=== PATIENT | male | born 1970 | race Caucasian/White ===

== ENCOUNTER 2022-09-27 15:30 | Inpatient (IN) | payer OTHER ==
[~2022-09-27] VITALS: Ht 160 cm; Wt 53.1 kg
--- NOTE | 2022-09-27 15:59 | NUR ---
PT REFUSED EKG
--- NOTE | 2022-09-27 16:10 | NUR ---
YADIRA KANG38 [facility] "Weak/SOB- missed dialysis twice". PLACED ON BED, AAOX4, BREATHING EVEN AND UNLABORED SATURATING 94% WITH 4LIT O2 VIA NC.
--- NOTE | 2022-09-27 16:11 | NUR ---
MOVE SHEET SUBMITTED.
[2022-09-27] MEDS ORDERED: SODI10PO PO (16:17)
[2022-09-27] MEDS ORDERED: LABE100T5 PO (16:17)
[2022-09-27] MEDS ORDERED: BRIM5DRO11 RIGHTEYE (16:17)
[2022-09-27] MEDS ORDERED: AMLO10TA4 PO (16:17)
[2022-09-27] MEDS ORDERED: INSU100V39 SQ (16:17)
[2022-09-27] MEDS ORDERED: ALBU1.257 IH (16:17)
[2022-09-27] MEDS ORDERED: LATA2.5D15 RIGHTEYE (16:17)
[2022-09-27] MEDS ORDERED: ESCI10TA PO (16:17)
[2022-09-27] MEDS ORDERED: ATOR40TA PO (16:17)
--- NOTE | 2022-09-27 16:39 | NUR ---
FOR FURTHER QUESTIONS: CALL [place] [facility]: [phone]
--- NOTE | 2022-09-27 16:40 | NUR ---
SALINE LOCK ESTABLISHED, BLOOD DRAWN AND SENT TO LAB
--- NOTE | 2022-09-27 16:41 | NUR ---
SWAB FOR COVID19 SENT TO LAB
[2022-09-27 16:59] LABS: BASOPHILS # (AUTO) 0.1 K/uL (0.0-0.2); BASOPHILS % (AUTO) 1.1 % (0.0-2.0); EOSINOPHILS % (AUTO) 1.7 % (0.0-6.0); HEMATOCRIT 22 % (39-51); HEMOGLOBIN 7.1 g/dL (13.5-17.5); LYMPHOCYTES # (AUTO) 0.6 K/uL (0.8-4.8); LYMPHOCYTES % (AUTO) 6.6 % (20.0-44.0); MEAN CORPUSCULAR HGB CONC 32 g/dl (31.0-36.0); MEAN CORPUSCULAR VOLUME 83 fL (80-96); MONOCYTES # (AUTO) 0.4 K/uL (0.1-1.30); MONOCYTES % (AUTO) 4.5 % (2.0-12.0); NEUTROPHILS # (AUTO) 7.3 K/uL (1.8-8.9); NEUTROPHILS % (AUTO) 86.1 % (43.0-81.0); PLATELET COUNT (AUTO) 256 K/uL (150-450); RED BLOOD CELL COUNT(AUTO) 2.65 MIL/uL (4.5-6.0); WHITE BLOOD COUNT (AUTO) 8.5 K/uL (4.3-11.0)
[2022-09-27 17:46] LABS: CALCIUM, SERUM 8.8 mg/dL (8.5-10.1); CREATININE 6.9 mg/dL (0.6-1.3)
[2022-09-27 18:07] LABS: POTASSIUM 7.3 mmol/L (3.5-5.1)
--- NOTE | 2022-09-27 18:30 | NUR ---
PT REFUSED EKG
--- NOTE | 2022-09-27 18:42 | NUR ---
Isabelle dumont in [facility] - 09/27/22 at 1856 by HASMUKH PATIENT REFUSED TAKING VITAL SIGNS.
--- NOTE | 2022-09-27 18:56 | NUR ---
PATIENT REFUSED VITAL SIGNS.
[2022-09-27] MEDS ORDERED: DEXTROSE 50%-WATER 50 ML DISP.SYRIN IV ONE (19:00)
[2022-09-27] MEDS ORDERED: INSULIN REGULAR, HUMAN 100 UNIT/ML 10 ML VIAL IV ONE (19:00)
[2022-09-27] MEDS ORDERED: SODIUM BICARBONATE SYR 50 MEQ/50 ML DISP.SYRIN IV ONE (19:00)
[2022-09-27] MEDS ORDERED: CALCIUM CHLORIDE 1,000 MG/10 ML DISP.SYRIN IV ONE (19:00)
[2022-09-27] MEDS ORDERED: ALBUTEROL FS 2.5 MG/3 ML VIAL.NEB NEB ONE (19:00)
--- NOTE | 2022-09-27 19:20 | NUR ---
PATIENT REFUSED MEDICINES FOR HYPERKALEMIA HOSPITALIST AWARE.
[2022-09-27] MEDS ORDERED: Z GUARD REMEDY 4 OZ OINT TP PRN (19:30)
[2022-09-27] MEDS ORDERED: DEXTROSE 50%-WATER 50 ML DISP.SYRIN IV PRN (19:30)
[2022-09-27] MEDS ORDERED: MAG HYDROX/AL HYDROX/SIMETH 30 ML UDC PO PRN (19:30)
[2022-09-27] MEDS ORDERED: MAGNESIUM HYDROXIDE 30 ML UDC PO PRN (19:30)
[2022-09-27] MEDS ORDERED: ONDANSETRON HCL/PF 4 MG/2 ML VIAL IVP PRN (19:30)
[2022-09-27] MEDS: HEPARIN SODIUM, PORCINE 5000 UNITS/1 ML VIAL SQ SCH (21:00)
[2022-09-27] MEDS: ATORVASTATIN 40 MG TABLET PO SCH (22:00)
[2022-09-27] MEDS ORDERED: LATANOPROST EYE DROP 0.005% 2.5 ML BOTTLE RIGHTEYE SCH (22:00)
[2022-09-27] MEDS: BLOOD SUGAR DIAGNOSTIC 1 EACH STRIP IN SCH (22:00)
--- NOTE | 2022-09-27 22:01 | NUR ---
REPORT GIVEN TO NAHID RN ROOM 315 FOR JORGE
--- NOTE | 2022-09-27 22:35 | NUR ---
RN NOTES - PATIENT ON HEMODIALYSIS WITH HD RN AT BEDSIDE.
--- NOTE | 2022-09-27 22:59 | NUR ---
RECEIVER/LABORER NOTES RECEIVED PATIENT FROM ER VIA [place] ACCOMPANIED BY RN AND COOLER OPERATOR. ON O2 2LPM VIA NASAL CANNULA, TOLERATING WELL. SATURATION: 95%. IV ACCESS AT R HAND #22, PATENT AND FLUSHING WELL. HD ACCESS AT R CHEST WALL, PERMACATH. WITH RIGHT SIDED WEAKNESS. REFUSED TO BE TOUCHED AT THIS TIME. PATIENT REFUSED TO BE ON EXTERNAL RESIDENTIAL REAL ESTATE APPRAISER. CHARGE NURSE MADE AWARE. SUPERVISOR PARTIAL DENTURE DEPARTMENT ON STANDBY. HE REFUSED TO TAKE ANY FORM OF MEDICATIONS AT THIS TIME. HE WANTS TO RETURN BACK TO THE FACILITY WHERE HE WAS LIVING AFTER THE DIALYSIS VERBALIZED. EXPLAINED THE NEED TO MONITOR HIS CONDITION X3. STILL REFUSED. CHARGE NURSE MADE AWARE. WILL CONTINUE TO MONITOR. Addendum: 09/27/22 at 2339 by NAHID CRUMP RN PATIENT REFUSED SKIN ASSESSMENT AT THIS TIME. EXPLAINED THE NEED FOR ASSESSMENT ON ADMISSION. REFUSED.
--- NOTE | 2022-09-27 23:56 | NUR ---
PATIENT BEEN SHOWING AGGRESSIVE BEHAVIOR TOWARDS HD NURSE AND WANTED TO TERMINATE HD SESSION NOW. CORE DIPPER DOCTOR MADE AWARE. WILL CONTINUE TO MONITOR.
[2022-09-28] VITALS (7 sets, daily range): BP systolic 156–191; BP diastolic 70–99
[2022-09-28] MEDS: ZOLPIDEM TARTRATE 5 MG TABLET PO PRN (02:58)
--- NOTE | 2022-09-28 02:58 | NUR ---
RN NOTES - PATIENT REQUESTED FOR A SLEEPING PILL. GIVEN AMBIEN 5MG TAB PRN, ORDERED. KEPT COMFORTABLE.
--- NOTE | 2022-09-28 03:15 | NUR ---
JEFE NOTES - PATIENT BEEN HAVING A LOOSE BOWEL MOVEMENT (DIARRHEA), WATERY BROWN STOOL X5 DIAPER CHANGE SINCE ADMISSION. Addendum: 09/28/22 at 0454 by NAHID CRUMP RN WILL COLLECT STOOL SPECIMEN ONCE ABLE. PATIENT INSTRUCTED.
[2022-09-28] MEDS: ACETAMINOPHEN 325 MG TABLET PO PRN (03:50)
--- NOTE | 2022-09-28 03:58 | NUR ---
RN NOTES - PATIENT WAS NOT ABLE TO SLEEP AFTER GIVING AMBIEN. OFFERED WARM BLANKET, DIMMED ROOM. WILL CONTINUE TO MONITOR
--- NOTE | 2022-09-28 06:57 | NUR ---
HRBP CLOSING NOTES PATIENT IS SITTING IN BED WATCHING TV, CALM. A/O X4. ON O2 2LPM VIA NASAL CANNULA, TOLERATING WELL. SATURATION: 95%. IV ACCESS AT R HAND #22, PATENT AND FLUSHING WELL. HD ACCESS AT R CHEST WALL, PERMACATH. WITH RIGHT SIDED WEAKNESS. REFUSED BLOOD SUGAR MONITORING. EXPLAINED BENEFIT X3. STILL REFUSED. SAFETY MEASURES MAINTAINED. WILL ENDORSE TO NEXT SHIFT RN FOR JORGE.
[2022-09-28 07:24] LABS: BASOPHILS % (AUTO) 0.7 % (0.0-2.0); EOSINOPHILS % (AUTO) 2.5 % (0.0-6.0); HEMATOCRIT 21 % (39-51); LYMPHOCYTES # (AUTO) 0.5 K/uL (0.8-4.8); LYMPHOCYTES % (AUTO) 7.3 % (20.0-44.0); MEAN CORPUSCULAR HGB CONC 33 g/dl (31.0-36.0); MEAN CORPUSCULAR VOLUME 83 fL (80-96); MONOCYTES # (AUTO) 0.4 K/uL (0.1-1.30); MONOCYTES % (AUTO) 5.4 % (2.0-12.0); NEUTROPHILS % (AUTO) 84.1 % (43.0-81.0); PLATELET COUNT (AUTO) 253 K/uL (150-450); RED BLOOD CELL COUNT(AUTO) 2.54 MIL/uL (4.5-6.0); WHITE BLOOD COUNT (AUTO) 7.1 K/uL (4.3-11.0)
[2022-09-28] MEDS: BLOOD SUGAR DIAGNOSTIC 1 EACH STRIP IN SCH ×4 (07:30→21:13)
--- NOTE | 2022-09-28 07:50 | NUR ---
RN OPENING NOTE PATIENT AWAKE IN BED RESTING A/O X 4. NO S/S OF PAIN NOTED AT THIS TIME. ON 2L OXYGEN VIA NC, NO DISTRESS OR SHORTNESS OF BREATH NOTED. IV ACCESS R HAND #22G, INTACT, PATENT AND FLUSHING WELL. PATIENT HAVE A EXTERNAL SCUBA DIVE TRAINING INSTRUCTOR WITH CURRENT READING OF SR AND HR OF 92. FALL AND SAFETY MEASURES IN PLACE, BED ALARM ON, BED IN LOW AND LOCK POSITION, CALL LIGHT AND TABLE WITHIN EASY REACH, SIDE RAILS X2. WILL CONTINUE TO MONITOR.
[2022-09-28 07:55] LABS: CALCIUM, SERUM 8.7 mg/dL (8.5-10.1); CREATININE 4.8 mg/dL (0.6-1.3); MAGNESIUM 2.6 mg/dL (1.8-2.4); PHOSPHORUS 7.1 mg/dL (2.5-4.9); POTASSIUM 5.9 mmol/L (3.5-5.1)
[2022-09-28] MEDS: LABETALOL HCL (100MG) 100 MG TABLET PO SCH ×2 (09:00→17:00)
[2022-09-28] MEDS: ESCITALOPRAM OXALATE (10 MG) 10 MG TABLET PO SCH ×2 (09:00→09:29)
[2022-09-28] MEDS: PANTOPRAZOLE 40 MG VIAL IV SCH ×2 (09:00→09:29)
[2022-09-28] MEDS: HEPARIN SODIUM, PORCINE 5000 UNITS/1 ML VIAL SQ SCH ×2 (09:00→20:32)
[2022-09-28] MEDS: AMLODIPINE BESYLATE 10 MG TABLET PO SCH (09:00)
[2022-09-28] MEDS: BRIMONIDINE TARTRATE OPHT SOLN 5 ML BOTTLE EACHEYE SCH ×3 (09:29→17:00)
--- NOTE | 2022-09-28 11:27 | NUR ---
RN NOTE PATIENT REFUSED TO TAKE HIS MORNING MEDICATIONS. PATIENT PULL OUT IV AND DO NOT WANT A NEW ONE. TRIED SEVERAL TIMES BUT PATIENT REFUSED EVERY TIME. PATIENT DOES NOT HAVE IV ACCESS AT THE MOMENT. WILL TRY AGAIN. WILL CONTINUE TO MONITOR.
--- NOTE | 2022-09-28 13:01 | NUR ---
RN NOTE PATIENT 1200 ACCU-CHECK WAS DONE, GLUCOSE 142, PATIENT REFUSED INSULIN COVERAGE. WILL CONTINUE TO MONITOR.
--- NOTE | 2022-09-28 17:41 | NUR ---
RN NOTE PATIENT IS RECEIVING HEMODIALYSIS AT MOMENT AND ONE UNIT OF PRBC WITH HEMODIALYSIS. PATIENT ALLOWED TO HAVE TEMPERATURE TAKEN AT THE BEGINNING OF TRANSFUSION BUT KEPT REFUSING AFTER THAT TO GET HIS TEMPERATURE TAKEN. PATIENT TOLERATING HEMODIALYSIS AND BLOOD TRANSFUSION WELL. WILL CONTINUE TO MONITOR.
--- NOTE | 2022-09-28 17:55 | NUR ---
RN NOTE PATIENT REFUSED ALL HIS 1700 MEDICATIONS AND ACCU-CHECK. MULTIPLE ATTEMPTS WERE MADE BUT PATIENT REFUSED EVERY TIME. CHARGE NURSE AWARE, WILL CONTINUE TO MONITOR.
--- NOTE | 2022-09-28 18:28 | NUR ---
RN NOTE PATIENT HAD HEMODIALYSIS, OUTPUT WAS 2L. ONE UNIT OF BLOOD WAS GIVEN WITH HEMODIALYSIS TOLERATED PROCEDURE WELL, NO REACTION. PATIENT IS IN ROOM RESTING COMFORTABLY, WILL CONTINUE TO MONITOR.
--- NOTE | 2022-09-28 18:52 | NUR ---
RN CLOSING NOTE PATIENT AWAKE IN BED RESTING A/O X 4. NO S/S OF PAIN NOTED AT THIS TIME. ON 2L OXYGEN VIA NC, NO DISTRESS OR SHORTNESS OF BREATH NOTED. NO IV ACCESS PATIENT PULL OUT IV AND DO NOT WANT A NEW ONE, MULTIPLE ATTEMPTS WERE MADE BUT PATIENT REFUSED EVERY TIME. PATIENT IS TELE BUT REFUSED EXTERNAL SILVICULTURE FORESTER, EXTERNAL SILVICULTURE FORESTER WAS RETURNED TO TELE DESK. PATIENT REFUSED MEDICATIONS AND ACCU-CHECKS DURING SHIFT. FALL AND SAFETY MEASURES IN PLACE, BED ALARM ON, BED IN LOW AND LOCK POSITION, CALL LIGHT AND TABLE WITHIN EASY REACH, SIDE RAILS X2. WILL ENDORSE TO BURNER HAND.
[2022-09-28] MEDS: ATORVASTATIN 40 MG TABLET PO SCH (21:13)
[2022-09-28] MEDS: LATANOPROST EYE DROP 0.005% 2.5 ML BOTTLE RIGHTEYE SCH (21:13)
--- NOTE | 2022-09-28 21:14 | NUR ---
LIPITOR, ACCUCHECK AND XALATAN REFUSED BY PATIENT, OFFERED X3, EXPLAINED TO PT RISKS AND BENEFITS
--- NOTE | 2022-09-28 21:34 | NUR ---
BP 191/99, REFUSED ANOTHER SET OF VITALS, REFUSED NORVASC AND LABETALOL DURING AM SHIFT. NOTIFIED RODRI REN.
[2022-09-29] MEDS: BLOOD SUGAR DIAGNOSTIC 1 EACH STRIP IN SCH ×4 (06:33→21:38)
[2022-09-29] MEDS: INSULIN REGULAR, HUMAN 100 UNIT/ML 3 ML VIAL SQ PRN ×2 (06:34→21:40)
--- NOTE | 2022-09-29 06:39 | NUR ---
ALERT/ORIENTED X3, NO COMPLAIN OF PAIN, GENERALIZED WEAKNESS, ESRD ON HD MWF, RIGHT IJ HD CATH, NEEDY, NOT COMPLIANT WITH TREATMENT AND MEDICATION, REFUSED ACCUCHECK AT 0630.
--- NOTE | 2022-09-29 07:47 | NUR ---
RN OPENING NOTE PATIENT AWAKE IN BED RESTING A/O X 4. NO S/S OF PAIN NOTED AT THIS TIME. ON 2L OXYGEN VIA NC, NO DISTRESS OR SHORTNESS OF BREATH NOTED. IV ACCESS R HAND #22G, INTACT, NOTED INTACT. FALL AND SAFETY MEASURES IN PLACE, BED ALARM ON, BED IN LOW AND LOCK POSITION, CALL LIGHT AND TABLE WITHIN EASY REACH, SIDE RAILS X2. WILL CONTINUE PLAN OF CARE. Addendum: 09/29/22 at 0938 by TABITHA HAN RN PATIENT REFUSED TELE MONITOR TO BE PLACED.
[2022-09-29 08:35] VITALS: BP 178/87
[2022-09-29 08:49] LABS: CALCIUM, SERUM 8.8 mg/dL (8.5-10.1); CREATININE 4.2 mg/dL (0.6-1.3); MAGNESIUM 2.5 mg/dL (1.8-2.4); PHOSPHORUS 6.9 mg/dL (2.5-4.9); POTASSIUM 5.9 mmol/L (3.5-5.1)
[2022-09-29] MEDS: BRIMONIDINE TARTRATE OPHT SOLN 5 ML BOTTLE EACHEYE SCH ×3 (08:53→16:22)
[2022-09-29] MEDS: ESCITALOPRAM OXALATE (10 MG) 10 MG TABLET PO SCH (08:53)
[2022-09-29] MEDS: PANTOPRAZOLE 40 MG VIAL IV SCH (08:53)
[2022-09-29] MEDS: HEPARIN SODIUM, PORCINE 5000 UNITS/1 ML VIAL SQ SCH ×2 (08:54→21:38)
[2022-09-29] MEDS: LOSARTAN POTASSIUM 50 MG TABLET PO SCH (09:20)
[2022-09-29] MEDS: AMLODIPINE BESYLATE 10 MG TABLET PO SCH (09:21)
[2022-09-29] MEDS: LABETALOL HCL (100MG) 100 MG TABLET PO SCH ×2 (09:21→16:46)
[2022-09-29 10:01] LABS: BASOPHILS # (AUTO) 0.1 K/uL (0.0-0.2); BASOPHILS % (AUTO) 0.9 % (0.0-2.0); EOSINOPHILS % (AUTO) 2.4 % (0.0-6.0); HEMATOCRIT 26 % (39-51); HEMOGLOBIN 8.6 g/dL (13.5-17.5); LYMPHOCYTES # (AUTO) 0.6 K/uL (0.8-4.8); LYMPHOCYTES % (AUTO) 10.7 % (20.0-44.0); MEAN CORPUSCULAR HGB CONC 33 g/dl (31.0-36.0); MEAN CORPUSCULAR VOLUME 83 fL (80-96); MONOCYTES # (AUTO) 0.5 K/uL (0.1-1.30); MONOCYTES % (AUTO) 8.2 % (2.0-12.0); NEUTROPHILS # (AUTO) 4.7 K/uL (1.8-8.9); NEUTROPHILS % (AUTO) 77.8 % (43.0-81.0); PLATELET COUNT (AUTO) 227 K/uL (150-450); RED BLOOD CELL COUNT(AUTO) 3.14 MIL/uL (4.5-6.0)
--- NOTE | 2022-09-29 10:13 | NUR ---
RN NOTES PATIENT REFUSED MEDICATIONS, PATIENT STATED HE WILL ONLY TAKE BLOOD PRESSURE MEDICATION, MD MADE AWARE WHEN ON THE BEDSIDE, HEMODIALYSIS IS ON GOING AT THIS MOMENT. WILL CONTINUE PLAN OF CARE.
--- NOTE | 2022-09-29 12:12 | NUR ---
RN NOTES PATIENT REFUSED INSULIN COVERAGE, PATIENT EATING LUNCH AT THIS MOMENT, ON DIALYSIS, WILL CONTINUE PLAN OF CARE.
[2022-09-29 16:12] VITALS: BP 174/75
--- NOTE | 2022-09-29 16:52 | NUR ---
RN NOTES PATIENT REFUSED INSULIN COVERAGE FOR BLOOD SUGAR 201MG/DL, WILL CONTINUE PLAN OF CARE.
--- NOTE | 2022-09-29 18:22 | NUR ---
TECHNICAL TRAINING SPECIALIST CLOSING NOTE PATIENT AWAKE IN BED RESTING A/O X 4. NO S/S OF PAIN NOTED AT THIS TIME. ON 2L OXYGEN VIA NC, NO DISTRESS OR SHORTNESS OF BREATH NOTED. RIGHT UPPER CHEST PERMACATH NOTED INTACT. FALL AND SAFETY MEASURES IN PLACE, BED ALARM ON, BED IN LOW AND LOCK POSITION, CALL LIGHT AND TABLE WITHIN EASY REACH, SIDE RAILS X2. WILL ENDORSE TO HOSPITALITY DIRECTOR NURSE FOR JORGE.
--- NOTE | 2022-09-29 18:42 | NUR ---
DATA WAREHOUSE DEVELOPER NOTES PATIENT REFUSED TELE MONITOR TO BE PLACED, BLOOD PRESSURE MEDICATION GIVEN, RECHECKED BP 155/79, WILL ENDORSE TO NIGHT NURSE FOR JORGE.
--- NOTE | 2022-09-29 19:30 | NUR ---
HOME MANAGEMENT SUPERVISOR OPENING NOTE RECEIVED PATIENT SITTING IN BED, ALERT AND ORIENTED X4. ABLE TO COMMUNICATE NEEDS WITH THE STAFFS. AFEBRILE AND NOT IN ANY FORM OF ACUTE DISTRESS. ON O2 INHALATION VIA NASAL CANNULA AT 2LPM BUT PATIENT TRIES TO TAKE IT OFF DURING INITIAL ROUNDS. PER REPORT FROM 1ST SHIFT, PATIENT REFUSED CARDIAC MONITORING, MD AWARE. HEMODIALYSIS DONE THIS MORNING WITH 2LITER OUTPUT. SAFETY MEASURES IN PLACE. KEPT BED IN LOCKED AND IN LOW POSITION. SIDE RAILS UP X2. ADVISED TO USE THE CALL LIGHT WHEN IN NEED OF ASSISTANCE.
[2022-09-29] MEDS: ATORVASTATIN 40 MG TABLET PO SCH (21:38)
[2022-09-29] MEDS: ZOLPIDEM TARTRATE 5 MG TABLET PO PRN (21:52)
[2022-09-29] MEDS: LATANOPROST EYE DROP 0.005% 2.5 ML BOTTLE RIGHTEYE SCH (21:54)
[2022-09-29 23:46] VITALS: BP 124/61
[2022-09-30] VITALS: BP 144/71
[2022-09-30] MEDS: ACETAMINOPHEN 325 MG TABLET PO PRN (00:26)
[2022-09-30] MEDS: BLOOD SUGAR DIAGNOSTIC 1 EACH STRIP IN SCH ×4 (06:32→21:26)
--- NOTE | 2022-09-30 06:39 | NUR ---
PATIENT FINANCIAL REPRESENTATIVE CLOSING NOTE PATIENT IN BED, ASLEEP BUT EASY TO AROUSE AND RESPONSIVE. ABLE TO COMMUNICATE NEEDS WITH THE STAFFS. AFEBRILE AND NOT IN ANY FORM OF ACUTE DISTRESS. ON O2 INHALATION VIA NASAL CANNULA AT 2LPM. PER REPORT FROM 1ST SHIFT, PATIENT REFUSED CARDIAC MONITORING, MD AWARE. HEMODIALYSIS DONE THIS MORNING WITH 2LITER OUTPUT. MONITORED FOR ANY S/SX. OF HYPO/HYPERGLYCEMIA. MEDICATED ORDERED. SAFETY MEASURES IN PLACE. KEPT BED IN LOCKED AND IN LOW POSITION. SIDE RAILS UP X2. ADVISED TO USE THE CALL LIGHT WHEN IN NEED OF ASSISTANCE. ALL NURSING NEEDS ATTENDED. ENDORSED TO INCOMING NURSE FOR CONTINUITY OF CARE.
--- NOTE | 2022-09-30 07:05 | NUR ---
PRODUCT DEVELOPMENT COORDINATOR OPENING NOTES: RECEIVED PT SITTING AT THE EDGE OF THE BED, AWAKE, ALERT AND ORIENTED X 4, RESPIRATION IS EVEN AND UNLABORED.ON ROOM AIR, NO SOB NOTED.DENIED PAIN OR DISCOMFORT.NOTED WITH RIGHT UPPER CHEST DIALYSIS CATHETER,NO S/S OF BLEEDING, MADE AWARE THAT HE WILL RECEIVE DIALYSIS CONTINUE TO REFUSE SAYING HE WANTS BREAK TODAY. WILL MONITOR
[2022-09-30 08:00] VITALS: BP 128/71
[2022-09-30] MEDS: PANTOPRAZOLE 40 MG TABLET.DR PO SCH ×2 (08:31→09:00)
[2022-09-30] MEDS: ESCITALOPRAM OXALATE (10 MG) 10 MG TABLET PO SCH ×2 (08:31→09:00)
[2022-09-30 08:43] LABS: BASOPHILS % (AUTO) 0.9 % (0.0-2.0); EOSINOPHILS % (AUTO) 3.7 % (0.0-6.0); HEMATOCRIT 24 % (39-51); HEMOGLOBIN 7.8 g/dL (13.5-17.5); LYMPHOCYTES # (AUTO) 0.8 K/uL (0.8-4.8); LYMPHOCYTES % (AUTO) 13.9 % (20.0-44.0); MEAN CORPUSCULAR HGB CONC 32 g/dl (31.0-36.0); MEAN CORPUSCULAR VOLUME 83 fL (80-96); MONOCYTES # (AUTO) 0.6 K/uL (0.1-1.30); MONOCYTES % (AUTO) 10.4 % (2.0-12.0); NEUTROPHILS % (AUTO) 71.1 % (43.0-81.0); PLATELET COUNT (AUTO) 216 K/uL (150-450); RED BLOOD CELL COUNT(AUTO) 2.89 MIL/uL (4.5-6.0); WHITE BLOOD COUNT (AUTO) 5.6 K/uL (4.3-11.0)
[2022-09-30 08:58] LABS: ALBUMIN 2.9 g/dL (3.4-5.0); BILIRUBIN,TOTAL 0.9 mg/dL (0.2-1.0); CALCIUM, SERUM 8.4 mg/dL (8.5-10.1); CREATININE 3.4 mg/dL (0.6-1.3); MAGNESIUM 2.1 mg/dL (1.8-2.4); PHOSPHORUS 5.8 mg/dL (2.5-4.9); POTASSIUM 4.4 mmol/L (3.5-5.1); TOTAL PROTEIN, SERUM 6.5 g/dL (6.4-8.2)
[2022-09-30] MEDS: HEPARIN SODIUM, PORCINE 5000 UNITS/1 ML VIAL SQ SCH ×2 (09:00→21:29)
[2022-09-30] MEDS: LABETALOL HCL (100MG) 100 MG TABLET PO SCH ×2 (09:00→17:00)
[2022-09-30] MEDS: AMLODIPINE BESYLATE 10 MG TABLET PO SCH (09:00)
[2022-09-30] MEDS: LOSARTAN POTASSIUM 50 MG TABLET PO SCH (09:00)
[2022-09-30] MEDS: BRIMONIDINE TARTRATE OPHT SOLN 5 ML BOTTLE EACHEYE SCH ×3 (09:00→17:00)
--- NOTE | 2022-09-30 10:22 | NUR ---
RN notes: spoke to DR Avery pt refuses medication and did not complete dialysis md said we cannot force him he has the right to refuse with order of psych eval
--- NOTE | 2022-09-30 12:01 | NUR ---
RN NOTES: ASKED PT TO CHECK BLOOD SUGAR HE REFUSED, EXPLAINED RISK AND BENEFITS STILL REFUSES
--- NOTE | 2022-09-30 15:53 | NUR ---
RN notes: noted pt with 10 times watery bowel movement, also asking for medicine for itchiness spoke to dr Avery with order to collect stool for c-diff and adan anne, order noted and carried out
[2022-09-30 16:00] VITALS: BP 163/86
[2022-09-30] MEDS ORDERED: diphenhydrAMINE HCL 50 MG/ML VIAL IV PRN (16:00)
--- NOTE | 2022-09-30 17:24 | NUR ---
RN NOTES: PT CONTINUE TO REFUSE MEDICINE AND BLOOD SUGAR CHECK EXPLAINED RISK AND BENEFITS HE SAID I HAVE THE RIGHT TO REFUSE , AWAITING FOR PSYCH CONSULT
--- NOTE | 2022-09-30 19:00 | NUR ---
RN notes: pt refused blood draw notified him blood draw will help hospice case manager to discharge you he agree, blood drawn, charge nurse Elidia aware.unable to obtain stool sample due to watery stool he can not tell when he is going to have bowel movement
--- NOTE | 2022-09-30 19:30 | NUR ---
RN CLOSING NOTES: PT IN BED AWAKE, A/O 3X. ON 2 LITER OXYGEN VIA NASAL CANULA NO S/S OF ACUTE DISTRESS, VITALS WNL. TUBE FEEDING . BED IN LOWEST POSITION BED IN LOW AND LOCKED POSITION, CALL LIGHT WITHIN REACH. ENDORSED FOR FOAM RUBBER MOLDER RN FOR JORGE
--- NOTE | 2022-09-30 19:36 | NUR ---
RN OPENING NOTE PATIENT AWAKE IN BED. A/OX4. NO S/S OF DISTRESS, BREATHING WITHOUT DIFFICULTY ON ROOM AIR. DAY NURSE REPORTED PATIENT HAS PULLED OUT IV ACCESS PREVIOUSLY AND HAS REFUSED REINSERTION EVER SINCE; WILL ENCOURAGE PATIENT TO HAVE REINSERTION. SAFETY MEASURES IN PLACE: BED LOCKED AND AT LOWEST POSITION, RAILS UP X2, CALL CASTELLANOS WITHIN REACH. WILL CONTINUE TO MONITOR PATIENT. Addendum: 09/30/22 at 1940 by MARIANA BHATIA RN TELE READS SR 75
[2022-09-30 20:00] VITALS: BP 162/86
[2022-09-30] MEDS: LATANOPROST EYE DROP 0.005% 2.5 ML BOTTLE RIGHTEYE SCH (21:26)
[2022-09-30] MEDS: INSULIN REGULAR, HUMAN 100 UNIT/ML 3 ML VIAL SQ PRN (21:31)
[2022-09-30] MEDS: ATORVASTATIN 40 MG TABLET PO SCH (21:35)
--- NOTE | 2022-10-01 00:45 | NUR ---
RN NOTE PATIENT HAS A CURRENT BP 172/68. PATIENT REFUSED SCHEDULED BP MEDS FOR THE DAY. BP RE-CHECKED AND REMAINS THE SAME. ON-CALL MIKAL DUNN, NOTIFIED. NO NEW ORDERS FOR NOW. PATIENT O/W STABLE; WILL CONTINUE TO MONITOR PATIENT.
--- NOTE | 2022-10-01 02:49 | NUR ---
RN NOTE PATIENT COMPLAINS OF A HEADACHE. PATIENT DENIES DIZZINESS. CURRENT BP 182/80. ON-CALL MIKAL DUNN, NOTIFIED. NO NEW ORDERS, STATED TYLENOL FOR HEADACHE. PATIENT O/W STABLE; WILL CONTINUE TO MONITOR.
[2022-10-01] MEDS: ACETAMINOPHEN 325 MG TABLET PO PRN (02:55)
[2022-10-01 04:00] VITALS: BP 175/70
[2022-10-01] MEDS: BLOOD SUGAR DIAGNOSTIC 1 EACH STRIP IN SCH ×4 (06:44→22:30)
[2022-10-01] MEDS: INSULIN REGULAR, HUMAN 100 UNIT/ML 3 ML VIAL SQ PRN ×2 (06:45→12:28)
--- NOTE | 2022-10-01 06:48 | NUR ---
RN CLOSING NOTE PATIENT AWAKE IN BED. A/OX4. NO S/S OF DISTRESS, BREATHING WITHOUT DIFFICULTY ON ROOM AIR. PATIENT CONTINUES TO REFUSE IV ACCESS INSERTION, TELE MONITOR, AND SOME OF HIS MEDICATIONS. SAFETY MEASURES IN PLACE: BED LOCKED AND AT LOWEST POSITION, RAILS UP X2, CALL CASTELLANOS WITHIN REACH. WILL ENDORSE TO NEXT SHIFT FOR OJRGE.
--- NOTE | 2022-10-01 07:43 | NUR ---
DETENTION DEPUTY NOTES PT IN BED, AWAKE, ALERT, NO COMPLAINT AT THIS TIME, NOT IN DISTRESS, CALL LIGHT WITHIN REACH.
[2022-10-01 08:00] VITALS: BP 167/87
[2022-10-01] MEDS: BRIMONIDINE TARTRATE OPHT SOLN 5 ML BOTTLE EACHEYE SCH ×5 (09:00→17:00)
[2022-10-01] MEDS: HEPARIN SODIUM, PORCINE 5000 UNITS/1 ML VIAL SQ SCH ×2 (09:00→21:00)
[2022-10-01] MEDS: PANTOPRAZOLE 40 MG TABLET.DR PO SCH (09:59)
[2022-10-01] MEDS: LOSARTAN POTASSIUM 50 MG TABLET PO SCH (09:59)
[2022-10-01] MEDS: LABETALOL HCL (100MG) 100 MG TABLET PO SCH ×3 (09:59→17:00)
[2022-10-01] MEDS: ESCITALOPRAM OXALATE (10 MG) 10 MG TABLET PO SCH (10:00)
[2022-10-01] MEDS: AMLODIPINE BESYLATE 10 MG TABLET PO SCH (10:00)
[2022-10-01 12:00] VITALS: BP 161/69
--- NOTE | 2022-10-01 13:03 | NUR ---
CHILDCARE DIRECTOR NOTES PT IN BED, AWAKE, ALERT AND ORIENTED, NEEDS ATTENDED, STILL REFUSING IV INSERTION, REFUSED AM LABS, REFUSED INSULIN, DR. ABEL INFORMED.
[2022-10-01 16:00] VITALS: BP 154/71
--- NOTE | 2022-10-01 18:46 | NUR ---
REAL ESTATE PHOTOGRAPHER NOTES PT IN BED, SLEEPS INTERMITTENTLY, NEEDY BUT REFUSED PM MEDS, MD AWARE, KEPT WARM AND COMFORTABLE IN BED, ENCOURAGED INCREASED ORAL INTAKE, PERINEAL CARE PROVIDED NEEDED.
--- NOTE | 2022-10-01 19:00 | NUR ---
FOREIGN STUDENT ADVISER OPENING NOTE PATIENT IS AWAKE, SITTING IN BED. A/O X 4. HE IS ON 2 LPM OXYGEN VIA NC, BREATHING EVENLY AND UNLABORED,NO S/S OF SOB OR DISTRESS. ACCORDING TO THE CHANGE SHIFT REPORT BY DAY SHIFT NURSE, PATIENT REFUSED HAVING IV ACCESS AND TAKING MEDICATIONS; PATIENT ALSO REFUSED HAVING EXTERNAL HEART MONITOR; DOCTOR AWARE.TALKED WITH THE PATIENT, AND EDUCATED THE PATIENT TO HAVE THE EXTERNAL HEART MONITOR ON; PATIENT REFUSED. PATIENT ALSO REFUSED HAVING IV ACCESS. PATIENT IS ABLE TO VERBALIZE HIS NEEDS.SAFETY MEASURES IN PLACE: BED LOCKED AND AT LOWEST POSITION, RAILS UP X2, CALL CASTELLANOS WITHIN REACH. WILL CONTINUE MONITORING THIS PATIENT AND PROVIDE THE NEEDS HE NEEDS.
--- NOTE | 2022-10-01 20:10 | NUR ---
DUPLEX TRIMMER NOTE PATIENT IS NAUSEA AND VOMITING OUT ABOUT 30 ML OF GREENISH YELLOWISH COLOR LIQUID. ASSESSED THE PATIENT AND ASKED THE PATIENT WHETHER HE WANTED TO HAVE MEDICATION FOR N/V, PATIENT REFUSED. CHARGE NURSE, MARCELO, NOTIFIED.
[2022-10-01] MEDS: ATORVASTATIN 40 MG TABLET PO SCH (22:00)
[2022-10-01] MEDS: LATANOPROST EYE DROP 0.005% 2.5 ML BOTTLE RIGHTEYE SCH (22:00)
--- NOTE | 2022-10-01 22:00 | NUR ---
TROMPER NOTE PATIENT REFUSED MEDICATIONS DUE AT 2100 AND 2200 TODAY. CHARGE NURSE, MARCELO, NOTIFIED.
--- NOTE | 2022-10-01 22:20 | NUR ---
CHEESE GRADER NOTE PATIENT STATED HE FELT NAUSEA. ASSESSED THE PATIENT AND ASKED PATIENT'S PERMISSION FOR TAKING HIS VITAL SIGNS, PATIENT REFUSED. EXPLAINED TO THE PATIENT THAT WE NEEDED TO FIND OUT WHAT MAKES HIM N/V, PATIENT STATED THAT HIS N/V IS BECAUSE "I DID NOT FINISH MY DIALYSIS YESTERDAY". CHECKED THE PATIENT'S BLOOD SUGAR, IT IS 130. ASKED THE PATIENT TO INSERT AN IV ACCESS FOR HIM SO HE IS ABLE TO HAVE IV MEDICATIONS FOR N/V, PATIENT REFUSED. CHARGE NURSE, TEMITOPE ROBERTSON.
--- NOTE | 2022-10-01 22:50 | NUR ---
MANUFACTURING ASSEMBLER NOTE PATIENT IS ASKING FOR MILK AND PEANUT BUTTER. PROVIDED PATIENT ONE CARTON OF MILK, AND 4 SMALL CONTAINERS OF PEANUT BUTTER. OPENED ALL THEM UP, AND PATIENT SAID IT WAS FINE AND HE WAS GOING TO EAT THE PEANUT BUTTER AND DRINK THE MILK. OFFERED HIM THE SANDWICH, HE REFUSED.
[2022-10-02] MEDS: BLOOD SUGAR DIAGNOSTIC 1 EACH STRIP IN SCH ×4 (07:30→21:39)
--- NOTE | 2022-10-02 07:30 | NUR ---
TWISTER FRAME TENDER CLOSING NOTE PATIENT IS SLEEPING IN BED. HE IS ON 2 LPM OXYGEN VIA NC, BREATHING EVENLY AND UNLABORED,NO S/S OF SOB OR DISTRESS. DURING THE SHIFT, PATIENT HAS REFUSED MEDICATIONS DUE AND AM LAB DRAW. TALKED WITH THE PATIENT, AND EDUCATED THE PATIENT TO HAVE THE EXTERNAL HEART MONITOR ON; PATIENT REFUSED WELL. PATIENT ALSO REFUSED HAVING IV ACCESS. PATIENT IS ABLE TO VERBALIZE HIS NEEDS. HOWEVER, HE IS NOT COMPLIANT WITH THE TREATMENT AND CARE. CHARGE NURSE, MARCELO, NOTIFIED. SAFETY MEASURES IN PLACE: BED LOCKED AND AT LOWEST POSITION, RAILS UP X2, CALL CASTELLANOS WITHIN REACH. WILL ENDORSE NEXT SHIFT NURSE FOR CONTINUE PATIENT CARE.
--- NOTE | 2022-10-02 07:30 | NUR ---
ACCESS RN NOTES PT IN BED, ASLEEP, EASY TO AROUSE, ALERT AND ORIENTED, REFUSED VITAL SIGNS, PT STRONGLY REFUSES HEMODIALYSIS TODAY, EXPLAINED RISKS OF MISSING IT AND BENEFITS OF CONTINUED TREATMENT, STILL REFUSES, SAYS HE DOES NOT WANT IT, DIALYSIS NURSE BETTINA SPOKE WITH PT WELL AND IS REFUSING DIALYSIS TREATMENT, PT ALSO REFUSED ALL MORNING MEDICATIONS.
[2022-10-02] MEDS: LOSARTAN POTASSIUM 50 MG TABLET PO SCH (09:00)
[2022-10-02] MEDS: BRIMONIDINE TARTRATE OPHT SOLN 5 ML BOTTLE EACHEYE SCH ×3 (09:00→17:00)
[2022-10-02] MEDS: LABETALOL HCL (100MG) 100 MG TABLET PO SCH ×2 (09:00→17:00)
[2022-10-02] MEDS: AMLODIPINE BESYLATE 10 MG TABLET PO SCH (09:00)
[2022-10-02] MEDS: PANTOPRAZOLE 40 MG TABLET.DR PO SCH (09:00)
[2022-10-02] MEDS: ESCITALOPRAM OXALATE (10 MG) 10 MG TABLET PO SCH (09:00)
[2022-10-02] MEDS: HEPARIN SODIUM, PORCINE 5000 UNITS/1 ML VIAL SQ SCH ×3 (09:00→21:38)
--- NOTE | 2022-10-02 13:40 | NUR ---
SS Consult: SS Consult requested per pt.s request. The pt. is a 51-year-old male pt. admitted for weakness and missed HD per EMR. Upon SS consult, the pt. is Alert & Oriented x 4 and makes avoidant eye contact. The pt. appears unkempt with irritable mood & depressed affect. Pt.s speech is clear and thought process is WNL. Pt. remained, calm & cooperative throughout interview. Pt. denies SI/HI and denies hallucinations. Pt. became offended when SW asked about his mental health history. Pt. refused to answer. However, per EMR, pt. is on antidepressants. SW explored pt.s living situation. Patient states was last residing at [facility] [phone] . However, per CM, facility is not accepting pt. back and will assist with alternate placement. SW discussed alternate discharge options including B&C. Pt. stated he does not have any income. SW explored pt.s drug & ETOH use. Pt. denies any alcohol & drug use. Pt. stated he is independent with some ADLs and needs assistance with others. TATUM explored pt.s support system. Pt. stated his mother, is his mother is his support system. Pt. wanted to speak to to assist with obtaining his mothers contact information from [facility] [phone]. TATUM provided pt. with his mother, Arthur [phone]. Plan: Case management will assist with finding alternate placement. Pt. is aware and agreeable.
--- NOTE | 2022-10-02 19:04 | NUR ---
RN CLOSING NOTE PATIENT AWAKE IN BED. A/OX4. NO S/S OF DISTRESS, BREATHING WITHOUT DIFFICULTY ON ROOM AIR. PATIENT CONTINUES TO REFUSE IV ACCESS INSERTION, TELE MONITOR, AND SOME OF HIS MEDICATIONS HOWEVER, AGREED FOR A DIALYSIS PROCEDURE, DOCTOR PAGE AWARE. SAFETY MEASURES IN PLACE: BED LOCKED AND AT LOWEST POSITION, RAILS UP X2, CALL CASTELLANOS WITHIN REACH. WILL ENDORSE TO NEXT SHIFT FOR JORGE.
--- NOTE | 2022-10-02 19:10 | NUR ---
ATHLETIC SCOUT OPENING NOTE PATIENT IS AWAKE, SITTING IN BED. A/O X 4. HE IS ON 2 LPM OXYGEN VIA NC, BREATHING EVENLY AND UNLABORED,NO S/S OF SOB OR DISTRESS. ACCORDING TO THE CHANGE SHIFT REPORT BY DAY SHIFT NURSE, PATIENT REFUSED HAVING IV ACCESS AND TAKING MEDICATIONS; PATIENT ALSO REFUSED HAVING EXTERNAL HEART MONITOR; DOCTOR AWARE.TALKED WITH THE PATIENT, AND EDUCATED THE PATIENT TO HAVE THE EXTERNAL HEART MONITOR ON; PATIENT REFUSED. PATIENT ALSO REFUSED HAVING IV ACCESS. PATIENT IS ABLE TO VERBALIZE HIS NEEDS. SAFETY MEASURES IN PLACE: BED LOCKED AND AT LOWEST POSITION, RAILS UP X2, CALL CASTELLANOS WITHIN REACH. WILL CONTINUE MONITORING THIS PATIENT AND PROVIDE THE NEEDS HE NEEDS.
[2022-10-02] MEDS: LATANOPROST EYE DROP 0.005% 2.5 ML BOTTLE RIGHTEYE SCH (21:37)
[2022-10-02] MEDS: ATORVASTATIN 40 MG TABLET PO SCH (21:37)
--- NOTE | 2022-10-02 22:15 | NUR ---
POINTER HELPER NOTE PATIENT REFUSED MEDICATIONS DUE AT 2100 AND 2200 TONIGHT. EDUCATED THE PATIENT THE IMPORTANCE OF HAVING THE MEDICATIONS ON SCHEDULE, PATIENT VERBALIZED THAT "I CAN TAKE THE MEDICATIONS I WANT" ,"GET OUT OF MY ROOM".
--- NOTE | 2022-10-03 07:00 | NUR ---
INFORMATION SYSTEMS AUDIT MANAGER CLOSING NOTE PATIENT IS SLEEPING IN BED. HE IS ON 2 LPM OXYGEN VIA NC, BREATHING EVENLY AND UNLABORED,NO S/S OF SOB OR DISTRESS. THROUGH THE SHIFT, PATIENT REFUSED HAVING IV ACCES, BLOOD SUGAR CHECK, AND TAKING MEDICATIONS. PATIENT ALSO REFUSED HAVING EXTERNAL HEART MONITOR. DOCTOR AWARE.TALKED WITH THE PATIENT, AND EDUCATED THE PATIENT TO HAVE THE EXTERNAL HEART MONITOR ON; PATIENT REFUSED. PATIENT IS ABLE TO VERBALIZE HIS NEEDS THROUGH THE SHIFT. SAFETY MEASURES IN PLACE: BED LOCKED AND AT LOWEST POSITION, RAILS UP X2, CALL CASTELLANOS WITHIN REACH. WILL ENDORSE THE NEXT SHIFT NURSE FOR CONTINUE CARE OF THIS PATIENT.
[2022-10-03] MEDS: BLOOD SUGAR DIAGNOSTIC 1 EACH STRIP IN SCH ×4 (07:30→22:00)
--- NOTE | 2022-10-03 07:38 | NUR ---
ELECTRIC MILKERS INSTALLER OPENING NOTE RECEIVED PATIENT AWAKE, LYING IN BED, A/O X 4, ON 2 LPM OXYGEN VIA NC, BREATHING EVENLY AND UNLABORED,WITHOUT ANY S/S OF RESPIRATORY OR ANY APPARENT DISTRESS. PATIENT HAS NO IV ACCESS, EDUCATED AND ENCOURAGED BUT STILL REFUSED. SUPPOSED TO BE ON TELEMONITORING BUT HE REFUSED WELL. MD AND CHARGE NURSE ARE AWARE OF PATIENT'S NON-COMPLIANCE. PATIENT IS ABLE TO VERBALIZE HIS NEEDS. SAFETY MEASURES IN PLACE: BED LOCKED AND AT LOWEST POSITION, RAILS UP X2, CALL LIGHT WITHIN REACH. WILL CONTINUE MONITORING THIS PATIENT.
--- NOTE | 2022-10-03 08:30 | NUR ---
RN NOTES - HD DONE HD NURSE BETTINA REPORTS OUTPUT OF 1.5 L OF FLUIDS. PATIENT REMAINS STABLE. Addendum: 10/03/22 at 1213 by KELLY CADE RN DISREGARD, WRONG PATIENT
[2022-10-03] MEDS: AMLODIPINE BESYLATE 10 MG TABLET PO SCH (09:00)
[2022-10-03] MEDS: PANTOPRAZOLE 40 MG TABLET.DR PO SCH (09:00)
[2022-10-03] MEDS: BRIMONIDINE TARTRATE OPHT SOLN 5 ML BOTTLE EACHEYE SCH ×3 (09:00→17:00)
[2022-10-03] MEDS: ESCITALOPRAM OXALATE (10 MG) 10 MG TABLET PO SCH (09:00)
[2022-10-03] MEDS: LOSARTAN POTASSIUM 50 MG TABLET PO SCH (09:00)
[2022-10-03] MEDS: LABETALOL HCL (100MG) 100 MG TABLET PO SCH ×2 (09:00→17:00)
--- NOTE | 2022-10-03 09:15 | NUR ---
RN NOTES - NON COMPLIANCE PATIENT REFUSED ROUTINE VS, ACCU CHECK, BLOOD DRAW, TELEMETRY BOX, AND MEDICATION DUE AT 0900 DESPITE ENCOURAGEMENT AND EDUCATION.
--- NOTE | 2022-10-03 11:13 | NUR ---
RN NOTES - BLOOD GLUCOSE CHECK REFUSED, ENCOURAGEMENT AND EDUCATION TO NO AVAIL.
[2022-10-03] MEDS: INSULIN REGULAR, HUMAN 100 UNIT/ML 3 ML VIAL SQ PRN ×2 (11:36→18:57)
--- NOTE | 2022-10-03 17:00 | NUR ---
RN NOTES - PATIENT AGREED TO CHECK BLOOD GLUCOSE BUT REFUSED INSULIN
--- NOTE | 2022-10-03 19:35 | NUR ---
ENVIRONMENTAL SERVICES DIRECTOR OPENING NOTE PATIENT AWAKE, SITTING IN BED, A/O X 4, ON 2 LPM OXYGEN VIA NC, BREATHING EVENLY AND UNLABORED,WITHOUT ANY S/S OF RESPIRATORY OR ANY APPARENT DISTRESS. STILL HAS NO IV ACCESS, EDUCATED AND ENCOURAGED BUT STILL REFUSED. STILL REFUSED TELEMONITORING. MD AND CHARGE NURSE ARE AWARE OF PATIENT'S NON-COMPLIANCE. PATIENT IS ABLE TO VERBALIZE HIS NEEDS. ALL NEEDS MET, ALL DUE MEDS OFFERED. SAFETY MEASURES IN PLACE: BED LOCKED AND AT LOWEST POSITION, RAILS UP X2, CALL LIGHT WITHIN REACH. ENDORSED TO THE BAKERY DECORATOR NURSE.
[2022-10-03 20:00] VITALS: BP 189/90
[2022-10-03] MEDS: LATANOPROST EYE DROP 0.005% 2.5 ML BOTTLE RIGHTEYE SCH (22:00)
--- NOTE | 2022-10-03 22:00 | NUR ---
RN NOTES: MEDICATION FOR RIGHT EYS LATANOPROT NOT GIVEN PATIENT REFUSED.
[2022-10-03] MEDS: HEPARIN SODIUM, PORCINE 5000 UNITS/1 ML VIAL SQ SCH (22:17)
[2022-10-03] MEDS: ATORVASTATIN 40 MG TABLET PO SCH (22:17)
[2022-10-03] MEDS: CLONIDINE HCL 0.1 MG TABLET PO PRN (23:02)
--- NOTE | 2022-10-03 23:07 | NUR ---
RN NOTES: 10PM BLOOD SUGAR CHECK NOT TAKE PATIENT REFUSED.
--- NOTE | 2022-10-03 23:36 | NUR ---
MACHINE RIGGER OPENING NOTES: RECEIVED PATIENT AWAKE IN BED, BED IN LOW POSITION, CALL LIGHTS WITHIN REACH, NO COMPLAIN OF PAIN AND DISCOMFORT AT THIS TIME, ON O2 INHALATION AT 2LPM SATURATING WELL, PATIENT IA A/OX3 WITH RLE WEAKNESS, NEEDS ASSISTANCE, NO IV LINE AND TELEMONITOR- PATIENT REFUSED, PATIENT KEPT CLEAN AND DRY ALL NEEDS MET WILL CONTINUE TO MONITOR.
--- NOTE | 2022-10-04 06:45 | NUR ---
E COMMERCE ANALYST CLOSING NOTES; PATIENT SLEEP IN BED COMFORTABLY, BED IN LOW POSITION, CALL LIGHTS WITHIN REACH, NOC OMPLAIN OF PAIN AND DISCOMFORT AT THIS TIME, ON O2 INAHALTION AT 2LPM SATURATING WELL, PATIENT IS NONE COMPLAINT, RREFUSED MEDICATION, BLOOD SUGAR CHECK, NO IV INSERTION NO TELE MONITOR, REMAINS STQABLE KEPT CLEAN AND DRY ALL NEEDS MET ENDORSE TO INCOMING SHIFT.
[2022-10-04 07:00] VITALS: BP 179/86
--- NOTE | 2022-10-04 07:00 | NUR ---
ACETYLENE GAS COMPRESSOR OPENING NOTES PATIENT LAYING IN BED, A/O X 3, ABLE TO MAKE NEEDS KNOWN. TOLERATING WELL ON ROOM AIR WITH NO S/S RESPIRATORY DISTRESS. NO COMPLAINTS OF PAIN OR DISCOMFORT AT THIS TIME. TOLERATING WELL ON 2 LPM O2 VIA NASAL CANNULA. PATIENT REFUSING MORNING MEDICATIONS AND VITAL SIGNS. NO TELE MONITOR OR IV ACCESS DUE TO PATIENT REFUSAL. SAFETY MEASURES IN PLACE: BED IN LOWEST LOCKED POSITION, SIDE RAILS UP X 2, CALL LIGHT WITHIN REACH. WILL CONTINUE TO MONITOR.
[2022-10-04] MEDS: BLOOD SUGAR DIAGNOSTIC 1 EACH STRIP IN SCH ×4 (07:41→22:21)
[2022-10-04] MEDS: HEPARIN SODIUM, PORCINE 5000 UNITS/1 ML VIAL SQ SCH (08:51)
[2022-10-04] MEDS: LOSARTAN POTASSIUM 50 MG TABLET PO SCH (08:51)
[2022-10-04] MEDS: LABETALOL HCL (100MG) 100 MG TABLET PO SCH ×2 (08:51→17:00)
[2022-10-04] MEDS: PANTOPRAZOLE 40 MG TABLET.DR PO SCH (08:51)
[2022-10-04] MEDS: ESCITALOPRAM OXALATE (10 MG) 10 MG TABLET PO SCH (08:51)
[2022-10-04] MEDS: BRIMONIDINE TARTRATE OPHT SOLN 5 ML BOTTLE EACHEYE SCH ×3 (08:51→17:00)
[2022-10-04] MEDS: AMLODIPINE BESYLATE 10 MG TABLET PO SCH (08:51)
--- NOTE | 2022-10-04 18:22 | NUR ---
FIELD HOCKEY COACH NOTES PATIENT REFUSING EVENING ACCUCHECK, VITAL SIGNS, AND MEDICATIONS. PATIENT ALSO REFUSED ALL OTHER MEDICATIONS DURING SHIFT.
--- NOTE | 2022-10-04 18:46 | NUR ---
[employer] ARTISTIC DIRECTOR CLOSING NOTES PATIENT LAYING IN BED, A/O X 3, ABLE TO MAKE NEEDS KNOWN. TOLERATING WELL ON ROOM AIR WITH NO S/S RESPIRATORY DISTRESS. NO COMPLAINTS OF PAIN OR DISCOMFORT AT THIS TIME. TOLERATING WELL ON 5 LPM O2 VIA NASAL CANNULA, FLOW RATE INCREASED TO 5 LPM FOR PATIENT COMFORT. PATIENT CURRENTLY UNDERGOING HEMODIALYSIS VIA ABRAN PERMACATH. PATIENT REFUSED MEDICATIONS AND VITAL SIGNS MONITORING. NO TELE MONITOR OR IV ACCESS DUE TO PATIENT REFUSAL. SAFETY MEASURES IN PLACE: BED IN LOWEST LOCKED POSITION, SIDE RAILS UP X 2, CALL LIGHT WITHIN REACH. ALL NEEDS MET. WILL ENDORSE TO STAFFING OPERATIONS MANAGER FOR JORGE.
[2022-10-04 20:00] VITALS: BP 160/77
--- NOTE | 2022-10-04 20:12 | NUR ---
received sitting on the edge of the bed alert and orientated x4 HD on going at this time
[2022-10-04] MEDS: ATORVASTATIN 40 MG TABLET PO SCH (21:44)
[2022-10-04] MEDS: LATANOPROST EYE DROP 0.005% 2.5 ML BOTTLE RIGHTEYE SCH (21:45)
[2022-10-04] MEDS: INSULIN REGULAR, HUMAN 100 UNIT/ML 3 ML VIAL SQ PRN (22:27)
[2022-10-05] VITALS: BP 164/84
--- NOTE | 2022-10-05 04:08 | NUR ---
Closing Notes:\\alert and oriented X4 HD was done and 2 liters removed he is snacking thru the night he is an attention seeker frequently asking for blankets 02 n/c (which he takes off withen minutes after being given and applied) will ask to be covered with his covers I can't do it I had a stroke" when the gentleman in the bed next to him is getting attention he YELL OUT " nurse" help me, explained to him his neighbor was as important and needed care as much as him and we don't allow YELLING. He continued toseek attetion but the next 11 hours did not YELL OUT "NURSE HELP ME!" I did commend him that was great behavior on his part and not to argue with the nurses,we are all trying our bestand to be cooperative and part of the team. slept off and on Refused is 2200 lipitor no reason given
[2022-10-05] MEDS: BLOOD SUGAR DIAGNOSTIC 1 EACH STRIP IN SCH ×5 (06:11→21:24)
[2022-10-05] MEDS: INSULIN REGULAR, HUMAN 100 UNIT/ML 3 ML VIAL SQ PRN ×4 (06:15→21:24)
[2022-10-05 07:17] LABS: BASOPHILS # (AUTO) 0.1 K/uL (0.0-0.2); BASOPHILS % (AUTO) 0.9 % (0.0-2.0); HEMATOCRIT 24 % (39-51); LYMPHOCYTES # (AUTO) 0.7 K/uL (0.8-4.8); LYMPHOCYTES % (AUTO) 11.8 % (20.0-44.0); MEAN CORPUSCULAR HGB CONC 33 g/dl (31.0-36.0); MEAN CORPUSCULAR VOLUME 84 fL (80-96); MONOCYTES # (AUTO) 0.4 K/uL (0.1-1.30); MONOCYTES % (AUTO) 6.7 % (2.0-12.0); NEUTROPHILS # (AUTO) 4.8 K/uL (1.8-8.9); NEUTROPHILS % (AUTO) 76.6 % (43.0-81.0); PLATELET COUNT (AUTO) 211 K/uL (150-450); RED BLOOD CELL COUNT(AUTO) 2.92 MIL/uL (4.5-6.0); WHITE BLOOD COUNT (AUTO) 6.3 K/uL (4.3-11.0)
[2022-10-05 07:58] LABS: CALCIUM, SERUM 8.6 mg/dL (8.5-10.1); CREATININE 3.6 mg/dL (0.6-1.3); POTASSIUM 5.8 mmol/L (3.5-5.1)
[2022-10-05 08:00] VITALS: BP 171/103
[2022-10-05 08:03] LABS: ALBUMIN 3.2 g/dL (3.4-5.0); BILIRUBIN,TOTAL 1.1 mg/dL (0.2-1.0); TOTAL PROTEIN, SERUM 7.5 g/dL (6.4-8.2)
[2022-10-05] MEDS: PANTOPRAZOLE 40 MG TABLET.DR PO SCH (08:29)
[2022-10-05] MEDS: ESCITALOPRAM OXALATE (10 MG) 10 MG TABLET PO SCH (08:30)
[2022-10-05] MEDS: LOSARTAN POTASSIUM 50 MG TABLET PO SCH (08:30)
[2022-10-05] MEDS: LABETALOL HCL (100MG) 100 MG TABLET PO SCH ×2 (08:31→18:09)
[2022-10-05] MEDS: AMLODIPINE BESYLATE 10 MG TABLET PO SCH (08:31)
[2022-10-05] MEDS: BRIMONIDINE TARTRATE OPHT SOLN 5 ML BOTTLE EACHEYE SCH ×3 (08:32→17:39)
[2022-10-05 16:00] VITALS: BP 132/80
--- NOTE | 2022-10-05 19:00 | NUR ---
RN CLOSING NOTES PATIENT IN BED, A/O X 3-4, ABLE TO MAKE NEEDS KNOWN. TOLERATING WELL ON ROOM AIR WITH NO S/S RESPIRATORY DISTRESS. NO COMPLAINTS OF PAIN OR DISCOMFORT AT THIS TIME. NO TELE MONITOR OR IV ACCESS DUE TO PATIENT REFUSAL. SAFETY MEASURES IN PLACE: BED IN LOWEST LOCKED POSITION, SIDE RAILS UP X 2, CALL LIGHT WITHIN REACH. ALL NEEDS MET. WILL ENDORSE TO FINAL INSPECTOR PAPER FOR JORGE.
--- NOTE | 2022-10-05 19:20 | NUR ---
RN opening notes Received Pt from morning nurse. Pt is sleeping in bed comfortably. Pt is alert and orientedX4. On 3 L NC. No SOB. No S/s of distress of noted. No IV sites. Safety precautions is maintained. Bed at low position, brakes locked, side rails upX2, hob elevated and call light is within reach. Will continue to monitor.
[2022-10-05 20:00] VITALS: BP 140/75
[2022-10-05] MEDS: ATORVASTATIN 40 MG TABLET PO SCH (21:24)
--- NOTE | 2022-10-05 21:24 | NUR ---
RN notes Pt refuses pm meds and insulin coverage. BS is 135. Explained risks and benefits. Pt keep refusing. Will continue to monitor.
[2022-10-05] MEDS: ACETAMINOPHEN 325 MG TABLET PO PRN (21:26)
[2022-10-05] MEDS: LATANOPROST EYE DROP 0.005% 2.5 ML BOTTLE RIGHTEYE SCH (22:00)
--- NOTE | 2022-10-06 06:30 | NUR ---
RN notes Pt refuses blood sugar check. Explained risks and benefits. Pt keep refusing.
[2022-10-06] MEDS: BLOOD SUGAR DIAGNOSTIC 1 EACH STRIP IN SCH ×4 (06:32→22:00)
[2022-10-06 08:00] VITALS: BP 178/89
[2022-10-06 09:00] VITALS: BP 178/89
[2022-10-06] MEDS: PANTOPRAZOLE 40 MG TABLET.DR PO SCH (09:00)
[2022-10-06] MEDS: ESCITALOPRAM OXALATE (10 MG) 10 MG TABLET PO SCH (09:00)
[2022-10-06] MEDS: BRIMONIDINE TARTRATE OPHT SOLN 5 ML BOTTLE EACHEYE SCH ×3 (09:00→17:00)
[2022-10-06] MEDS: LOSARTAN POTASSIUM 50 MG TABLET PO SCH (09:23)
[2022-10-06] MEDS: AMLODIPINE BESYLATE 10 MG TABLET PO SCH (09:23)
[2022-10-06] MEDS: LABETALOL HCL (100MG) 100 MG TABLET PO SCH ×2 (09:23→17:00)
--- NOTE | 2022-10-06 11:41 | NUR ---
RN NOTE PT REFUSED ACCU CHECK. PT EDUCATED. PT UNCOOPERATIVE
--- NOTE | 2022-10-06 11:49 | NUR ---
RN closing notes Pt is sleeping in bed comfortably. Pt is alert and orientedX4. On 3 L NC. No SOB. No S/s of distress of noted. No IV sites. Kept Pt clean, dry and comfortable. Safety precautions is maintained. Bed at low position, brakes locked, side rails upX2, hob elevated and call light is within reach. Will endorse to am nurse for JORGE.
[2022-10-06 16:00] VITALS: BP 139/74
--- NOTE | 2022-10-06 17:02 | NUR ---
RN NOTE PT REFUSING VITAL SIGNS. PT EDUCATED ON THE IMPORTANCE OF MONITORING HIS BLOOD PRESSURE HE HAS HYPERTENSION. PT NON-COOPERATIVE, REFUSING VITAL SIGNS AND MEDICATIONS.
--- NOTE | 2022-10-06 18:55 | NUR ---
RN CLOSING NOTE PATIENT IS SLEEPING IN BED. PT IS A/OX4. NO S/S OF PAIN. ON RA, BREATHING EVEN AND NON LABORED. PATIENT IS UNCOOPERATIVE. NO IV ACCESS. SAFETY MEASURES IMPLEMENTED. ALL NEEDS MET AND ATTENDED. ALL ORDERS CARRIED OUT. WILL ENDORSED TO LOAN FUNDER NURSE FOR JORGE.
--- NOTE | 2022-10-06 19:56 | NUR ---
RN OPENING NOTE PATIENT ASLEEP IN BED. A/OX4. NO S/S OF DISTRESS, BREATHING WITHOUT DIFFICULTY ON ROOM AIR. PATIENT REFUSES IV ACCESS AT THIS TIME; DAY NURSE NOTED CONTINUAL NON-COMPLIANCE W/ TREATMENT PLAN. SAFETY MEASURES IN PLACE: BED LOCKED AND AT LOWEST POSITION, RAILS UP X2, CALL CASTELLANOS WITHIN REACH. WILL CONTINUE TO MONITOR PATIENT.
[2022-10-06 20:00] VITALS: BP 145/70
[2022-10-06] MEDS: ATORVASTATIN 40 MG TABLET PO SCH (22:00)
[2022-10-06] MEDS: LATANOPROST EYE DROP 0.005% 2.5 ML BOTTLE RIGHTEYE SCH (22:00)
--- NOTE | 2022-10-07 06:49 | NUR ---
RN OPENING NOTE PATIENT ASLEEP IN BED. A/OX4. NO S/S OF DISTRESS, BREATHING WITHOUT DIFFICULTY ON ROOM AIR. PATIENT CONTINUES TO REFUSE IV ACCESS/INSERTION; PATIENT HAS ALSO REFUSED ACCU CHECKS AND MEDICATIONS. SAFETY MEASURES IN PLACE: BED LOCKED AND AT LOWEST POSITION, RAILS UP X2, CALL CASTELLANOS WITHIN REACH. WILL CONTINUE TO MONITOR PATIENT. Addendum: 10/07/22 at 0655 by MARIANA BHATIA RN CORRECTION: CLOSING NOTE [...] WILL ENDORSE TO NEXT SHIFT FOR JORGE.
--- NOTE | 2022-10-07 07:00 | NUR ---
MS RN OPENING NOTES: RECEIVED PATIENT IN BED AWAKE, ALERT AND ORIENTED X 4 . NO SOB OR CARDIAC DISTRESS NOTED, DENIES PAIN AT THIS TIME. NO IV ACCESS AND MD IS AWARE, PERMA CATH ON RIGHT CHEST WALL PATENT AND DRESSING INTACT. SAFETY MEASURES MAINTAINED: BED LOCKED AND IN LOWEST POSITION, SIDE RAILS UP X 2, CALL LIGHT AND BED SIDE TABLE IN EASY REACH AND WILL MONITOR PT ACCORDINGLY.
[2022-10-07] MEDS: BLOOD SUGAR DIAGNOSTIC 1 EACH STRIP IN SCH ×4 (07:01→21:33)
[2022-10-07] MEDS: INSULIN REGULAR, HUMAN 100 UNIT/ML 3 ML VIAL SQ PRN (07:01)
[2022-10-07] MEDS: BRIMONIDINE TARTRATE OPHT SOLN 5 ML BOTTLE EACHEYE SCH ×3 (09:00→17:00)
[2022-10-07] MEDS: ESCITALOPRAM OXALATE (10 MG) 10 MG TABLET PO SCH (09:00)
[2022-10-07] MEDS: LABETALOL HCL (100MG) 100 MG TABLET PO SCH ×2 (09:00→17:00)
[2022-10-07] MEDS: PANTOPRAZOLE 40 MG TABLET.DR PO SCH (09:00)
[2022-10-07] MEDS: LOSARTAN POTASSIUM 50 MG TABLET PO SCH (09:00)
[2022-10-07] MEDS: AMLODIPINE BESYLATE 10 MG TABLET PO SCH (09:00)
--- NOTE | 2022-10-07 09:00 | NUR ---
RN NOTES: PATIENT REFUSED VITAL SIGN X2 AND OFFERED MORNING MEDS AND PATIENT REFUSED.
[2022-10-07 16:00] VITALS: BP 164/85
--- NOTE | 2022-10-07 17:52 | NUR ---
RN NOTES: PATIENT STARTED HD, PT HAS NO SOB OR CARDIAC DISTRESS. VS WNL.
--- NOTE | 2022-10-07 19:10 | NUR ---
MS RN CLOSING NOTES: PATIENT IN BED WAKE, ONGOING HD. PT COMFORTABLE. NO SOB OR CARDIAC DISTRESS NOTED, DENIES ANY PAIN AT THIS TIME. PATIENT APPEARED WEAK AND PALE. PATIENT REFUSED MEDS,VS AND BS CHECK MD IS AWARE. NO IV ACCESS. PT HAS RCW PERMA CATH PATENT AND WITH DRY DRESSING INTACT. SAFETY MEASURES MAINTAINED:BED LOCKED AND IN LOWEST POSITION, SIDE RAILS UP X 2. CALL LIGHT IN EASY REACH AND WILL ENDORSE TO REPULPING SUPERVISOR RN FOR CONTINUITY OF CARE.
--- NOTE | 2022-10-07 19:30 | NUR ---
RN OPENING NOTE PATIENT AWAKE IN BED. A/OX4. NO S/S OF DISTRESS, BREATHING WITHOUT DIFFICULTY ON ROOM AIR. NO IV ACCESS STILL PATIENT, EVEN WITH CONSISTENT ENCOURAGEMENT, HAS REFUSED IV REINSERTION. SAFETY MEASURES IN PLACE: BED LOCKED AND AT LOWEST POSITION, RAILS UP X2, CALL CASTELLANOS WITHIN REACH. WILL CONTINUE TO MONITOR PATIENT.
[2022-10-07 20:00] VITALS: BP 166/79
[2022-10-07] MEDS: ATORVASTATIN 40 MG TABLET PO SCH (21:33)
[2022-10-07] MEDS: LATANOPROST EYE DROP 0.005% 2.5 ML BOTTLE RIGHTEYE SCH (21:33)
[2022-10-08] VITALS: BP 160/77
[2022-10-08] MEDS: BLOOD SUGAR DIAGNOSTIC 1 EACH STRIP IN SCH ×4 (06:34→21:42)
[2022-10-08] MEDS: INSULIN REGULAR, HUMAN 100 UNIT/ML 3 ML VIAL SQ PRN ×3 (06:35→21:56)
--- NOTE | 2022-10-08 07:01 | NUR ---
RN CLOSING NOTE PATIENT AWAKE IN BED. A/OX4. NO S/S OF DISTRESS, BREATHING WITHOUT DIFFICULTY ON ROOM AIR. RCW PERMACATH INTACT, NO DISLODGEMENT OR BLEEDING PRESENT; PATIENT STILL REFUSES IV ACCESS INSERTION. SAFETY MEASURES IN PLACE: BED LOCKED AND AT LOWEST POSITION, RAILS UP X2, CALL CASTELLANOS WITHIN REACH. WILL ENDORSE TO NEXT SHIFT FOR JORGE.
--- NOTE | 2022-10-08 07:07 | NUR ---
MS RN OPENING NOTES RECEIVED PATIENT AWAKE IN BED, A/Ox4, ABLE TO VERBALIZE NEEDS. ON ROOM AIR, NO S/S OF RESPIRATORY DISTRESS. NO IV ACCESS, PATIENT REFUSING. PATIENT RCW HE PERMACATH. SKIN INTACT. SAFETY MEASURES IN PLACE: BED LOCKED AND IN LOWEST POSITION, SIDE RAILS UPx3, HOB ELEVATED, CALL LIGHT WITHIN REACH. WILL CONTINUE TO MONITOR.
[2022-10-08 08:00] VITALS: BP 167/112
[2022-10-08] MEDS: PANTOPRAZOLE 40 MG TABLET.DR PO SCH (09:00)
[2022-10-08] MEDS: ESCITALOPRAM OXALATE (10 MG) 10 MG TABLET PO SCH (09:00)
[2022-10-08] MEDS: LABETALOL HCL (100MG) 100 MG TABLET PO SCH ×2 (09:49→17:46)
[2022-10-08] MEDS: AMLODIPINE BESYLATE 10 MG TABLET PO SCH (09:49)
[2022-10-08] MEDS: BRIMONIDINE TARTRATE OPHT SOLN 5 ML BOTTLE EACHEYE SCH ×3 (09:50→16:55)
[2022-10-08] MEDS: LOSARTAN POTASSIUM 50 MG TABLET PO SCH (09:50)
--- NOTE | 2022-10-08 10:00 | NUR ---
RN NOTES PATIENT REFUSED NON BLOOD PRESSURE MEDICATION. WILL CONTINUE TO MONITOR. PATIENT ALSO REFUSED LABS TO BE DRAWN. MD AWARE OF BEHAVIOR.
[2022-10-08 16:00] VITALS: BP 180/126
[2022-10-08] MEDS: CLONIDINE HCL 0.1 MG TABLET PO PRN (17:46)
--- NOTE | 2022-10-08 18:57 | NUR ---
MS RN CLOSING NOTES PATIENT AWAKE IN BED, A/Ox4, ABLE TO VERBALIZE NEEDS. ON ROOM AIR, NO S/S OF RESPIRATORY DISTRESS. NO IV ACCESS, PATIENT REFUSING. PATIENT RCW HE PERMACATH. SKIN INTACT. GIVEN CLONIDINE PRN, DUE TO PATIENT BP BEING GREATER THAN 160 SBP. SAFETY MEASURES MAINTAINED: BED LOCKED AND IN LOWEST POSITION, SIDE RAILS UPx3, HOB ELEVATED, CALL LIGHT WITHIN REACH. WILL ENDORSE TO NEXT SHIFT ANY JORGE.
--- NOTE | 2022-10-08 19:30 | NUR ---
RN OPENING NOTE PATIENT IN BED, AWAKE. PATIENT IS ABLE TO MAKE NEEDS KNOWN. A/O X 4. PATIENT IS ON RA, TOLERATING WELL. PATIENT DOES NOT REPORT ANY PAIN OR DISCOMFORT AT THIS TIME. NOTED TO HAVE NO IV ACCESS, WITH RCW PERMACATH FOR DIALYSIS. PT NOT IN ANY APPARENT DISRESS. SAFETY MEASURES IN PLACE: BED LOCKED AND IN LOWEST POSITION, CALL LIGHT WITHIN REACH, SIDE RAILS UP. WILL MONITOR PATIENT CLOSELY.
[2022-10-08] MEDS: ATORVASTATIN 40 MG TABLET PO SCH (21:41)
[2022-10-08] MEDS: LATANOPROST EYE DROP 0.005% 2.5 ML BOTTLE RIGHTEYE SCH (21:50)
--- NOTE | 2022-10-08 22:00 | NUR ---
RN NOTE PATIENT'S BLOOD SUGAR REPEATED X 3. FIRST WAS 529 MG/DL, PER PATIENT WAS NOT CORRECT AND HE WOULD HAVE FELT IT IF IT WAS EXTREMELY HIGH, REPEATED BLOOD GLUCOSE CHECK AND CAME UP TO BE 255 MG/DL, AND LAST REPEAT WAS 271 MG/DL. CHARGE NURSE AWARE. PATIENT GIVEN 6 UNITS OF REGULAR INSULIN FOR COVERAGE.
[2022-10-09 00:46] VITALS: BP 113/82
[2022-10-09] MEDS: INSULIN REGULAR, HUMAN 100 UNIT/ML 3 ML VIAL SQ PRN (06:35)
[2022-10-09] MEDS: BLOOD SUGAR DIAGNOSTIC 1 EACH STRIP IN SCH ×4 (06:36→22:18)
--- NOTE | 2022-10-09 07:07 | NUR ---
MS RN OPENING NOTES RECEIVED PATIENT SLEEPING IN BED, A/Ox4, ABLE TO VERBALIZE NEEDS. ON ROOM AIR, NO S/S OF RESPIRATORY DISTRESS. NO IV ACCESS, PATIENT REFUSING. PATIENT RCW HE PERMACATH. SKIN INTACT. SAFETY MEASURES IN PLACE: BED LOCKED AND IN LOWEST POSITION, SIDE RAILS UPx3, HOB ELEVATED, CALL LIGHT WITHIN REACH. WILL CONTINUE TO MONITOR.
--- NOTE | 2022-10-09 07:25 | NUR ---
RN CLOSING NOTE PATIENT SITTING AT THE EDGE OF THE BED, PATIENT IS ABLE TO MAKE NEEDS KNOWN. A/O X 4. PATIENT IS ON RA, TOLERATING WELL. PATIENT DOES NOT REPORT ANY PAIN OR DISCOMFORT AT THIS TIME. NOTED TO HAVE NO IV ACCESS, WITH RCW PERMACATH FOR DIALYSIS. PT NOT IN ANY APPARENT DISTRESS. REFUSED 3 UNITS OF INSULIN COVERAGE FOR BS 157 MG/DL, STATES THAT HE "DOESN'T NEED IT". SAFETY MEASURES IN PLACE: BED LOCKED AND IN LOWEST POSITION, CALL LIGHT WITHIN REACH, SIDE RAILS UP. ALL NEEDS MET AND ATTENDED. ALL ORDERS CARRIED OUT. ENDORSED TO DAY SHIFT NURSE FOR JORGE.
[2022-10-09 08:00] VITALS: BP 156/79
[2022-10-09] MEDS: ESCITALOPRAM OXALATE (10 MG) 10 MG TABLET PO SCH (09:00)
[2022-10-09] MEDS: AMLODIPINE BESYLATE 10 MG TABLET PO SCH (09:00)
[2022-10-09] MEDS: PANTOPRAZOLE 40 MG TABLET.DR PO SCH (09:00)
[2022-10-09] MEDS: BRIMONIDINE TARTRATE OPHT SOLN 5 ML BOTTLE EACHEYE SCH ×3 (09:00→17:00)
[2022-10-09] MEDS: LABETALOL HCL (100MG) 100 MG TABLET PO SCH ×2 (09:00→17:00)
[2022-10-09] MEDS: LOSARTAN POTASSIUM 50 MG TABLET PO SCH (09:00)
--- NOTE | 2022-10-09 09:30 | NUR ---
RN NOTES PATIENT REFUSED ALL MORNING MEDICATION, STATED THAT HE JUST WANTS TO SLEEP. ATTEMPTED x3. WILL CONTINUE TO MONITOR.
--- NOTE | 2022-10-09 18:47 | NUR ---
MS RN CLOSING NOTES RECEIVED PATIENT AWAKE IN BED, A/Ox4, ABLE TO VERBALIZE NEEDS. STABLE ON ROOM AIR, NO S/S OF RESPIRATORY DISTRESS. NO IV ACCESS, PATIENT REFUSING. PATIENT RCW HE PERMACATH. SKIN INTACT. SAFETY MEASURES MAINTAINED: BED LOCKED AND IN LOWEST POSITION, SIDE RAILS UPx3, HOB ELEVATED, CALL LIGHT WITHIN REACH. WILL ENDORSE TO NEXT SHIFT ANY JORGE.
--- NOTE | 2022-10-09 19:30 | NUR ---
RN OPENING NOTE PATIENT IN BED, AWAKE. PATIENT IS ABLE TO MAKE NEEDS KNOWN. A/O X 4. PATIENT IS ON RA, TOLERATING WELL. PATIENT DOES NOT REPORT ANY PAIN OR DISCOMFORT AT THIS TIME. NOTED TO HAVE NO IV ACCESS, WITH RCW PERMACATH FOR DIALYSIS. MART JAVA PROJECT MANAGER ABOUT TO START DIALYSIS, REQUESTED NEW LABS FOR PATIENT. PT NOT IN ANY APPARENT DISRESS. SAFETY MEASURES IN PLACE: BED LOCKED AND IN LOWEST POSITION, CALL LIGHT WITHIN REACH, SIDE RAILS UP. WILL MONITOR PATIENT CLOSELY.
--- NOTE | 2022-10-09 20:00 | NUR ---
PATIENT REFUSED TO HAVE HIS VITAL SIGNS TAKEN. EDUCATION RE: IMPORTANCE OF TAKING HIS VITAL SIGNS. STILL REFUSES.
[2022-10-09 20:56] LABS: CALCIUM, SERUM 8.2 mg/dL (8.5-10.1); CREATININE 4.8 mg/dL (0.6-1.3)
[2022-10-09 21:01] LABS: BILIRUBIN,TOTAL 0.6 mg/dL (0.2-1.0); TOTAL PROTEIN, SERUM 6.9 g/dL (6.4-8.2)
[2022-10-09 21:02] LABS: POTASSIUM 6.4 mmol/L (3.5-5.1)
[2022-10-09] MEDS: LATANOPROST EYE DROP 0.005% 2.5 ML BOTTLE RIGHTEYE SCH (22:00)
[2022-10-09] MEDS: ATORVASTATIN 40 MG TABLET PO SCH (22:00)
--- NOTE | 2022-10-09 22:10 | NUR ---
MART MAYBERRY FINISHED PATIENT'S DIALYSIS. 2 L OUTPUT. PATIENT STABLE.
--- NOTE | 2022-10-09 22:30 | NUR ---
PATIENT REFUSED ATORVASTATIN AND HIS LATANOPROST STATES THAT HE DOES NOT NEED THOSE MEDICATIONS.
--- NOTE | 2022-10-10 07:01 | NUR ---
RN CLOSING NOTE PATIENT LAYING ON THE BED. PATIENT IS ABLE TO MAKE NEEDS KNOWN. A/O X 4. PATIENT IS ON RA, TOLERATING WELL. PATIENT DOES NOT REPORT ANY PAIN OR DISCOMFORT AT THIS TIME. STILL REFUSES IV ACCESS, WITH RCW PERMACATH FOR DIALYSIS. PT NOT IN ANY APPARENT DISTRESS. BS 110 MG/DL, SNACKS PROVIDED. SAFETY MEASURES IN PLACE: BED LOCKED AND IN LOWEST POSITION, CALL LIGHT WITHIN REACH, SIDE RAILS UP. ALL NEEDS MET AND ATTENDED. ALL ORDERS CARRIED OUT. ENDORSED TO DAY SHIFT NURSE FOR JORGE.
[2022-10-10] MEDS: BLOOD SUGAR DIAGNOSTIC 1 EACH STRIP IN SCH ×4 (07:32→21:37)
--- NOTE | 2022-10-10 07:39 | NUR ---
MS RN OPENING NOTES RECEIVED PATIENT SLEEPING IN BED,EASILY AROUSABLE. A/Ox4, ABLE TO VERBALIZE NEEDS. ON ROOM AIR, NO S/S OF RESPIRATORY DISTRESS. NO IV ACCESS, PATIENT REFUSING. PATIENT RCW HD PERMACATH. SKIN INTACT. SAFETY MEASURES IN PLACE: BED LOCKED AND IN LOWEST POSITION, SIDE RAILS UPx3, HOB ELEVATED, CALL LIGHT WITHIN REACH. WILL CONTINUE TO MONITOR.
[2022-10-10] MEDS: LOSARTAN POTASSIUM 50 MG TABLET PO SCH (08:24)
[2022-10-10] MEDS: BRIMONIDINE TARTRATE OPHT SOLN 5 ML BOTTLE EACHEYE SCH ×3 (08:24→16:41)
[2022-10-10] MEDS: ESCITALOPRAM OXALATE (10 MG) 10 MG TABLET PO SCH (08:26)
[2022-10-10] MEDS: LABETALOL HCL (100MG) 100 MG TABLET PO SCH ×2 (08:26→16:42)
[2022-10-10] MEDS: PANTOPRAZOLE 40 MG TABLET.DR PO SCH (08:27)
[2022-10-10] MEDS: AMLODIPINE BESYLATE 10 MG TABLET PO SCH (08:27)
[2022-10-10] MEDS ORDERED: SODIUM POLYSTYRENE SULFONATE 15 G/60 ML BOTTLE PO ONE (09:00)
[2022-10-10] MEDS ORDERED: INSULIN REGULAR, HUMAN 100 UNIT/ML 3 ML VIAL SQ ONE (09:00)
[2022-10-10] MEDS ORDERED: DEXTROSE 50%-WATER 50 ML DISP.SYRIN IVP ONE (09:00)
--- NOTE | 2022-10-10 09:20 | NUR ---
RN NOTE- K WAS 6.[address] PATEL ORDERED RX FOR K. , NOTIFIED HIM OF YESTERDAYS LAB RESULTS. ORDERED STAT CHEM PANEL. WILL ADVISE OF RESULTS AND TX ACCORDINGLY
[2022-10-10] MEDS ORDERED: CALCIUM GLUCONATE IV ONE (10:00)
[2022-10-10] MEDS ORDERED: NS 0.9% IV ONE (10:00)
--- NOTE | 2022-10-10 10:30 | NUR ---
RN NOTE- PT REFUSING IV INSERTION. CANNOT GIVE CA. NOTIFIED
[2022-10-10 11:19] LABS: CALCIUM, SERUM 8.1 mg/dL (8.5-10.1); CREATININE 3.4 mg/dL (0.6-1.3); POTASSIUM 5.1 mmol/L (3.5-5.1)
[2022-10-10 11:25] LABS: BILIRUBIN,TOTAL 0.6 mg/dL (0.2-1.0); TOTAL PROTEIN, SERUM 7.1 g/dL (6.4-8.2)
--- NOTE | 2022-10-10 11:36 | NUR ---
RN NOTE- K 5.1, DR BARRY CANCELLED KAYEXELATE, INSULIN, D50 ORDERS. BMP IN AM
[2022-10-10 12:00] VITALS: BP 101/56
[2022-10-10] MEDS: INSULIN REGULAR, HUMAN 100 UNIT/ML 3 ML VIAL SQ PRN ×2 (12:16→16:46)
[2022-10-10] MEDS: ACETAMINOPHEN 325 MG TABLET PO PRN (12:16)
[2022-10-10] MEDS: HYDROCODONE/APAP 5/325MG TABLET PO PRN (14:26)
[2022-10-10 16:00] VITALS: BP 101/56
--- NOTE | 2022-10-10 18:55 | NUR ---
RN CLOSING NOTES PT IN BED A/Ox4, NO REAL CHANGES THIS SHIFT, FOR HD TOMORROW MORNING AT 0800. ABLE TO VERBALIZE NEEDS. ON ROOM AIR, NO S/S OF RESPIRATORY DISTRESS. NO IV ACCESS, PATIENT REFUSING. PATIENT RCW HD PERMACATH. SKIN INTACT. SAFETY MEASURES IN PLACE: BED LOCKED AND IN LOWEST POSITION, SIDE RAILS UPx3, HOB ELEVATED, CALL LIGHT WITHIN REACH. WILL CONTINUE TO MONITOR.
--- NOTE | 2022-10-10 19:31 | NUR ---
MS RN OPENING NOTES RECEIVED PATIENT SLEEPING IN BED,EASILY AROUSED,A/Ox4, ABLE TO VERBALIZE NEEDS. ON ROOM AIR, NO SIGN SOB/DISTRESS NOTED,NO IV ACCESS, PATIENT REFUSING. PATIENT RCW HD PERMACATH. INTACT AND PATENT,SAFETY MEASURES IN PLACE: BED LOCKED AND IN LOWEST POSITION, SIDE RAILS UPx3, HOB ELEVATED, CALL LIGHT WITHIN REACH. WILL CONTINUE TO MONITOR.
[2022-10-10 20:00] VITALS: BP 115/63
[2022-10-10] MEDS: ATORVASTATIN 40 MG TABLET PO SCH (21:26)
[2022-10-10] MEDS: LATANOPROST EYE DROP 0.005% 2.5 ML BOTTLE RIGHTEYE SCH (21:37)
--- NOTE | 2022-10-10 21:39 | NUR ---
RN NOTES; PATIENT REFUSED BS CHECK AND XALATAN EYE DROPS,EXPLAINED BENEFITS 3X STILL REFUSED.
--- NOTE | 2022-10-11 06:17 | NUR ---
MS RN CLOSING NOTES; PATIENT SLEEPING IN BED,EASILY TO AROUSED,A/Ox4, ABLE TO VERBALIZE NEEDS. ON ROOM AIR, NO SIGN SOB/DISTRESS NOTED,NO COMPLAIN OF PAIN/DISCOMFORT DURING SHIFT,DUE MEDS GIVEN ORDER,ALL NEEDS ATTENDED,NO IV ACCESS, PATIENT REFUSING. PATIENT RCW HD PERMACATH. INTACT AND PATENT,SAFETY MEASURES IN PLACE: BED LOCKED AND IN LOWEST POSITION, SIDE RAILS UPx3, HOB ELEVATED, CALL LIGHT WITHIN REACH. WILL ENDORSED TO NEXT SHIFT.
--- NOTE | 2022-10-11 06:58 | NUR ---
rn notes; patient refused BS check.
[2022-10-11 07:00] VITALS: BP 153/66
[2022-10-11] MEDS: BLOOD SUGAR DIAGNOSTIC 1 EACH STRIP IN SCH ×4 (07:30→21:51)
--- NOTE | 2022-10-11 08:11 | NUR ---
RN OPENING NOTE- PT IN BED A/Ox4, FOR HD TODAY IN AFTERNOON PER HD RN, ABLE TO VERBALIZE NEEDS. ON ROOM AIR, NO S/S OF RESPIRATORY DISTRESS. NO IV ACCESS, PATIENT REFUSING. PATIENT RCW HD PERMACATH. SKIN INTACT. SAFETY MEASURES IN PLACE: BED LOCKED AND IN LOWEST POSITION, SIDE RAILS UPx3, HOB ELEVATED, CALL LIGHT WITHIN REACH. WILL CONTINUE TO MONITOR / ASSIST
[2022-10-11] MEDS: AMLODIPINE BESYLATE 10 MG TABLET PO SCH ×2 (09:00→09:08)
[2022-10-11] MEDS: PANTOPRAZOLE 40 MG TABLET.DR PO SCH ×2 (09:00→09:06)
[2022-10-11] MEDS: ESCITALOPRAM OXALATE (10 MG) 10 MG TABLET PO SCH ×2 (09:00→09:08)
[2022-10-11] MEDS: LABETALOL HCL (100MG) 100 MG TABLET PO SCH ×3 (09:00→16:33)
[2022-10-11] MEDS: LOSARTAN POTASSIUM 50 MG TABLET PO SCH ×2 (09:00→09:07)
[2022-10-11] MEDS: BRIMONIDINE TARTRATE OPHT SOLN 5 ML BOTTLE EACHEYE SCH ×4 (09:00→16:33)
[2022-10-11] MEDS: INSULIN REGULAR, HUMAN 100 UNIT/ML 3 ML VIAL SQ PRN (12:35)
[2022-10-11] MEDS ORDERED: LORAZEPAM 1 MG TABLET PO PRN ×2 (15:30→18:00)
--- NOTE | 2022-10-11 15:39 | NUR ---
RN NOTE- ANXIOUS, YELLING. DR BARRY ORDERED ATIVAN1 MG PO [id number]. ADMINISTERED
--- NOTE | 2022-10-11 18:33 | NUR ---
RN CLOSING NOTE- PT IN BED A/Ox4, OPPOSING CARE AND MEDS ALL DAY, STATING 'i'M BLIND" EVALUATED. PT VISION SEEMS WNL TO THIS RN. TRACKING VISION WNL. FOR HD THIS EVENING. LABS TO BE COMPLETED BY HD RN. PT HAD REFUSED. ABLE TO VERBALIZE NEEDS. ON ROOM AIR, NO S/S OF RESPIRATORY DISTRESS. NO IV ACCESS, PATIENT REFUSING. PATIENT RCW HD PERMACATH. SKIN INTACT. SAFETY MEASURES IN PLACE: BED LOCKED AND IN LOWEST POSITION, SIDE RAILS UPx3, HOB ELEVATED, CALL LIGHT WITHIN REACH. WILL CONTINUE TO MONITOR / ASSIST
[2022-10-11] MEDS: HYDROCODONE/APAP 5/325MG TABLET PO PRN (18:41)
--- NOTE | 2022-10-11 19:30 | NUR ---
MS RN OPENING NOTE RECEIVED PATIENT IN BED ASLEEP BUT EASY TO AROUSE AND RESPONSIVE. AFEBRILE AND NOT IN ANY FORM OF ACUTE DISTRESS. BREATHING EVEN AND NON LABORED. NO C/O PAIN OR DISCOMFORT. WITH PERMA CATH ON R SIDE FOR HD. SAFETY MEASURES IN PLACE. KEPT BED IN LOCKED AND IN LOW POSITION. SIDE RAILS UP X2. ADVISED TO USE THE CALL LIGHT WHEN IN NEED OF ASSISTANCE.
[2022-10-11] MEDS: LATANOPROST EYE DROP 0.005% 2.5 ML BOTTLE RIGHTEYE SCH (21:08)
[2022-10-11] MEDS: ATORVASTATIN 40 MG TABLET PO SCH (21:51)
--- NOTE | 2022-10-11 21:52 | NUR ---
MS RN NOTE PATIENT AGREED TO BE CHECKED FOR BLOOD GLUCOSE 133 BUT REFUSED INSULIN COVERAGE.CURRENTLY ON HEMODIALYSIS.
[2022-10-11 21:53] LABS: BILIRUBIN,TOTAL 0.6 mg/dL (0.2-1.0)
[2022-10-11 21:54] LABS: ALBUMIN 2.9 g/dL (3.4-5.0); CALCIUM, SERUM 8.1 mg/dL (8.5-10.1); CREATININE 4.2 mg/dL (0.6-1.3); POTASSIUM 4.8 mmol/L (3.5-5.1); TOTAL PROTEIN, SERUM 6.8 g/dL (6.4-8.2)
--- NOTE | 2022-10-11 23:00 | NUR ---
MS RN NOTE PATIENT COMPLETED DIALYSIS AND PER DIALYSIS NURSE, 2L WAS REMOVED. PATIENT TOLERATED THE PROCEDURE WELL. VITALS WNL.
--- NOTE | 2022-10-12 06:30 | NUR ---
MS RN CLOSING NOTE PATIENT IN BED ASLEEP BUT EASY TO AROUSE AND RESPONSIVE. AFEBRILE AND NOT IN ANY FORM OF ACUTE DISTRESS. BREATHING EVEN AND NON LABORED. NO C/O PAIN OR DISCOMFORT THROUGHOUT THE SHIFT. WITH PERMA CATH ON R SIDE FOR HD. MONITORED FOR ANY S/SX. OF HYPO/HYPERGLYCEMIA. MEDICATED ORDERED. REFUSED BLOOD SUGAR CHECK THIS MORNING DESPITE EXPLAINING RISK AND CONSEQUENCES. SAFETY MEASURES IN PLACE. KEPT BED IN LOCKED AND IN LOW POSITION. SIDE RAILS UP X2. ADVISED TO USE THE CALL LIGHT WHEN IN NEED OF ASSISTANCE. ALL NURSING NEEDS ATTENDED. ENDORSED TO INCOMING SHIFT FOR CONTINUITY OF CARE.
[2022-10-12] MEDS: BLOOD SUGAR DIAGNOSTIC 1 EACH STRIP IN SCH ×4 (06:55→21:08)
--- NOTE | 2022-10-12 07:00 | NUR ---
MS RN OPENING NOTE PATIENT LAYING IN BED, A/O X 3, ABLE TO MAKE NEEDS KNOWN, TOLERATING WELL ON ROOM AIR WITH NO S/S RESPIRATORY DISTRESS. NO COMPLAINTS OF PAIN OR DISCOMFORT AT THIS TIME. NO IV ACCESS AT THIS TIME, MD AWARE. REFUSED ACCUCHECK THIS MORNING. SAFETY MEASURES IN PLACE: BED IN LOWEST LOCKED POSITION, SIDE RAILS UP X 2, CALL LIGHT WITHIN REACH. WILL CONTINUE TO MONITOR.
[2022-10-12] MEDS: BRIMONIDINE TARTRATE OPHT SOLN 5 ML BOTTLE EACHEYE SCH ×3 (08:14→17:00)
[2022-10-12] MEDS: LOSARTAN POTASSIUM 50 MG TABLET PO SCH (08:18)
[2022-10-12] MEDS: ESCITALOPRAM OXALATE (10 MG) 10 MG TABLET PO SCH (08:18)
[2022-10-12] MEDS: AMLODIPINE BESYLATE 10 MG TABLET PO SCH (08:19)
[2022-10-12] MEDS: LABETALOL HCL (100MG) 100 MG TABLET PO SCH ×2 (08:19→17:00)
[2022-10-12] MEDS: PANTOPRAZOLE 40 MG TABLET.DR PO SCH (08:19)
[2022-10-12 16:00] VITALS: BP 139/72
--- NOTE | 2022-10-12 18:59 | NUR ---
MS RN CLOSING NOTE PATIENT LAYING IN BED, A/O X 3, ABLE TO MAKE NEEDS KNOWN, TOLERATING WELL ON 2 LPM O2 VIA CANNULA FOR COMFORT. NO COMPLAINTS OF PAIN OR DISCOMFORT AT THIS TIME. NO IV ACCESS AT THIS TIME, MD AWARE. REFUSED ALL ACCUCHECKS, VITAL SIGNS MONITORING, LAB DRAWS, AND MOST MEDICATIONS DURING SHIFT. PATIENT WAS INFORMED OF RISKS OF REFUSAL AND BENEFITS OF ALLOWING THESE PROCEDURES BUT REFUSED X 3. MD AWARE. SAFETY MEASURES IN PLACE: BED IN LOWEST LOCKED POSITION, SIDE RAILS UP X 2, CALL LIGHT WITHIN REACH. ALL NEEDS MET. WILL ENDORSE TO IRRIGATION SPECIALIST FOR JORGE.
--- NOTE | 2022-10-12 19:50 | NUR ---
MS RN OPENING NOTE RECEIVED PATIENT IN BED AWAKE. PT A/O X4, ABLE TO MAKE NEEDS KNOWN. AFEBRILE AND NOT IN ANY FORM OF ACUTE DISTRESS. BREATHING EVEN AND NON LABORED. NO C/O PAIN OR DISCOMFORT AT THIS TIME. PERMA CATH TO RIGHT SIDE FOR HEMODIALYSIS. SAFETY MEASURES IN PLACE. BED LOCKED, IN LOW POSITION. SIDE RAILS UP X2, CALL LIGHT WITHIN REACH. WILL CONTINUE TO MONITOR PT.
[2022-10-12] MEDS: ATORVASTATIN 40 MG TABLET PO SCH (21:07)
[2022-10-12] MEDS: HYDROCODONE/APAP 5/325MG TABLET PO PRN (21:08)
[2022-10-12] MEDS: LATANOPROST EYE DROP 0.005% 2.5 ML BOTTLE RIGHTEYE SCH (22:00)
[2022-10-12] MEDS: INSULIN REGULAR, HUMAN 100 UNIT/ML 3 ML VIAL SQ PRN (22:13)
--- NOTE | 2022-10-13 07:00 | NUR ---
MS RN CLOSING NOTE PATIENT LAYING IN BED, SLEEPING. A/O X 3, ABLE TO MAKE NEEDS KNOWN, TOLERATING WELL ON 2 LPM O2 VIA CANNULA. NO COMPLAINT OF PAIN OR DISCOMFORT AT THIS TIME. NO IV ACCESS AT THIS TIME, MD AWARE. REFUSED ALL ACCUCHECK THIS AM. PATIENT WAS INFORMED OF RISKS OF REFUSAL OF BS CHECK. AWARE. SAFETY MEASURES IN PLACE: BED IN LOWEST LOCKED POSITION, SIDE RAILS UP X 2, CALL LIGHT WITHIN REACH. WILL ENDORSE TO AM SHIFT FOR JORGE.
--- NOTE | 2022-10-13 07:21 | NUR ---
MS RN OPENING NOTE PATIENT LAYING IN BED, A/O X 3, ABLE TO MAKE NEEDS KNOWN, TOLERATING WELL ON ROOM AIR WITH NO S/S RESPIRATORY DISTRESS. NO COMPLAINTS OF PAIN OR DISCOMFORT AT THIS TIME. RCW PERMACATH CLEAN AND INTACT. SAFETY MEASURES IN PLACE: BED IN LOWEST LOCKED POSITION, SIDE RAILS UP X 2, CALL LIGHT WITHIN REACH. WILL CONTINUE TO MONITOR.
[2022-10-13] MEDS: BLOOD SUGAR DIAGNOSTIC 1 EACH STRIP IN SCH ×4 (07:30→22:48)
[2022-10-13] MEDS: ESCITALOPRAM OXALATE (10 MG) 10 MG TABLET PO SCH (08:18)
[2022-10-13] MEDS: BRIMONIDINE TARTRATE OPHT SOLN 5 ML BOTTLE EACHEYE SCH ×3 (08:18→16:09)
[2022-10-13] MEDS: LOSARTAN POTASSIUM 50 MG TABLET PO SCH (08:18)
[2022-10-13] MEDS: PANTOPRAZOLE 40 MG TABLET.DR PO SCH (08:19)
[2022-10-13] MEDS: AMLODIPINE BESYLATE 10 MG TABLET PO SCH (08:19)
[2022-10-13] MEDS: LABETALOL HCL (100MG) 100 MG TABLET PO SCH ×2 (08:19→16:09)
--- NOTE | 2022-10-13 19:00 | NUR ---
MS RN CLOSING NOTE PATIENT LAYING IN BED, A/O X 3, ABLE TO MAKE NEEDS KNOWN, TOLERATING WELL ON 2 LPM O2 VIA CANNULA FOR COMFORT. NO COMPLAINTS OF PAIN OR DISCOMFORT AT THIS TIME. NO IV ACCESS AT THIS TIME, MD AWARE. REFUSED ALL ACCUCHECKS, VITAL SIGNS MONITORING, LAB DRAWS, AND MEDICATIONS DURING SHIFT. PATIENT WAS INFORMED OF RISKS OF REFUSAL AND BENEFITS OF ALLOWING THESE PROCEDURES BUT REFUSED X 3. MD AWARE. SAFETY MEASURES IN PLACE: BED IN LOWEST LOCKED POSITION, SIDE RAILS UP X 2, CALL LIGHT WITHIN REACH. ALL NEEDS MET. WILL ENDORSE TO POLICE OFFICER FOR JORGE.
--- NOTE | 2022-10-13 19:00 | NUR ---
noc rn opening received patient sitting in bed with feet dangling on bed. a/ox3. no s/s of apparent distress on 2lpm of o2 via nc. no c/o pain at this time but c/o itchiness. No IV access as endorsed. call light within reach. safety in place. will continue with patient's plan of care.
[2022-10-13 20:39] VITALS: BP 175/98
[2022-10-13] MEDS: ATORVASTATIN 40 MG TABLET PO SCH ×2 (22:00→22:31)
[2022-10-13] MEDS: LATANOPROST EYE DROP 0.005% 2.5 ML BOTTLE RIGHTEYE SCH (22:00)
--- NOTE | 2022-10-13 22:44 | NUR ---
noc rn note- Omnicell discrepancy patient was complaining of itchiness hence pulled benadryl out the omnicell and was already drawn out of the vial, patient doesn't have IV access and refused for me to stick him. Benadryl wasted on proper disposal bin with another RN to witness waste. Patient also refused the opened lipitor tab that he first agreed to take. Both meds wasted on proper waste bin.
[2022-10-13] MEDS: INSULIN REGULAR, HUMAN 100 UNIT/ML 3 ML VIAL SQ PRN (22:53)
--- NOTE | 2022-10-14 04:36 | NUR ---
noc rn note adamantly refused pictures of scab and buttock. per patient and to quote "I've had those for ages. I'm diabetic I don't know why you want to take pictures".
[2022-10-14 07:04] LABS: CALCIUM, SERUM 8.1 mg/dL (8.5-10.1); CREATININE 4.3 mg/dL (0.6-1.3); POTASSIUM 4.7 mmol/L (3.5-5.1)
[2022-10-14 07:10] LABS: ALBUMIN 3.1 g/dL (3.4-5.0); BILIRUBIN,TOTAL 0.8 mg/dL (0.2-1.0); TOTAL PROTEIN, SERUM 6.6 g/dL (6.4-8.2)
[2022-10-14] MEDS: BLOOD SUGAR DIAGNOSTIC 1 EACH STRIP IN SCH ×2 (07:30→12:09)
[2022-10-14 08:37] VITALS: BP 158/73
[2022-10-14] MEDS: PANTOPRAZOLE 40 MG TABLET.DR PO SCH ×2 (09:00→09:18)
[2022-10-14] MEDS: AMLODIPINE BESYLATE 10 MG TABLET PO SCH ×2 (09:00→09:18)
[2022-10-14] MEDS: BRIMONIDINE TARTRATE OPHT SOLN 5 ML BOTTLE EACHEYE SCH ×2 (09:00→13:00)
[2022-10-14] MEDS: ESCITALOPRAM OXALATE (10 MG) 10 MG TABLET PO SCH ×2 (09:00→09:17)
[2022-10-14] MEDS: LOSARTAN POTASSIUM 50 MG TABLET PO SCH ×2 (09:00→09:19)
[2022-10-14 09:18] VITALS: BP 158/73
[2022-10-14] MEDS: LABETALOL HCL (100MG) 100 MG TABLET PO SCH (09:18)
[2022-10-14] MEDS: INSULIN REGULAR, HUMAN 100 UNIT/ML 3 ML VIAL SQ PRN (12:14)
--- NOTE | 2022-10-14 15:29 | NUR ---
Patient discharged. Report given to JEFE Saldana at receiving facility. Patient refused pictures of scabs on lower extremities. Patient departed via ambulance stretcher.
--- NOTE | 2022-10-14 16:23 | NUR ---
Patient stated that he cannot sign discharge documents due to vision problems
== END 2022-10-14 15:30 | DRG 194 ==
LOC: ER 15:35 → TELE 22:06 → MED 10-05 10:21
PROVIDERS: ADMIT Internal Medicine; ATTEND Internal Medicine
PROC: 5A1D70Z Performance of Urinary Filtration, Intermittent, Less than 6 Hours Per Day (ICD-10-PCS; principal; 2022-09-27)
PROC: 30233N1 Transfusion of Nonautologous Red Blood Cells into Peripheral Vein, Percutaneous Approach (ICD-10-PCS; 2022-09-28)
DX: I13.2 Hypertensive heart and chronic kidney disease with heart failure and with stage 5 chronic kidney disease, or end stage renal disease (principal); N18.6 End stage renal disease; J81.1 Chronic pulmonary edema; D63.8 Anemia in other chronic diseases classified elsewhere; E11.22 Type 2 diabetes mellitus with diabetic chronic kidney disease; E87.5 Hyperkalemia; Z99.2 Dependence on renal dialysis; I50.9 Heart failure, unspecified; Z20.822 Contact with and (suspected) exposure to COVID-19; Z86.73 Personal history of transient ischemic attack (TIA), and cerebral infarction without residual deficits; E78.5 Hyperlipidemia, unspecified; Z79.4 Long term (current) use of insulin; Z79.51 Long term (current) use of inhaled steroids; Z79.899 Other long term (current) drug therapy; Z91.15 Patient's noncompliance with renal dialysis; Z91.199 Patient's noncompliance with other medical treatment and regimen due to unspecified reason; F32.A Depression, unspecified; M89.8X9 Other specified disorders of bone, unspecified site
CPT/HCPCS: 36415; 71045-TC; 80048-TC; 80053-TC; 80061-TC; 82962-TC; 83735-TC; 84100-TC; 85025-TC; 86704; 86705; 86706; 86803; 86850-TC; 87081-TC; 87340; 90935-TC; 94799-TC; 97110-TC; 97530-TC; C9113; C9803; G0378; J0610; J1200; J1644; J1815; J7030; P9016

== ENCOUNTER 2022-11-14 20:03 | Inpatient (IN) | payer OTHER ==
[~2022-11-14] VITALS: Ht 162.6 cm; Wt 54.0 kg
[~2022-11-14 20:03] MED LIST: ALBU1.257 IH; AMLO10TA4 PO; ATOR40TA PO; BRIM5DRO11 RIGHTEYE; ESCI10TA PO; INSU100V39 SQ; LABE100T5 PO; LATA2.5D15 RIGHTEYE; LEVO750T46 PO; SODI10PO PO
--- NOTE | 2022-11-14 20:35 | NUR ---
PATIENT BIBPA FROM SNF C/O ABNORMAL LABS. PATIENT IS A/O X4, RR EVEN AND UNLABORED NO SOB NOTED. VSS. PATIENT TAKEN TO ER BED 12. PATIENT CONNECTED TO CARDAIC AND POX MONITOR.
--- NOTE | 2022-11-14 20:39 | NUR ---
COVID SWAB COLLECTED
--- NOTE | 2022-11-14 20:39 | NUR ---
BLOOD WORK COLLECTED
[2022-11-14 21:01] LABS: BASOPHILS % (AUTO) 0.8 % (0.0-2.0); EOSINOPHILS % (AUTO) 3.9 % (0.0-6.0); LYMPHOCYTES # (AUTO) 0.5 K/uL (0.8-4.8); MEAN CORPUSCULAR HGB CONC 33 g/dl (31.0-36.0); MEAN CORPUSCULAR VOLUME 84 fL (80-96); MONOCYTES # (AUTO) 0.4 K/uL (0.1-1.30); MONOCYTES % (AUTO) 8.9 % (2.0-12.0); NEUTROPHILS % (AUTO) 73.4 % (43.0-81.0); PLATELET COUNT (AUTO) 151 K/uL (150-450); RED BLOOD CELL COUNT(AUTO) 2.21 MIL/uL (4.5-6.0); WHITE BLOOD COUNT (AUTO) 4.1 K/uL (4.3-11.0)
[2022-11-14 21:37] LABS: CALCIUM, SERUM 8.4 mg/dL (8.5-10.1); CREATININE 4.1 mg/dL (0.6-1.3); POTASSIUM 4.8 mmol/L (3.5-5.1)
[2022-11-14 21:43] LABS: ALBUMIN 3.1 g/dL (3.4-5.0); BILIRUBIN,DIRECT 0.2 mg/dL (0.0-0.2); BILIRUBIN,TOTAL 0.9 mg/dL (0.2-1.0); TOTAL PROTEIN, SERUM 6.7 g/dL (6.4-8.2)
[2022-11-14 22:06] LABS: HEMATOCRIT 19 % (39-51); HEMOGLOBIN 6.1 g/dL (13.5-17.5)
--- NOTE | 2022-11-14 22:11 | NUR ---
[facility] PAGED
[2022-11-14 22:17] LABS: BAND % (MANUAL) 1 % (0.0-5.0); EOSINOPHILS % (MANUAL) 3 % (0-4); LYMPHOCYTES % (MANUAL) 10 % (16-48); MONOCYTES % (MANUAL) 8 % (0-11.0); NEUTROPHILS % (MANUAL) 78 (42-76)
[2022-11-14] MEDS ORDERED: ACETAMINOPHEN 325 MG TABLET PO PRN (23:00)
[2022-11-14] MEDS ORDERED: ONDANSETRON HCL/PF 4 MG/2 ML VIAL IVP PRN (23:00)
[2022-11-14] MEDS ORDERED: MORPHINE SULFATE INJ 2 MG/ML DISP.SYRIN IV PRN (23:00)
--- NOTE | 2022-11-15 00:01 | NUR ---
REPORT GIVEN TO JEFE RIOS
--- NOTE | 2022-11-15 00:02 | NUR ---
PATIENT BEING TRANSFERRED TO [facility] VIA ACLS
--- NOTE | 2022-11-15 01:30 | NUR ---
SALES REPRESENTATIVE JEWELRYFEED INSPECTION SUPERVISOR NOTE RECEIVED REPORT FROM JEFE SOLOMON AND PATIENT WAS BROUGHT TO THE UNIT AT AROUND 0020 VIA STRETCHER, ACCOMPANIED BY ER STAFF. PATIENT WAS ADMITTED D/T LOW HGB LEVEL. PATIENT IS ALERT AND ORIENTED X3. ABLE TO MAKE NEEDS KNOWN. ON O2 INHALATION VIA NASAL CANNULA AT 4LPM. DIRECTED TO ROOM 304-2 AND EXPLAINED ADMISSION PROCESS INCLUDING SKIN ASSESSMENT. PATIENT PARTIALLY AGREED TO DO SKIN CHECK BUT REFUSED TO LET THIS ELECTRICAL TEST ENGINEER TAKE A LOOK ON HIS BACK AND HEELS. PATIENT ALSO KEEPS ON REFUSING VITALS SUCH TEMPERATURE AND BP CHECK DESPITE EXPLAINING RISK AND CONSEQUENCES OF NOT DOING SO. PATIENT IS REFUSING CARE OF THIS MOMENT. WITH ORDER TO TRANSFUSE 1 PACKED OF RBC, AWAITING FOR LAB RESULTS AND CLEARANCE. PATIENT INFORMED ABOUT THE PLAN AND CONSENT WAS SIGNED AND SECURED IN THE ER. PLACED IN A COMFORTABLE POSITION. ALL BELONGINGS CHECKED AND DOCUMENTED BY ASSIGNED STAFF. SAFETY MEASURES IN PLACE. KEPT BED IN LOCKED AND IN LOW POSITION. SIDE RAILS UP X2. ADVISED TO USE THE CALL LIGHT WHEN IN NEED OF ASSISTANCE.
--- NOTE | 2022-11-15 01:32 | NUR ---
REIMBURSEMENT SPECIALIST NOTE PATIENT REFUSED APPLICATION OF TELE BOX DESPITE EXPLAINING THE IMPORTANCE OF HAVING ONE. MD NOTIFIED.
[2022-11-15 01:34] VITALS: BP 146/77
--- NOTE | 2022-11-15 03:25 | NUR ---
GRADUATE TEACHING ASSOCIATE NOTE PATIENT C/O LEG PAIN 01/03 AND SAID THAT HE HAD IT PRIOR TO ADMISSION. MEDICATED WITH TYLENOL.
--- NOTE | 2022-11-15 06:06 | NUR ---
THREAD DRAWER NOTE PATIENT REFUSED BLOOD DRAW DESPITE EXPLAINING RISK AND CONSEQUENCES. PATIENT HAS HISTORY OF REFUSING CARE AND TREATMENT.
--- NOTE | 2022-11-15 06:18 | NUR ---
DONKEY ENGINE FIRER/FIREMAN CLOSING NOTE PATIENT IN BED, ASLEEP BUT EASY TO AROUSE AND RESPONSIVE. ALERT AND ORIENTED X3. ABLE TO MAKE NEEDS KNOWN. ON O2 INHALATION VIA NASAL CANNULA AT 4LPM. WITH IV ACCESS ON L WRIST 18G-SL AND L FA 20G- SL. WITH ORDER TO TRANSFUSE 1 PACKED OF RBC, AWAITING FOR LAB BANK AND CLEARANCE. CONSENT FOR BLOOD TRANSFUSION SIGNED AND SECURED. REFUSED COAT OPERATOR INSULATOR DESPITE EXPLAINING IMPORTANCE OF HAVING ONE. PLACED IN A COMFORTABLE POSITION. SAFETY MEASURES IN PLACE. KEPT BED IN LOCKED AND IN LOW POSITION. SIDE RAILS UP X2. ADVISED TO USE THE CALL LIGHT WHEN IN NEED OF ASSISTANCE. ALL NURSING NEEDS ATTENDED. ENDORSED TO INCOMING SHIFT FOR CONTINUITY OF CARE.
--- NOTE | 2022-11-15 06:42 | NUR ---
LOSS PREVENTION ANALYST NOTE CALLED LAB TO F/U ON STATUS OF BLOOD FOR TRANSFUSION AND SAID THAT THEY WILL CALL US BACK ONCE ITS READY/AVAILABLE. ENDORSED TO INCOMING SHIFT FOR CONTINUITY OF CARE.
[2022-11-15 07:45] VITALS: BP 152/85
[2022-11-15 08:15] VITALS: BP 172/86
--- NOTE | 2022-11-15 08:15 | NUR ---
PRIMER WATERPROOFING MACHINE ADJUSTER OPENING NOTE Patient received awake in bed, alert and oriented x 4 and very irritable and uncooperative. Patient refused to have his temperature taken. Pt.'s Hgb = 6.1, blood transfusion of 1 unit PRBCs begun at 8:00 AM. No adverse nor allergic reaction noted so far, continuing to monitor patient's status during transfusion.
[2022-11-15 08:30] VITALS: BP 146/74
[2022-11-15] MEDS: ESCITALOPRAM OXALATE (10 MG) 10 MG TABLET PO SCH (09:07)
[2022-11-15] MEDS: AMLODIPINE BESYLATE 10 MG TABLET PO SCH (09:07)
[2022-11-15] MEDS: LABETALOL HCL (100MG) 100 MG TABLET PO SCH ×2 (09:08→18:06)
--- NOTE | 2022-11-15 10:30 | NUR ---
HYPERTENSION (MEDICATION NON-COMPLIANCE) CLAUDIA REFUSED REPEATEDLY TO TAKE HIS ANTI-HYPERTENSIVE MEDICATION DESPITE HAVING HIGH BP. PATIENT EDUCATED ABOUT THE POSSIBLE OUTCOMES OF UNTREATED HYPERTENSION AND STILL REFUSED. PATIENT DENIED SUICIDALITY AND STATED HE UNDERSTOOD THE RISKS.
[2022-11-15 13:32] LABS: BASOPHILS % (AUTO) 0.5 % (0.0-2.0); EOSINOPHILS % (AUTO) 3.4 % (0.0-6.0); HEMATOCRIT 22 % (39-51); HEMOGLOBIN 7.1 g/dL (13.5-17.5); LYMPHOCYTES # (AUTO) 0.4 K/uL (0.8-4.8); LYMPHOCYTES % (AUTO) 7.2 % (20.0-44.0); MEAN CORPUSCULAR HGB CONC 33 g/dl (31.0-36.0); MEAN CORPUSCULAR VOLUME 83 fL (80-96); MONOCYTES # (AUTO) 0.4 K/uL (0.1-1.30); MONOCYTES % (AUTO) 8.4 % (2.0-12.0); NEUTROPHILS # (AUTO) 3.9 K/uL (1.8-8.9); NEUTROPHILS % (AUTO) 80.5 % (43.0-81.0); PLATELET COUNT (AUTO) 149 K/uL (150-450); RED BLOOD CELL COUNT(AUTO) 2.63 MIL/uL (4.5-6.0); WHITE BLOOD COUNT (AUTO) 4.9 K/uL (4.3-11.0)
[2022-11-15 13:55] LABS: BILIRUBIN,TOTAL 1.7 mg/dL (0.2-1.0); CALCIUM, SERUM 8.3 mg/dL (8.5-10.1); CREATININE 4.6 mg/dL (0.6-1.3); MAGNESIUM 2.2 mg/dL (1.8-2.4); PHOSPHORUS 5.7 mg/dL (2.5-4.9); POTASSIUM 4.9 mmol/L (3.5-5.1); TOTAL PROTEIN, SERUM 6.3 g/dL (6.4-8.2)
[2022-11-15] MEDS: BRIMONIDINE TARTRATE OPHT SOLN 5 ML BOTTLE RIGHTEYE SCH ×2 (14:38→21:02)
--- NOTE | 2022-11-15 18:50 | NUR ---
SKI MAKER WOOD CLOSING NOTE Patient was frequently irritable and non-compliant with treatment. Patient sometimes refused vital sign checks and never allowed temperature check. Patient refused to wear the frame table operator ordered by the hospitalist care provider. Patient did comply with his blood transfusion of 1 unit PRBCs without any complications nor adverse reactions and his Hgb improved from 6.1 to 7.1 by this afternoon. Patient verbally consented to hemodialysis treatment and 2.5 Liters fluid was removed from patient. Will endorse patent's status to night RN for JORGE.
--- NOTE | 2022-11-15 19:30 | NUR ---
FICTION AND NONFICTION WRITER PROSE OPENING NOTE RECEIVED PATIENT SLEEPING IN BED. PT A/O X 3-4, ABLE TO VERBALIZE NEEDS. PT ON O2 4 LPM VIA N/C. NO S/S OF RESPIRATORY DISTRESS NOTED. NO C/O PAIN AT THIS TIME. IV ACCESS TO LEFT FA 20G SL. SAFETY MEASURES IN PLACE: BED LOCKED IN LOW POSITION, SR UP X2, LIGHT CALL WITHIN REACH. WILL CONTINUE TO MONITOR PT THROUGHOUT SHIFT.
--- NOTE | 2022-11-15 21:15 | NUR ---
STITCH WHEELER NOTE PT REPORTS INSOMNIA. MD DAVE CALLED, AND MADE AWARE. ORDERS TRAZODONE 150 MG QHS FOR INSOMNIA. ORDER IMPLEMENTED, AND CARRIED OUT. TRAZODONE ADMINISTERED TO PT.
[2022-11-15 21:55] LABS: LYMPHOCYTES % (MANUAL) 9 % (16-48); MONOCYTES % (MANUAL) 4 % (0-11.0); NEUTROPHILS % (MANUAL) 87 (42-76)
[2022-11-15] MEDS ORDERED: LATANOPROST EYE DROP 0.005% 2.5 ML BOTTLE RIGHTEYE SCH (22:00)
[2022-11-15] MEDS ORDERED: ATORVASTATIN 40 MG TABLET PO SCH (22:00)
[2022-11-15] MEDS ORDERED: TRAZODONE 50 MG TABLET PO SCH (22:06)
[2022-11-16 04:00] VITALS: BP 155/78
[2022-11-16] MEDS: BRIMONIDINE TARTRATE OPHT SOLN 5 ML BOTTLE RIGHTEYE SCH ×2 (05:03→13:00)
--- NOTE | 2022-11-16 06:50 | NUR ---
FELT STRIP FINISHER CLOSING NOTE LEFT PATIENT SLEEPING IN BED. PT A/O X 3-4, ABLE TO VERBALIZE NEEDS. PT ON O2 4 LPM VIA N/C. NO S/S OF RESPIRATORY DISTRESS NOTED. NO C/O PAIN AT THIS TIME. IV ACCESS TO LEFT FA 20G SL. SAFETY MEASURES IN PLACE: BED LOCKED IN LOW POSITION, SR UP X2, LIGHT CALL WITHIN REACH. WILL ENDORSE PT TO AM SHIFT NURSE FOR JORGE.
--- NOTE | 2022-11-16 07:13 | NUR ---
ms rn received on bed, sleeping,not in any form of distress, respirations even and unlabored,no sob noted,lungs are diminish, abdomen soft,positive bowel sounds,denies pain at this time,all needs attended..
[2022-11-16 08:00] VITALS: BP 162/79
--- NOTE | 2022-11-16 09:00 | NUR ---
ms membreno breakfast served,due meds given, tolerated well.
[2022-11-16] MEDS: ESCITALOPRAM OXALATE (10 MG) 10 MG TABLET PO SCH (09:17)
[2022-11-16 09:18] VITALS: BP 162/79
[2022-11-16] MEDS: LABETALOL HCL (100MG) 100 MG TABLET PO SCH (09:18)
[2022-11-16] MEDS: AMLODIPINE BESYLATE 10 MG TABLET PO SCH (09:18)
--- NOTE | 2022-11-16 14:00 | NUR ---
ms rn patient is very noncompliant, no distress noted.
--- NOTE | 2022-11-16 15:00 | NUR ---
ms rn ready for transfer, patient refused to take pic to bilateral foot w/ scab, no s/s of infection, open to air.
--- NOTE | 2022-11-16 15:20 | NUR ---
ms rn get order to be discharge, report given to temi Vazquez motor vehicles supervisor of [facility], patient transferred via ambulance,all needs attended.
== END 2022-11-16 15:45 | DRG 194 ==
LOC: ER 20:08 → TELE 23:55
PROVIDERS: ADMIT Nurse Practitioner Acute Care; ATTEND Nurse Practitioner Acute Care
PROC: 30233N1 Transfusion of Nonautologous Red Blood Cells into Peripheral Vein, Percutaneous Approach (ICD-10-PCS; 2022-11-14)
PROC: 5A1D70Z Performance of Urinary Filtration, Intermittent, Less than 6 Hours Per Day (ICD-10-PCS; principal; 2022-11-15)
DX: I13.2 Hypertensive heart and chronic kidney disease with heart failure and with stage 5 chronic kidney disease, or end stage renal disease (principal); N18.6 End stage renal disease; D69.6 Thrombocytopenia, unspecified; E44.0 Moderate protein-calorie malnutrition; D63.8 Anemia in other chronic diseases classified elsewhere; E11.22 Type 2 diabetes mellitus with diabetic chronic kidney disease; Z99.2 Dependence on renal dialysis; I50.9 Heart failure, unspecified; Z20.822 Contact with and (suspected) exposure to COVID-19; H54.7 Unspecified visual loss; Z86.73 Personal history of transient ischemic attack (TIA), and cerebral infarction without residual deficits; Z79.4 Long term (current) use of insulin; Z79.51 Long term (current) use of inhaled steroids; Z79.899 Other long term (current) drug therapy; M89.8X9 Other specified disorders of bone, unspecified site; Z89.422 Acquired absence of other left toe(s); E80.6 Other disorders of bilirubin metabolism; E78.5 Hyperlipidemia, unspecified; F32.A Depression, unspecified; Z74.09 Other reduced mobility
CPT/HCPCS: 36415; 80048-TC; 80053-TC; 80076-TC; 83735-TC; 84100-TC; 85025-TC; 85730-TC; 86850-TC; 87081-TC; 90935-TC; C9803; G0378; J7030; P9016

== ENCOUNTER 2023-01-18 09:13 | Inpatient (IN) | payer OTHER ==
[~2023-01-18] VITALS: Ht 162.6 cm; Wt 48.5 kg
--- NOTE | 2023-01-18 09:43 | NUR ---
REAL MISSED DIALYSIS FOR 2 DAYS FRIDAY AND FRIDAY , PATIENT APPEARED TO HAVE SHORTNESS OF BREATH , O2SAT AT 98 AT 4 L/MIN VIA N/C.
--- NOTE | 2023-01-18 09:49 | NUR ---
ATTEMPTED TO START AN IV LINE BUT PATIENT STATED THAT I QUOTE: " GET THE FUCK OUT AT HERE , I DONT NEED YOUR HELP AND DONT FUCKING TOUCH ME " I EXPLAINED THE IMPORTANCE OF BLOOD TESTS FOR CONTINUITY OF CARE. PATIENT STATED AGAIN I QUOTE: " I DONT GIVE A FUCK YOU FUCKERS " WILL TRY TO CONVINCE AGAIN. PLAN OF CARE CONTINUES.
--- NOTE | 2023-01-18 09:52 | NUR ---
A/O X 3, REFUSING TO CHANGE INTO A GOWN,EKG AND LAB DRAW, CUSSING ALL STAFF, DR CANALES INFORMED
[2023-01-18 10:22] LABS: BASOPHILS # (AUTO) 0.1 K/uL (0.0-0.2); BASOPHILS % (AUTO) 0.8 % (0.0-2.0); EOSINOPHILS % (AUTO) 2.2 % (0.0-6.0); HEMATOCRIT 29 % (39-51); HEMOGLOBIN 9.1 g/dL (13.5-17.5); LYMPHOCYTES # (AUTO) 0.7 K/uL (0.8-4.8); LYMPHOCYTES % (AUTO) 7.1 % (20.0-44.0); MEAN CORPUSCULAR HGB CONC 32 g/dl (31.0-36.0); MEAN CORPUSCULAR VOLUME 85 fL (80-96); MONOCYTES # (AUTO) 0.5 K/uL (0.1-1.30); MONOCYTES % (AUTO) 5.4 % (2.0-12.0); NEUTROPHILS # (AUTO) 7.7 K/uL (1.8-8.9); NEUTROPHILS % (AUTO) 84.5 % (43.0-81.0); PLATELET COUNT (AUTO) 269 K/uL (150-450); RED BLOOD CELL COUNT(AUTO) 3.41 MIL/uL (4.5-6.0); WHITE BLOOD COUNT (AUTO) 9.2 K/uL (4.3-11.0)
[2023-01-18 10:36] LABS: ALBUMIN 3.1 g/dL (3.4-5.0); BILIRUBIN,DIRECT 0.2 mg/dL (0.0-0.2); BILIRUBIN,TOTAL 0.5 mg/dL (0.2-1.0); CALCIUM, SERUM 9.1 mg/dL (8.5-10.1); POTASSIUM 5.4 mmol/L (3.5-5.1); TOTAL PROTEIN, SERUM 7.3 g/dL (6.4-8.2)
[2023-01-18 10:39] LABS: CREATININE 8.2 mg/dL (0.6-1.3)
[2023-01-18 10:43] LABS: MAGNESIUM 2.5 mg/dL (1.8-2.4)
[2023-01-18 10:45] LABS: PHOSPHORUS 9.4 mg/dL (2.5-4.9)
--- NOTE | 2023-01-18 11:42 | NUR ---
LFA 20G PATENT BLOOD DRAWS, SMOOTH SALINE FLUSH.
[2023-01-18] MEDS ORDERED: SEVE800T7 PO (11:52)
[2023-01-18] MEDS ORDERED: SULF1TAB48 PO (11:52)
[2023-01-18] MEDS ORDERED: DIPH25CA51 PO (11:52)
[2023-01-18] MEDS ORDERED: INSU100V7 SQ (11:52)
[2023-01-18] MEDS ORDERED: PANT40TA2 PO (11:52)
[2023-01-18] MEDS ORDERED: CHOL100043 PO (11:52)
--- NOTE | 2023-01-18 12:20 | NUR ---
DR VALERIO NEPHBRANDON SPEAKING WITH DR RUTH
[2023-01-18] MEDS ORDERED: ZOLPIDEM TARTRATE 5 MG TABLET PO PRN (13:00)
[2023-01-18] MEDS ORDERED: ACETAMINOPHEN 325 MG TABLET PO PRN (13:00)
[2023-01-18] MEDS ORDERED: MAG HYDROX/AL HYDROX/SIMETH 30 ML UDC PO PRN (13:00)
[2023-01-18] MEDS ORDERED: Z GUARD REMEDY 4 OZ OINT TP PRN (13:00)
[2023-01-18] MEDS ORDERED: ONDANSETRON HCL/PF 4 MG/2 ML VIAL IVP PRN (13:00)
[2023-01-18] MEDS ORDERED: MAGNESIUM HYDROXIDE 30 ML UDC PO PRN (13:00)
--- NOTE | 2023-01-18 13:15 | NUR ---
BUTCHER ALL ROUND NOTE: RECEIVED PT VIA GEETHARJOSE FROM ER. PT IS AAOX4. ABLE TO MAKE NEEDS KNOWN . ON O2 AT 2LPM VIA NC. NO SOB. NO S/S DISTRESS NOTED. PT ORIENTED TO ROOM AND HOW TO USE THE CALL LIGHT. IV ACCESS ON LEFT FOREARM INTACT. R CHEST PERMA CATH NOTED. ALL BELONGINGS ACCOUNTED FOR. LUNGS CLEAR UPON AUSCULTATION. BOWEL SOUNDS PRESENT X4 QUADRANTS. SKIN ASSESSMENT DONE. PHOTOS TAKEN AND PLACED IN CHART. WOUND CARE CONSULT REQUESTED. VITAL SIGNS TAKEN FOLLOWS. BP171/100,PR88, RR18. PATIENT FOR DIALYSIS STAT. VERBAL CONSENT OBTAINED, PT STATES HES UNABLE TO SIGN DUE TO WEAKNESS. SAFETY PRECAUTION IN PLACED. BED IN LOW LOCK POSITION. S/R UP X2. CALL LIGHT WITHIN REACH. WILL CONT TO MONITOR. Addendum: 01/18/23 at 1811 by JOSS RAMSEY RN ADD: PATIENT REFUSE EXTERNAL MONITOR. DISCUSS RISK AND BENEFITS, PT STILL REFUSE.PT STATES "I DONT NEED IT"
--- NOTE | 2023-01-18 13:17 | NUR ---
hand-off report given to ebenezer MAYBERRY
--- NOTE | 2023-01-18 13:40 | NUR ---
MOVED TO INPATIENT ROOM SAFELY PER ACLS PROTOCOL .
[2023-01-18 13:50] VITALS: BP 171/100
[2023-01-18] MEDS: SEVELAMER CARBONATE 800 MG TABLET PO SCH ×3 (14:07→17:01)
[2023-01-18 16:00] VITALS: BP 176/95
[2023-01-18] MEDS: LABETALOL HCL (100MG) 100 MG TABLET PO SCH (17:14)
[2023-01-18] MEDS ORDERED: DEXTROSE 50%-WATER 50 ML DISP.SYRIN IV PRN (18:30)
[2023-01-18] MEDS ORDERED: ALBUTEROL HALF STRENGTH 1.25 MG/3 ML VIAL.NEB IH PRN (18:30)
--- NOTE | 2023-01-18 18:51 | NUR ---
TELE CLOSING NOTES: PT AAOX4. ABLE TO MAKE NEEDS KNOWN. CALL LIGHT WITHIN REACH. NO SOB. NO RESP DISTRESS NOTED. LUNGS CLEAR UPON AUSCULTATION. ABLE TO TOLERATE CURRENT DIET. SKIN WARM AND DRY TO TOUCH. ABD SOFT NON DISTENDED, BOWEL SOUNDS PRESENT. GOOD PERINEAL CARE RENDERED. TURNED AND REPOSITIONED FOR COMFORT AND GOOD CIRCULATION. BED LOW AND HOB ELEVATED. NEEDS MET AND ATTENDED PROMPTLY. ENDORSE TO NEXT SHIFT FOR CONTINUITY OF CARE. REMAINS CALM AND STABLE AT THIS TIME.
--- NOTE | 2023-01-18 19:30 | NUR ---
TELE OPENING NOTE RECEIVED PT SITTING ON BED. PT A/O X3-4, ABLE TO MAKE NEEDS KNOWN. NO SOB, NO RESPIRATORY DISTRESS NOTED. PT ON 2L O2 VIA NC. IV ACCESS TO LEFT FA #20 G, IV INTACT, AND PATENT. PERMA CATH TO R CHEST WALL FOR HD. SKIN WARM AND DRY TO TOUCH. ABD SOFT, NON DISTENDED. PT REFUSED TELE MONITOR. SAFETY MEASURES MAINTAINED: BED LOCKED IN LOW POSITION, SR UP X2, CALL LIGHT WITHIN REACH. WILL CONTINUE TO MONITOR PT.
[2023-01-18 20:00] VITALS: BP 160/88
[2023-01-18] MEDS: ATORVASTATIN 40 MG TABLET PO SCH ×2 (21:32→21:51)
[2023-01-18] MEDS: LATANOPROST EYE DROP 0.005% 2.5 ML BOTTLE RIGHTEYE SCH ×2 (21:33→21:51)
[2023-01-18] MEDS: BLOOD SUGAR DIAGNOSTIC 1 EACH STRIP IN SCH (21:34)
[2023-01-18] MEDS: INSULIN REGULAR, HUMAN 100 UNIT/ML 3 ML VIAL SQ PRN (21:45)
[2023-01-18] MEDS: INSULIN GLARGINE, 100 UNIT/ML CARTRIDGE SQ SCH (21:46)
--- NOTE | 2023-01-18 22:00 | NUR ---
MAGNET PLACER NOTE PT REFUSES LIPITOR, AND XALATAN EYE DROP. BENEFITS, AND ACTIONS OF MEDS EXPLAINED TO PT. BUT PT STILL DECLINES MEDS.
[2023-01-19] VITALS: BP 173/96
[2023-01-19 04:00] VITALS: BP 142/90
--- NOTE | 2023-01-19 06:44 | NUR ---
DIVISION ORDER TECHNICIAN CLOSING NOTE LEFT PT SLEEPING IN BED. PT A/O X3-4, ABLE TO MAKE NEEDS KNOWN. NO SOB, NO RESPIRATORY DISTRESS NOTED. PT ON 2L O2 VIA NC. IV ACCESS TO LEFT FA #20 G, IV INTACT, AND PATENT. PERMA CATH TO R CHEST WALL FOR HD. PT REFUSED TELE MONITOR. SAFETY MEASURES MAINTAINED: BED LOCKED IN LOW POSITION, SR UP X2, CALL LIGHT WITHIN REACH. WILL ENDORSE PT TO MORNING SHIFT NURSE FOR JORGE.
[2023-01-19 07:00] VITALS: BP 172/88
[2023-01-19] MEDS: PANTOPRAZOLE 40 MG TABLET.DR PO SCH (07:30)
[2023-01-19] MEDS: BLOOD SUGAR DIAGNOSTIC 1 EACH STRIP IN SCH ×4 (07:30→22:20)
[2023-01-19] MEDS: SEVELAMER CARBONATE 800 MG TABLET PO SCH ×3 (08:00→18:00)
--- NOTE | 2023-01-19 08:04 | NUR ---
Pt. refused CXR.
--- NOTE | 2023-01-19 08:15 | NUR ---
RN OPENING NOTE RECEIVED PATIENT IN BED AO x 4, ABLE TO RESPONDS PHYSICAL STIMULI. RESPIRATORY EVEN AND UNLABORED IN OXYGEN AT 2 Ls VIA NC. IN NO ACUTE RESPIRATORY DISTRESS OBSERVED. SKIN IS WARM TO TOUCH, KEEP CLEAN/DRY. THE PATIENT REMOVED IV LINE, AND REFUSED ACCU CHECK IN THIS MORNING. KEPT ELEVATED HOB FOR ASPIRATION PRECAUTION/ENSURE AIRWAY, ALSO LOWEST BED POSITIONED. BED ALARM IS ON AT ALL THE TIME FOR SAFETY. CALL LIGHT WITHIN REACH, WILL CONTINUE TO MONITOR.
[2023-01-19] MEDS: SULFAMETH/TRIMETH 800/160 MG 1 UDTAB TABLET PO SCH ×2 (09:00→17:00)
[2023-01-19] MEDS: CHOLECALCIFEROL 1,000 UNIT TABLET (VIT D3) PO SCH (09:00)
[2023-01-19] MEDS: ESCITALOPRAM OXALATE (10 MG) 10 MG TABLET PO SCH (09:00)
[2023-01-19] MEDS: LABETALOL HCL (100MG) 100 MG TABLET PO SCH ×2 (09:00→17:00)
[2023-01-19] MEDS: AMLODIPINE BESYLATE 10 MG TABLET PO SCH (09:00)
--- NOTE | 2023-01-19 09:28 | NUR ---
THE PATIENT REFUSED ALL MORNING MEDICATIONS, MADE AWARE.
--- NOTE | 2023-01-19 10:23 | NUR ---
NEW ORDER: PSYCH CONSULT. FACE SHEET FAXED OVER TO [employer].
[2023-01-19 12:00] VITALS: BP 175/114
--- NOTE | 2023-01-19 12:18 | NUR ---
THE PATIENT REMOVED IV LINE, AND REFUSED TO MAKE NEW IV LINE. ALSO THE PATIENT REQUESTED CHEESE SANDWICH AT LUNCH TIME, HOWEVER, THE KITCHEN DENIES DUE TO THE PATIENT IS THE RENAL DIET.
[2023-01-19] MEDS ORDERED: Medication Not On Formulary EA (Sodium Zirconium Cyclosilicate (Lokelma) 10 GM) PO SCH (13:00)
[2023-01-19] MEDS ORDERED: NEPRO VAN 237 ML CAN PO PRN (15:00)
[2023-01-19 16:00] VITALS: BP 168/92
--- NOTE | 2023-01-19 16:40 | NUR ---
PATIENT REFUSED TO CHECK BLOOD SUGAR.
[2023-01-19] MEDS: BRIMONIDINE TARTRATE OPHT SOLN 5 ML BOTTLE OP SCH (17:00)
[2023-01-19] MEDS ORDERED: EPOETIN ALFA (4000 UNIT) 4,000 UNIT/ML VIAL IV SCH (17:00)
[2023-01-19] MEDS: EPOETIN ALFA-EPBX 4,000 UNIT/ML VIAL IV SCH (17:06)
--- NOTE | 2023-01-19 17:32 | NUR ---
PATIENT NOTED POSITIVE MRSA REPORTED BY [facility]. NEW ORDER: APPLY BACTROBAN OINTMENT ON BILATERAL NARES X 10 DAYS.
--- NOTE | 2023-01-19 17:44 | NUR ---
PATIENT ACCEPTED TAKE A LABETALOL, BUT PATIENT CHANGED MIND AND REFUSED TO TAKE LABETALOL. DUE TO OPENED PACKAGE LABETALOL, WASTED THE PHARMACEUTICAL BOTTLE AT MEDS ROOM. REFUSED ALL PM MEDS, INCLUDE NEW ORDER EPOGEN AND BACTROBAN OINTMENT. DR. VALERIO WHO ORDERED EPOGEN AND MADE AWARE. PHARMACY AWARE OF REGARDING ABOVE ALSO.
[2023-01-19] MEDS: CALCIUM ACETATE 667 MG CAP/TAB PO SCH (18:00)
--- NOTE | 2023-01-19 18:10 | NUR ---
PATIENT FOUND ON THE FLOOR, PATIENT STATED " I WAS GONNA WALK BUT I COULD NOT, I JUST SCROLL DOWN!" FOUND BY THE NURSE. ASSESSED THE PATIENT;ABLE TO MOVE ALL EXTREMITIES WITHOUT PAIN, DENIES HEAD INJURY AND REMAIN AO X 4. NO INJURIES OBSERVED. IN STABLE VITAL SIGNS. INFORMED MD, INCIDENT REPORT DONE. CALL LIGHT WITHIN REACH, BED ALARM IS ON AT ALL THE TIME. WILL CONTINUE TO MONITOR.
--- NOTE | 2023-01-19 19:30 | NUR ---
REDRYING MACHINE OPERATOR OPENING NOTE RECEIVED PT RESTING IN BED, VERBALLY RESPONSIVE. PT ON O2 @ 2LPM VIA NC, TOLERATING WELL. NO SOB OR S/S OF RESPIRATORY DISTRESS. BREATHING EVEN AND UNLABORED. REFUSING EXTERNAL HOT STAMP OPERATOR AT THIS TIME. NO IV ACCESS, MD AWARE, STILL REFUSING REINSERTION. SAFETY PRECAUTIONS IN PLACE. BED IN LOWEST LOCKED POSITION, HOB ELEVATED, SIDE RAILS UP X3, BED ALARM ON, AND CALL LIGHT AND TABLE WITHIN REACH. ALL NEEDS MET AT THIS TIME.
[2023-01-19 20:00] VITALS: BP 177/104
--- NOTE | 2023-01-19 20:47 | NUR ---
RN NOTE PT NOTED WITH BP 177/104 AND [address] VALERIO WITH NEW ORDER FOR AMLODIPINE 5 MG PO ONE TIME. NEW ORDER READ BACK, NOTED, AND CARRIED OUT. CHARGE NURSE LILLY INFORMED.
[2023-01-19] MEDS: MUPIROCIN OINT 2% 22 GM TUBE NS SCH (20:56)
[2023-01-19] MEDS: LATANOPROST EYE DROP 0.005% 2.5 ML BOTTLE RIGHTEYE SCH (21:00)
[2023-01-19] MEDS ORDERED: AMLODIPINE BESYLATE 5 MG TABLET PO ONE (21:00)
[2023-01-19] MEDS ORDERED: AMLODIPINE BESYLATE 5 MG TABLET PO SCH (21:00)
[2023-01-19] MEDS: ATORVASTATIN 40 MG TABLET PO SCH (21:00)
--- NOTE | 2023-01-19 21:00 | NUR ---
RN NOTE PT WAS WILLING TO TAKE BP MED DR VALERIO ORDERED. ADMINISTERED AMLODIPINE 5 MG ONCE PER ORDER. PT REFUSING ALL OTHER MEDS, INCLUDING ATORVASTATIN, MUPIROCIN, AND LATANOPROST. EDUCATED PT ON THE IMPORTANCE OF MED COMPLIANCE, PT STILL REFUSED. PT STATED HE WILL BE WILLING TO HAVE BLOOD SUGAR CHECKED LATER AFTER LINEN CHANGE.
[2023-01-19] MEDS: INSULIN REGULAR, HUMAN 100 UNIT/ML 3 ML VIAL SQ PRN (22:21)
[2023-01-19] MEDS: INSULIN GLARGINE, 100 UNIT/ML CARTRIDGE SQ SCH (22:24)
[2023-01-20] VITALS: BP 136/96
[2023-01-20] MEDS: BLOOD SUGAR DIAGNOSTIC 1 EACH STRIP IN SCH ×4 (06:37→22:07)
--- NOTE | 2023-01-20 06:48 | NUR ---
INTEGRATIVE MEDICINE PHYSICIAN CLOSING NOTE RECEIVED PT RESTING IN BED, VERBALLY RESPONSIVE. PT ON O2 @ 2LPM VIA NC, TOLERATING WELL. NO SOB OR S/S OF RESPIRATORY DISTRESS. BREATHING EVEN AND UNLABORED. REFUSING EXTERNAL GROCERY STORE BAGGER THE WHOLE SHIFT. NO IV ACCESS, MD AWARE, STILL REFUSING REINSERTION, OFFERED X4. REFUSED 4 AM VITALS. SAFETY PRECAUTIONS IN PLACE AT ALL TIMES. BED IN LOWEST LOCKED POSITION, HOB ELEVATED, SIDE RAILS UP X3, BED ALARM ON, AND CALL LIGHT AND TABLE WITHIN REACH. ALL NEEDS MET AT THIS TIME AND WILL ENDORSE TO ONCOMING NURSE FOR JORGE.
[2023-01-20] MEDS: PANTOPRAZOLE 40 MG TABLET.DR PO SCH (07:30)
--- NOTE | 2023-01-20 07:42 | NUR ---
MS JEFE OPENING NOTE () RECEIVED PATIENT IN BED AO x 4, ABLE TO MAKE HIS NEEDS KNOWN. RESPIRATIONS ARE EVEN AND UNLABORED ON OXYGEN AT 2 LPM VIA NC. IN NO ACUTE RESPIRATORY DISTRESS OBSERVED. SKIN IS WARM TO TOUCH, KEPT CLEAN/DRY. PATIENT CONTINUES TO REFUSE IV ACCESS, HOSPITALIST PROVIDER IS AWARE. HOB IS ELEVATED FOR ASPIRATION PRECAUTION/TO ENSURE AIRWAY. FALL PRECAUTIONS IN PLACE: LOWEST BED POSITIONED; BED ALARM IS ON AT ALL THE TIMES; 2 BED SIDE RAILS ARE UP; BED BRAKES ARE LOCKED; AND CALL LIGHT WITHIN REACH, WILL CONTINUE TO CARE FOR AND MONITOR PATIENT PER HOSPITALIST PROVIDER'S POC. Addendum: 01/20/23 at 0951 by DORINA HORVATH RN Patient continues to refuse laboratory monitor. Hospitalist provider aware.
[2023-01-20] MEDS: CALCIUM ACETATE 667 MG CAP/TAB PO SCH ×3 (08:00→17:11)
[2023-01-20] MEDS: SEVELAMER CARBONATE 800 MG TABLET PO SCH ×3 (08:00→17:11)
[2023-01-20] MEDS: AMLODIPINE BESYLATE 10 MG TABLET PO SCH ×2 (08:16→10:37)
[2023-01-20] MEDS: BRIMONIDINE TARTRATE OPHT SOLN 5 ML BOTTLE OP SCH ×3 (08:19→17:00)
[2023-01-20] MEDS: MUPIROCIN OINT 2% 22 GM TUBE NS SCH ×2 (08:19→21:00)
[2023-01-20] MEDS: SULFAMETH/TRIMETH 800/160 MG 1 UDTAB TABLET PO SCH ×2 (08:19→17:00)
[2023-01-20] MEDS: ESCITALOPRAM OXALATE (10 MG) 10 MG TABLET PO SCH (08:19)
[2023-01-20] MEDS: CHOLECALCIFEROL 1,000 UNIT TABLET (VIT D3) PO SCH (08:19)
[2023-01-20 09:45] VITALS: BP 167/92
[2023-01-20] MEDS: LABETALOL HCL (100MG) 100 MG TABLET PO SCH ×2 (10:38→18:36)
--- NOTE | 2023-01-20 10:50 | NUR ---
WOUND CARE CONSULT: PT ADAMANTLY REFUSED SKIN ASSESSMENT. REVIEWED CHART, NURSING DOCUMENTATION AND PHOTOS WHICH INDICATE RT BUTTOCK OPEN WOUND, SKIN CONDITION (RASH) TO BACK, RED RASH TO PERINEUM, AREAS OF SKIN DISCOLORATION. RT LOWER LEG DRY WOUND WITH REDNESS, RT EAR LESION, ALL PRESENT ON ADMISSION. DEFER TO PMD FOR BACK RASH. DR PRUETT CALLED FOR SURGICAL CONSULT OF RT BUTTOCK WOUND AND DR EVERETT FOR DPM CONSULT. RECOMMENDATIONS MADE FOR SKIN PROTECTION AND RT BUTTOCK WOUND CARE. DISCUSSED WITH NURSING STAFF. PT IS INDEPENDENT WITH BED MOBILITY. MD IN AGREEMENT WITH PLAN OF CARE.
--- NOTE | 2023-01-20 11:00 | NUR ---
MS RN UPDATE NOTE (SAYSHIFT) Spoke with hospitalist provider Lilian Vann DNP, about having anticoagulant medication ordered for patient's level 5 DVT risk. Asked patient if he would take lovenox SQ or pill anticoagulant and explained to the patient the possible risks and negative outcomes of a blood clot and the importance of the medication. Pt stated he understood the explanation and still refused to take medication. Relayed pt's response to Lilian Vann DNP.
[2023-01-20 11:19] LABS: BASOPHILS # (AUTO) 0.1 K/uL (0.0-0.2); BASOPHILS % (AUTO) 1.4 % (0.0-2.0); EOSINOPHILS % (AUTO) 1.5 % (0.0-6.0); HEMATOCRIT 26 % (39-51); HEMOGLOBIN 8.3 g/dL (13.5-17.5); LYMPHOCYTES # (AUTO) 0.4 K/uL (0.8-4.8); MEAN CORPUSCULAR HGB CONC 32 g/dl (31.0-36.0); MEAN CORPUSCULAR VOLUME 84 fL (80-96); MONOCYTES # (AUTO) 0.4 K/uL (0.1-1.30); MONOCYTES % (AUTO) 4.1 % (2.0-12.0); NEUTROPHILS # (AUTO) 8.6 K/uL (1.8-8.9); PLATELET COUNT (AUTO) 205 K/uL (150-450); RED BLOOD CELL COUNT(AUTO) 3.12 MIL/uL (4.5-6.0); WHITE BLOOD COUNT (AUTO) 9.7 K/uL (4.3-11.0)
[2023-01-20 11:47] LABS: CALCIUM, SERUM 8.3 mg/dL (8.5-10.1); POTASSIUM 4.7 mmol/L (3.5-5.1)
[2023-01-20] MEDS: INSULIN REGULAR, HUMAN 100 UNIT/ML 3 ML VIAL SQ PRN ×3 (12:20→22:09)
[2023-01-20] MEDS: HYDROGEL DRESSING 90 GM TUBE TP PRN ×2 (12:26→14:53)
[2023-01-20] MEDS: HYDROGEL DRESSING 90 GM TUBE TP SCH (14:54)
--- NOTE | 2023-01-20 19:00 | NUR ---
HYPERBARIC WELDER DIVER CLOSING NOTE (DAYSHIFT) PT RESTING IN BED, VERBALLY RESPONSIVE. PT ON O2 @ 2LPM VIA NC, TOLERATING WELL. NO SOB OR S/S OF RESPIRATORY DISTRESS. BREATHING EVEN AND UNLABORED. REFUSING EXTERNAL LOOM CHECKER THE WHOLE SHIFT. NO IV ACCESS, MD AWARE, STILL REFUSING REINSERTION, OFFERED X 3. HAD HEMODIALYSIS TODAY, 2 LITERS FLUID DRAINED FROM HD. PATIENT REFUSED ALL MEDICATIONS EXCEPT FOR BLOOD PRESSURE AND ANTI-DIARRHEAL MEDICATION AND INSULIN SQ. NEW ORDER TO COLLECT STOOL SPECIMEN FOR CLOSTRIDIUM DIFFICILE. SAFETY PRECAUTIONS IN PLACE AT ALL TIMES. BED IN LOWEST LOCKED POSITION, HOB ELEVATED, SIDE RAILS UP X3, BED ALARM ON, AND CALL LIGHT AND TABLE WITHIN REACH. ALL NEEDS MET AT THIS TIME AND WILL ENDORSE TO ONCOMING NURSE, BLAKE, FOR JORGE.
[2023-01-20] MEDS: ACIDOPHILUS/BULGARICUS 1 EACH TAB.CHEW PO SCH (19:04)
--- NOTE | 2023-01-20 19:23 | NUR ---
TELEPHONE QUOTATION CLERK OPENING NOTE RECEIVED PT RESTING IN BED, VERBALLY RESPONSIVE. PT ON O2 @ 2LPM VIA NC, TOLERATING WELL. NO SOB OR S/S OF RESPIRATORY DISTRESS. BREATHING EVEN AND UNLABORED. REFUSING EXTERNAL FIELD HORTICULTURAL SPECIALTY GROWER AT THIS TIME. NO IV ACCESS, MD AWARE. SAFETY PRECAUTIONS IN PLACE. BED IN LOWEST LOCKED POSITION, HOB ELEVATED, SIDE RAILS UP X3, BED ALARM ON, AND CALL LIGHT AND TABLE WITHIN REACH. ALL NEEDS MET AT THIS TIME.
[2023-01-20] MEDS: ATORVASTATIN 40 MG TABLET PO SCH (21:11)
[2023-01-20] MEDS: LATANOPROST EYE DROP 0.005% 2.5 ML BOTTLE RIGHTEYE SCH (21:12)
[2023-01-20] MEDS: INSULIN GLARGINE, 100 UNIT/ML CARTRIDGE SQ SCH (22:09)
[2023-01-21] MEDS: BLOOD SUGAR DIAGNOSTIC 1 EACH STRIP IN SCH ×4 (06:35→21:26)
--- NOTE | 2023-01-21 06:40 | NUR ---
CONDITIONER TUMBLER OPERATOR CLOSING NOTE RECEIVED PT RESTING IN BED, VERBALLY RESPONSIVE. PT ON O2 @ 2LPM VIA NC, TOLERATING WELL. NO SOB OR S/S OF RESPIRATORY DISTRESS. BREATHING EVEN AND UNLABORED. REFUSING EXTERNAL TRAIN OPERATIONS SUPERVISOR THE WHOLE SHIFT. NO IV ACCESS, MD AWARE, STILL REFUSING REINSERTION, OFFERED X4. SAFETY PRECAUTIONS IN PLACE AT ALL TIMES. BED IN LOWEST LOCKED POSITION, HOB ELEVATED, SIDE RAILS UP X3, BED ALARM ON, AND CALL LIGHT AND TABLE WITHIN REACH. ALL NEEDS MET AT THIS TIME AND WILL ENDORSE TO ONCOMING NURSE FOR JORGE.
[2023-01-21 07:30] VITALS: BP 131/70
[2023-01-21] MEDS: PANTOPRAZOLE 40 MG TABLET.DR PO SCH (07:30)
--- NOTE | 2023-01-21 07:53 | NUR ---
RN OPENING NOTE PATIENT AWAKE IN BED RESTING, A/O X 4. NO S/S OF PAIN NOTED AT THIS TIME. ON 2L OXYGEN VIA NC, BREATHING EVEN UNLABORED, NO DISTRESS OR SHORTNESS OF BREATH NOTED. NO IV ACCESS, PATIENT REFUSED. PATEIN WITH RCW PERMACATH. PATIENT REFUSED PACKING ROOM WORKER. FALL AND SAFETY MEASURES IN PLACE, BED ALARM ON, BED IN LOW AND LOCK POSITION, CALL LIGHT AND TABLE WITHIN EASY REACH, SIDE RAILS UP X2. WILL CONTINUE TO MONITOR.
[2023-01-21] MEDS: SEVELAMER CARBONATE 800 MG TABLET PO SCH ×3 (08:00→18:00)
[2023-01-21] MEDS: CALCIUM ACETATE 667 MG CAP/TAB PO SCH ×3 (08:00→18:00)
[2023-01-21] MEDS: SULFAMETH/TRIMETH 800/160 MG 1 UDTAB TABLET PO SCH ×2 (08:10→17:00)
[2023-01-21] MEDS: ACIDOPHILUS/BULGARICUS 1 EACH TAB.CHEW PO SCH ×2 (08:10→17:00)
[2023-01-21] MEDS: BRIMONIDINE TARTRATE OPHT SOLN 5 ML BOTTLE OP SCH ×3 (08:10→17:00)
[2023-01-21] MEDS: MUPIROCIN OINT 2% 22 GM TUBE NS SCH ×2 (08:10→21:00)
[2023-01-21] MEDS: HYDROGEL DRESSING 90 GM TUBE TP SCH (08:11)
[2023-01-21] MEDS: ESCITALOPRAM OXALATE (10 MG) 10 MG TABLET PO SCH (08:11)
[2023-01-21] MEDS: AMLODIPINE BESYLATE 10 MG TABLET PO SCH (08:11)
[2023-01-21] MEDS: CHOLECALCIFEROL 1,000 UNIT TABLET (VIT D3) PO SCH (08:11)
[2023-01-21] MEDS: LABETALOL HCL (100MG) 100 MG TABLET PO SCH ×2 (08:11→17:00)
--- NOTE | 2023-01-21 08:11 | NUR ---
RN NOTES PATIENT REFUSED ALL MORNING MEDS AND VITAL SIGNS. MULTIPLE ATTEMPTS WERE MADE X3. WILL TRY AGAIN, WILL CONTINUE TO MONITOR.
--- NOTE | 2023-01-21 11:50 | NUR ---
RN NOTES PATIENT IS NOT IN ROOM, PT WENT IN FOR SURGERY EGD. CHARGE NURSE AWARE
[2023-01-21 11:54] LABS: BASOPHILS # (AUTO) 0.1 K/uL (0.0-0.2); EOSINOPHILS % (AUTO) 1.9 % (0.0-6.0); HEMATOCRIT 28 % (39-51); HEMOGLOBIN 8.8 g/dL (13.5-17.5); LYMPHOCYTES # (AUTO) 0.5 K/uL (0.8-4.8); MEAN CORPUSCULAR HGB CONC 31 g/dl (31.0-36.0); MEAN CORPUSCULAR VOLUME 86 fL (80-96); MONOCYTES # (AUTO) 0.5 K/uL (0.1-1.30); MONOCYTES % (AUTO) 5.3 % (2.0-12.0); NEUTROPHILS # (AUTO) 7.9 K/uL (1.8-8.9); NEUTROPHILS % (AUTO) 86.8 % (43.0-81.0); PLATELET COUNT (AUTO) 184 K/uL (150-450); RED BLOOD CELL COUNT(AUTO) 3.27 MIL/uL (4.5-6.0); WHITE BLOOD COUNT (AUTO) 9.1 K/uL (4.3-11.0)
[2023-01-21 12:11] LABS: CALCIUM, SERUM 8.6 mg/dL (8.5-10.1); CREATININE 3.4 mg/dL (0.6-1.3); POTASSIUM 4.2 mmol/L (3.5-5.1)
[2023-01-21 16:00] VITALS: BP 173/90
[2023-01-21] MEDS: EPOETIN ALFA-EPBX 4,000 UNIT/ML VIAL IV SCH (17:06)
--- NOTE | 2023-01-21 19:30 | NUR ---
MS RN OPENING NOTE RECEIVED PATIENT FROM AM NURSE; AWAKE IN BED, A/O X 4; NO S/S OF PAIN NOTED AT THIS TIME; ON NASAL CANNULA AT 2LPM, TOLERATING WELL, BREATHING EVENLY AND UNLABORED, NO DISTRESS OR SHORTNESS OF BREATH NOTED; NO IV ACCESS, PATIENT REFUSED; WITH RCW PERMACATH IN PLACE; PATIENT REFUSED DATA ACQUISITION TECHNICIAN; PATIENT WAS ENDORSED NONCOMPLIANT, REFUSED ALL MEDICATIONS; SAFETY MEASURES IMPLEMENTED, BED ALARM ON, BED IN LOW AND LOCK POSITION, CALL LIGHT AND TABLE WITHIN EASY REACH, SIDE RAILS UP X2; WILL CONTINUE TO MONITOR THROUGHOUT SHIFT
[2023-01-21 20:00] VITALS: BP 150/77
--- NOTE | 2023-01-21 20:01 | NUR ---
RN CLOSING NOTE PATIENT AWAKE IN BED RESTING, A/O X 4. NO S/S OF PAIN NOTED AT THIS TIME. ON ROOM AIR, BREATHING EVEN UNLABORED, NO DISTRESS OR SHORTNESS OF BREATH NOTED. NO IV ACCESS, PATIENT REFUSED. PATEIN WITH RCW PERMACATH. PATIENT REFUSED FIRE WATCHER. PATIENT IS NONCOMPLIANT, REFUSED ALL MEDICATIONS. FALL AND SAFETY MEASURES IN PLACE, BED ALARM ON, BED IN LOW AND LOCK POSITION, CALL LIGHT AND TABLE WITHIN EASY REACH, SIDE RAILS UP X2. ALL NEED ATTENDED AND ANTICIPATED. WILL ENDORSE TO SENIOR CONSULTANT NURSE.
[2023-01-21 21:16] VITALS: BP 156/77
[2023-01-21] MEDS: ATORVASTATIN 40 MG TABLET PO SCH ×2 (21:21→21:26)
[2023-01-21] MEDS: LATANOPROST EYE DROP 0.005% 2.5 ML BOTTLE RIGHTEYE SCH (21:26)
[2023-01-21] MEDS ORDERED: DIPHENOXYLATE HCL/ATROP SULF 1 UDTAB TABLET PO PRN (21:30)
[2023-01-21] MEDS: INSULIN GLARGINE, 100 UNIT/ML CARTRIDGE SQ SCH (21:33)
[2023-01-21] MEDS: INSULIN REGULAR, HUMAN 100 UNIT/ML 3 ML VIAL SQ PRN (21:36)
[2023-01-22] MEDS: BLOOD SUGAR DIAGNOSTIC 1 EACH STRIP IN SCH ×2 (06:50→12:00)
[2023-01-22] MEDS: PANTOPRAZOLE 40 MG TABLET.DR PO SCH (07:30)
--- NOTE | 2023-01-22 07:44 | NUR ---
RN OPENING NOTE PATIENT AWAKE IN BED RESTING, A/O X 4. NO S/S OF PAIN NOTED AT THIS TIME. ON ROOM AIR, BREATHING EVEN UNLABORED, NO DISTRESS OR SHORTNESS OF BREATH NOTED. NO IV ACCESS, PATIENT REFUSED. PATEIN WITH RCW PERMACATH. FALL AND SAFETY MEASURES IN PLACE, BED ALARM ON, BED IN LOW AND LOCK POSITION, CALL LIGHT AND TABLE WITHIN EASY REACH, SIDE RAILS UP X2. WILL CONTINUE TO MONITOR.
--- NOTE | 2023-01-22 07:50 | NUR ---
MS RN CLOSING NOTE PATIENT AWAKE IN BED, A/O X 4; NO S/S OF PAIN NOTED AT THIS TIME; ON NASAL CANNULA AT 2LPM, TOLERATING WELL, BREATHING EVENLY AND UNLABORED, NO DISTRESS OR SHORTNESS OF BREATH NOTED; NO IV ACCESS, PATIENT REFUSED; WITH RCW PERMACATH IN PLACE; PATIENT REFUSED ELECTRICAL JOURNEYMAN; PATIENT WAS ENDORSED NONCOMPLIANT, REFUSED ALL ORAL MEDICATIONS BUT WAS ABLE TO ADMINISTER INSULIN; SAFETY MEASURES IMPLEMENTED, BED ALARM ON, BED IN LOW AND LOCK POSITION, CALL LIGHT AND TABLE WITHIN EASY REACH, SIDE RAILS UP X2; WILL ENDORSE TO AM NURSE FOR JORGE.
[2023-01-22] MEDS: SEVELAMER CARBONATE 800 MG TABLET PO SCH ×2 (08:00→12:23)
[2023-01-22] MEDS: SULFAMETH/TRIMETH 800/160 MG 1 UDTAB TABLET PO SCH (08:42)
[2023-01-22] MEDS: ACIDOPHILUS/BULGARICUS 1 EACH TAB.CHEW PO SCH (08:42)
[2023-01-22] MEDS: ESCITALOPRAM OXALATE (10 MG) 10 MG TABLET PO SCH (08:42)
[2023-01-22] MEDS: MUPIROCIN OINT 2% 22 GM TUBE NS SCH (08:42)
[2023-01-22] MEDS: BRIMONIDINE TARTRATE OPHT SOLN 5 ML BOTTLE OP SCH ×2 (08:42→12:23)
[2023-01-22] MEDS: CHOLECALCIFEROL 1,000 UNIT TABLET (VIT D3) PO SCH (08:43)
[2023-01-22] MEDS: HYDROGEL DRESSING 90 GM TUBE TP SCH (08:43)
[2023-01-22] MEDS: LABETALOL HCL (100MG) 100 MG TABLET PO SCH (08:43)
[2023-01-22] MEDS: AMLODIPINE BESYLATE 10 MG TABLET PO SCH (08:43)
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
[2023-01-22 10:16] LABS: BASOPHILS # (AUTO) 0.1 K/uL (0.0-0.2); BASOPHILS % (AUTO) 0.6 % (0.0-2.0); EOSINOPHILS % (AUTO) 1.9 % (0.0-6.0); HEMATOCRIT 25 % (39-51); HEMOGLOBIN 7.6 g/dL (13.5-17.5); LYMPHOCYTES # (AUTO) 0.4 K/uL (0.8-4.8); LYMPHOCYTES % (AUTO) 4.8 % (20.0-44.0); MEAN CORPUSCULAR HGB CONC 31 g/dl (31.0-36.0); MEAN CORPUSCULAR VOLUME 86 fL (80-96); MONOCYTES # (AUTO) 0.5 K/uL (0.1-1.30); MONOCYTES % (AUTO) 5.4 % (2.0-12.0); NEUTROPHILS # (AUTO) 7.4 K/uL (1.8-8.9); NEUTROPHILS % (AUTO) 87.3 % (43.0-81.0); PLATELET COUNT (AUTO) 140 K/uL (150-450); RED BLOOD CELL COUNT(AUTO) 2.85 MIL/uL (4.5-6.0); WHITE BLOOD COUNT (AUTO) 8.5 K/uL (4.3-11.0)
[2023-01-22 11:59] LABS: CALCIUM, SERUM 7.8 mg/dL (8.5-10.1); CREATININE 3.3 mg/dL (0.6-1.3); POTASSIUM 4.5 mmol/L (3.5-5.1)
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
== END 2023-01-22 15:26 | DRG 422 ==
LOC: ER 09:15 → TELE 13:20 → MED 01-21 17:11
PROVIDERS: ADMIT Nurse Practitioner Acute Care
PROC: 5A1D70Z Performance of Urinary Filtration, Intermittent, Less than 6 Hours Per Day (ICD-10-PCS; principal; 2023-01-18)
DX: E87.5 Hyperkalemia (principal); E86.1 Hypovolemia; G92.8 Other toxic encephalopathy; I13.2 Hypertensive heart and chronic kidney disease with heart failure and with stage 5 chronic kidney disease, or end stage renal disease; L89.313 Pressure ulcer of right buttock, stage 3; E44.1 Mild protein-calorie malnutrition; E11.22 Type 2 diabetes mellitus with diabetic chronic kidney disease; D63.8 Anemia in other chronic diseases classified elsewhere; L89.896 Pressure-induced deep tissue damage of other site; L89.626 Pressure-induced deep tissue damage of left heel; L89.616 Pressure-induced deep tissue damage of right heel; L03.115 Cellulitis of right lower limb; N18.6 End stage renal disease; I50.9 Heart failure, unspecified; E83.39 Other disorders of phosphorus metabolism; E11.65 Type 2 diabetes mellitus with hyperglycemia; Z20.822 Contact with and (suspected) exposure to COVID-19; E78.5 Hyperlipidemia, unspecified; Z86.73 Personal history of transient ischemic attack (TIA), and cerebral infarction without residual deficits; Z99.2 Dependence on renal dialysis; Z91.199 Patient's noncompliance with other medical treatment and regimen due to unspecified reason; H54.7 Unspecified visual loss; H40.9 Unspecified glaucoma; Z79.4 Long term (current) use of insulin; Z79.51 Long term (current) use of inhaled steroids; Z79.899 Other long term (current) drug therapy; E87.1 Hypo-osmolality and hyponatremia; M89.8X9 Other specified disorders of bone, unspecified site; R21 Rash and other nonspecific skin eruption; Z86.59 Personal history of other mental and behavioral disorders
CPT/HCPCS: 36415; 80048-TC; 80076-TC; 82962-TC; 83735-TC; 84100-TC; 85025-TC; 87081-TC; 90935-TC; A6248; C9803; G0378; J0885; J1815; J7030

== ENCOUNTER 2023-02-21 14:58 | Emergency (ER) | payer OTHER ==
[~2023-02-21] VITALS: Ht 165.1 cm; Wt 40.8 kg
[~2023-02-21 14:58] MED LIST changes: +CHOL100043 PO; +DIPH25CA51 PO; +INSU100V7 SQ; -LEVO750T46 PO; +PANT40TA2 PO; +SEVE800T7 PO; +SULF1TAB48 PO
--- NOTE | 2023-02-21 15:30 | NUR ---
pt put on bed cc not able to do dialysis for 2wks because he had diarrhea. he fell down while standing hit his head . stayed in the hosp for 3 days
--- NOTE | 2023-02-21 15:57 | NUR ---
bld sugar 105
--- NOTE | 2023-02-21 16:06 | NUR ---
covid swAB DONE SENT TO LAB
[2023-02-21] MEDS ORDERED: ACET-868 PO (16:07)
[2023-02-21] MEDS ORDERED: ONDA-97 PO (16:07)
[2023-02-21] MEDS ORDERED: EPOE40007 SQ (16:07)
[2023-02-21] MEDS ORDERED: MAG30ORA PO (16:07)
[2023-02-21] MEDS ORDERED: DOXY100T2 PO (16:07)
[2023-02-21] MEDS ORDERED: MAGN400O6 PO (16:07)
[2023-02-21] MEDS ORDERED: DIPH1TAB PO (16:07)
[2023-02-21] MEDS ORDERED: SEVE2.4P3 PO (16:07)
[2023-02-21] MEDS ORDERED: LACT1CAP71 PO (16:07)
--- NOTE | 2023-02-21 16:29 | NUR ---
established iv line 20 g left forearm , infusing well
--- NOTE | 2023-02-21 16:31 | NUR ---
lab at bedside for blood draw
[2023-02-21 16:47] LABS: BASOPHILS # (AUTO) 0.1 K/uL (0.0-0.2); BASOPHILS % (AUTO) 1.3 % (0.0-2.0); EOSINOPHILS % (AUTO) 1.9 % (0.0-6.0); HEMATOCRIT 37 % (39-51); HEMOGLOBIN 11.4 g/dL (13.5-17.5); LYMPHOCYTES # (AUTO) 0.6 K/uL (0.8-4.8); LYMPHOCYTES % (AUTO) 9.9 % (20.0-44.0); MEAN CORPUSCULAR HGB CONC 31 g/dl (31.0-36.0); MEAN CORPUSCULAR VOLUME 81 fL (80-96); MONOCYTES # (AUTO) 0.7 K/uL (0.1-1.30); MONOCYTES % (AUTO) 11.3 % (2.0-12.0); NEUTROPHILS # (AUTO) 4.6 K/uL (1.8-8.9); NEUTROPHILS % (AUTO) 75.6 % (43.0-81.0); PLATELET COUNT (AUTO) 275 K/uL (150-450); RED BLOOD CELL COUNT(AUTO) 4.51 MIL/uL (4.5-6.0)
[2023-02-21 16:58] LABS: POTASSIUM 5.1 mmol/L (3.5-5.1)
[2023-02-21 17:04] LABS: CREATININE 9.9 mg/dL (0.6-1.3)
--- NOTE | 2023-02-21 17:34 | NUR ---
CALLED [facility] FOR TRANSPORT ETA 30 MINS PER GLORIA.
--- NOTE | 2023-02-21 18:30 | NUR ---
IV removed. Catheter intact and site benign. Pressure and 4x4 applied to site. No bleeding noted.
[2023-02-21 18:52] LABS: BAND % (MANUAL) 3 % (0.0-5.0); EOSINOPHILS % (MANUAL) 1 % (0-4); LYMPHOCYTES % (MANUAL) 10 % (16-48); MONOCYTES % (MANUAL) 10 % (0-11.0); NEUTROPHILS % (MANUAL) 76 (42-76)
--- NOTE | 2023-02-21 18:53 | NUR ---
TRANSPORT AT BED SIDE FOR STATIONARY BOILER FIREMAN
[2023-02-21 19:09] VITALS: BP 139/69
== END 2023-02-21 19:09 ==
LOC: ER 15:05
DX: I12.0 Hypertensive chronic kidney disease with stage 5 chronic kidney disease or end stage renal disease (principal); N18.9 Chronic kidney disease, unspecified; E11.22 Type 2 diabetes mellitus with diabetic chronic kidney disease; Z86.73 Personal history of transient ischemic attack (TIA), and cerebral infarction without residual deficits; Z79.899 Other long term (current) drug therapy; Z20.822 Contact with and (suspected) exposure to COVID-19; Z99.2 Dependence on renal dialysis
CPT/HCPCS: 99285; 71045; 87426; 93005; 85025; 80048; 36415; 85730; 82962; 85007; C9803

== ENCOUNTER 2023-02-23 20:53 | Inpatient (IN) | payer OTHER ==
[~2023-02-23] VITALS: Ht 162.6 cm; Wt 41.7 kg
[~2023-02-23 20:53] MED LIST changes: +ACET-868 PO; +DIPH1TAB PO; -DIPH25CA51 PO; +DOXY100T2 PO; +EPOE40007 SQ; +LACT1CAP71 PO; +MAG30ORA PO; +MAGN400O6 PO; +ONDA-97 PO; +SEVE2.4P3 PO; -SEVE800T7 PO; -SULF1TAB48 PO
--- NOTE | 2023-02-23 20:55 | NUR ---
kyle, from [facility], missed HD x 1 week, refusing HD bc "felt sick", c/o headache, nausea. HD Cath to [facility]. Pt A/Ox3. Tolerating O2 1lpm via N/C. Safety Measures in place
--- NOTE | 2023-02-23 21:52 | NUR ---
COVID SWAB COLLECTED AND SENT TO LAB
--- NOTE | 2023-02-23 21:52 | NUR ---
IV LINE ESTABLISHED [id number], BLOOD COLLECTED AND SENT TO LAB
[2023-02-23 22:20] LABS: BASOPHILS % (AUTO) 0.7 % (0.0-2.0); EOSINOPHILS % (AUTO) 1.5 % (0.0-6.0); HEMATOCRIT 36 % (39-51); HEMOGLOBIN 11.2 g/dL (13.5-17.5); LYMPHOCYTES # (AUTO) 0.5 K/uL (0.8-4.8); MEAN CORPUSCULAR HGB CONC 31 g/dl (31.0-36.0); MEAN CORPUSCULAR VOLUME 82 fL (80-96); MONOCYTES # (AUTO) 0.8 K/uL (0.1-1.30); MONOCYTES % (AUTO) 11.6 % (2.0-12.0); NEUTROPHILS # (AUTO) 5.8 K/uL (1.8-8.9); NEUTROPHILS % (AUTO) 79.2 % (43.0-81.0); PLATELET COUNT (AUTO) 230 K/uL (150-450); RED BLOOD CELL COUNT(AUTO) 4.41 MIL/uL (4.5-6.0); WHITE BLOOD COUNT (AUTO) 7.3 K/uL (4.3-11.0)
[2023-02-23 22:49] LABS: ALANINE AMINOTRANSFERASE 9 U/L (12-78); ALBUMIN 3.5 g/dL (3.4-5.0); ASPARTATE AMINOTRANSFERASE 14 U/L (15-37); BILIRUBIN,TOTAL 0.8 mg/dL (0.2-1.0); CALCIUM, SERUM 9.8 mg/dL (8.5-10.1); CARBON DIOXIDE 24 mmol/L (21-32); CHLORIDE 96 mmol/L (98-107); GLUCOSE 118 mg/dL (74-106); POTASSIUM 5.6 mmol/L (3.5-5.1); SODIUM SERUM 138 mmol/L (136-145); TOTAL PROTEIN, SERUM 8.4 g/dL (6.4-8.2)
--- NOTE | 2023-02-23 22:58 | NUR ---
CRITICAL: BUN 84 CREAT 11.6
[2023-02-23 23:02] LABS: UREA NITROGEN, BLOOD 84 mg/dL (7-18)
[2023-02-23 23:03] LABS: ALKALINE PHOSPHATASE < 10 U/L (46-116); CREATININE 11.6 mg/dL (0.6-1.3)
--- NOTE | 2023-02-23 23:22 | NUR ---
room [id number]
--- NOTE | 2023-02-23 23:46 | NUR ---
REPORT GIVEN TO ZACHARIAH Christina RN FOR JORGE
--- NOTE | 2023-02-23 23:53 | NUR ---
GRAIN COMMODITY MANAGER AT PT'S BEDSIDE
[2023-02-24] MEDS ORDERED: DEXTROSE 50%-WATER 50 ML DISP.SYRIN IV PRN (01:00)
[2023-02-24] MEDS ORDERED: Z GUARD REMEDY 4 OZ OINT TP PRN (01:00)
[2023-02-24] MEDS ORDERED: ACETAMINOPHEN 325 MG TABLET PO PRN (01:00)
[2023-02-24] MEDS ORDERED: ZOLPIDEM TARTRATE 5 MG TABLET PO PRN (01:00)
[2023-02-24] MEDS ORDERED: MAGNESIUM HYDROXIDE 30 ML UDC PO PRN (01:00)
[2023-02-24] MEDS ORDERED: ONDANSETRON HCL/PF 4 MG/2 ML VIAL IVP PRN (01:00)
[2023-02-24] MEDS ORDERED: ALBUTEROL HALF STRENGTH 1.25 MG/3 ML VIAL.NEB IH PRN (01:00)
[2023-02-24] MEDS ORDERED: MAG HYDROX/AL HYDROX/SIMETH 30 ML UDC PO PRN (01:00)
[2023-02-24 01:15] VITALS: BP 178/89
--- NOTE | 2023-02-24 01:22 | NUR ---
PT TRANSFERRED TO [facility] VIA ACLS PROTOCOL. VSS. ALL BELONGINGS WITH PT.
--- NOTE | 2023-02-24 02:00 | NUR ---
RN NOTES PATIENT REFUSED PLACEMENT OF TELE MONITORING DEVICE, PHYSICIAN MADE AWARE. WILL CONTINUE TO MONITOR.
--- NOTE | 2023-02-24 02:33 | NUR ---
BOAT OUTFITTING SUPERVISOR OPENING NOTES ADMITTED AT 52 Y/O MALE WITH DX OF END STAGE RENAL DISEASE. A/O X 3 EASILY AGITATED AND YELLING TO STAFFS. NON AMBULATORY ON BED REST. TRANSFERRED TO BED SAFELY AND SECURED. SKIN ASSESSMENT DONE AND PICTURES TAKE AND RECORDED. HISTORY TAKEN AND RECORDED BASE ON THE OLD RECORD. PM CARE RENDERED. WITH IV ACCESS AT RIGHT HAND #20G PATENT AND INTACT, WITH PERM CATHETER AT RIGHT CHEST OF HD ACCESS. ORIENTATION TO THE UNIT DONE, NO PAIN OR DISCOMFORT NOTED AT THIS TIME. KEPT BED ON LOWER LOCKED POSITION, KEPT ADDY RAILS P X 2 ALL TH E TIME. KEPT CALL LIGHT WITHIN AT REACH . WILL CONTINUE TO MONITOR.
[2023-02-24] MEDS: BLOOD SUGAR DIAGNOSTIC 1 EACH STRIP VI SCH ×4 (06:30→22:10)
--- NOTE | 2023-02-24 06:30 | NUR ---
RN NOTES PATIENT REFUSED BLOOD SUGAR CHECK. WILL CONTINUE TO MONITOR
--- NOTE | 2023-02-24 06:33 | NUR ---
C ENGINEER CLOSING NOTES PATIENT IS IN BED, ASLEEP ON MODERATE HIGH BACK REST POSITION. ON ROOM AIR SATURATING WELL. WITH PRN OXYGEN AT BEDSIDE. NO COMPLAIN OR SOB MD DISTRESS AT THIS TIME. NO PAIN OR DISCOMFORT AT THIS TIME. WITH IV ACCESS AT RIGHT WRIST #20G PATENT AND INTACT. NO SWELLING OR REDNESS NOTED. WITH RIGHT PERM CATHETER FOR HD USE ONLY.PM CARE RENDERED, ALL NEEDS ATTENDED. KEPT PATIENT WARM AND COMFORTABLE AT ALL TIME.KEPT BED ON LOWER LOCKED POSITION, KEPT SIDE RAILS UP X2 ALL THE TIME, KEPT CALL LIGHT WITHIN AT REACH.
[2023-02-24 07:00] VITALS: BP 165/77
--- NOTE | 2023-02-24 07:00 | NUR ---
BANANA HANDLER OPENING NOTES: RECEIVED PT IN BED, AWAKE. ALERT AND ORIENTED X3. NO SOB OR CARDIAC DISTRESS NOTED. PT REFUSED TELE MONITOR MD MADE AWARE PER IT ADMINISTRATIVE ASSISTANT RN. ON ROOM AIR TOLERATING WELL SATURATING 97 %. HD SITE: R CHEST WALL PERMA CATH.INTACT. IV ACCESS ON R WRIST PATENT, INTACT AND SALINE LOCKED. SAFETY MEASURES MAINTAINED: BED LOCKED AND IN LOWEST POSITION, SIDE RAILS UP X 2. CALL LIGHT IN EASY REACH AND WILL MONITOR PT ACCORDINGLY.
[2023-02-24] MEDS: PANTOPRAZOLE 40 MG TABLET.DR PO SCH (07:46)
[2023-02-24] MEDS: SEVELAMER CARBONATE 800 MG TABLET PO SCH ×3 (08:00→18:00)
[2023-02-24] MEDS: CHOLECALCIFEROL 1,000 UNIT TABLET (VIT D3) PO SCH (09:00)
[2023-02-24] MEDS: AMLODIPINE BESYLATE 10 MG TABLET PO SCH (09:00)
[2023-02-24] MEDS ORDERED: NEPRO VAN 237 ML CAN PO PRN ×2 (09:00→12:00)
[2023-02-24] MEDS: BRIMONIDINE TARTRATE OPHT SOLN 5 ML BOTTLE RIGHTEYE SCH ×3 (09:00→17:00)
[2023-02-24] MEDS: ESCITALOPRAM OXALATE (10 MG) 10 MG TABLET PO SCH (09:00)
[2023-02-24] MEDS ORDERED: EPOETIN ALFA-EPBX 4,000 UNIT/ML VIAL SQ SCH (09:00)
[2023-02-24] MEDS: LACTOBACILLUS RHAMNOSUS GG 1 EACH CAP.SPRINK PO SCH ×2 (09:00→17:00)
[2023-02-24] MEDS: LABETALOL HCL (100MG) 100 MG TABLET PO SCH ×2 (09:00→17:00)
--- NOTE | 2023-02-24 09:59 | NUR ---
RN NOTES: PATIENT REFUSED ALL MORNING MEDICATIONS, OFFERED X 3 AND EXPLAINED THE RISK AND BENEFITS. DR ROSS MADE AWARE.
--- NOTE | 2023-02-24 09:59 | NUR ---
RN NOTES: PT CONSENTED HD THAT SCHEDULED TODAY. PT LEGALLY BLIND AND TRIED TO SIGN. RN AND CHARGE DAVID SIGNED WITNESS.
[2023-02-24 12:00] VITALS: BP 154/72
[2023-02-24] MEDS: INSULIN REGULAR, HUMAN 100 UNIT/ML 3 ML VIAL SQ PRN ×2 (12:15→17:25)
--- NOTE | 2023-02-24 12:16 | NUR ---
RN NOTES: UNABLE TO ASSESS ORTHOSTATIC BP PT UNABLE TO STAND UP. DR ROSS MADE AWARE (NURSING STATION).
--- NOTE | 2023-02-24 12:30 | NUR ---
RN NOTES: PT STARTED HD, PT STABLE AND CALM AT THIS TIME.
--- NOTE | 2023-02-24 14:00 | NUR ---
RN NOTES: PATIENT UNFINISHED DIALYSIS DUE TO SEVERE HYPOTENSION. PT OUTPUT [id number]. PT IS IN BED RESTING.
[2023-02-24 14:54] LABS: THYROID STIMULATING HORMONE 0.223 uIU/mL (0.358-3.74)
[2023-02-24 15:51] VITALS: BP 180/83
--- NOTE | 2023-02-24 16:18 | NUR ---
PT REFUSED AN ECHOCARDIOGRAM. INFORMED JEFE PERSAUD.
--- NOTE | 2023-02-24 18:56 | NUR ---
HUMAN RESOURCES RECEPTIONIST CLOSING NOTES: PT IN BED, AWAKE. ALERT AND ORIENTED X3, VERY NEEDY. NO SOB OR CARDIAC DISTRESS NOTED. PT REFUSED TELE MONITOR. ON ROOM AIR TOLERATING WELL SATURATING 97 %. HD SITE: R CHEST WALL PERMA CATH.INTACT. IV ACCESS ON R WRIST PATENT, INTACT AND SALINE LOCKED. SAFETY MEASURES MAINTAINED: BED LOCKED AND IN LOWEST POSITION, SIDE RAILS UP X 2. CALL LIGHT IN EASY REACH AND WILL MONITOR PT ACCORDINGLY. ENDORSED TO RETURNS CLERK RN FOR CONTINUITY OF CARE.
--- NOTE | 2023-02-24 19:15 | NUR ---
RN OPENING NOTE PT IS SITTING IN BED, WITH HIS LEGS DANGLING AT THE BED SIDE BETWEEN THE SIDE RAILS. HELPED WITH THE PT TO BE BACK TO HIS BED. PT IS ON RA, TOLERATED WELL. NO S/S OF DISTRESS OR SOB. PT IS ALERT AND ORIENTED, AO X 3. HE IS VERY AGITATED AND REFUSED DAY SHIFT MEDICATIONS ACCORDING TO THE CHANGE SHIFT REPORT. PT IS SUPPOSED TO BE ON TELE AND WEARING THE EXTERNAL AUTOMATION QA LEAD, HOWEVER, PT REFUSES TO BE PUT ON THE EXTERNAL MONITOR. AWARE. EDUCATED THE PT TO WEAR THE EXTERNAL AUTOMATION QA LEAD, PT STILL REFUSED. IV ACCESS IS AT HIS R WRIST, #20G, SL. FLUSHED WELL WITH 10 CC OF NS. IV SITE IS PATENT AND INTACT. SAFETY MEASURES ARE IN PLACED: BED IN LOWEST AND LOCKED POSITION; BED ALARM IS ON; SIDE RAILS X 3; CALL LIGHT AND TABLE ARE WITHIN REACH. WILL CONTINUE MONITORING THE PT AND PROVIDE THE CARE PT NEEDS.
[2023-02-24 20:00] VITALS: BP 176/86
--- NOTE | 2023-02-24 21:35 | NUR ---
RN NOTE PT'S BP IS 176/86, RECHECKED THE BP, STILL THE SAME. CONTACTING [facility] AND NOTIFIED CHARGE NURSE, LILLY, NOTIFIED.
[2023-02-24] MEDS: LATANOPROST EYE DROP 0.005% 2.5 ML BOTTLE RIGHTEYE SCH (22:11)
[2023-02-24] MEDS: ATORVASTATIN 40 MG TABLET PO SCH (22:11)
[2023-02-24] MEDS: INSULIN GLARGINE, 100 UNIT/ML CARTRIDGE SQ SCH (22:12)
[2023-02-24] MEDS: *INSULIN REGULAR(HUMULIN R)HUM 100 UNIT/ML VIAL SQ PRN (22:15)
--- NOTE | 2023-02-24 22:30 | NUR ---
RN NOTE PT'S BP IS 176/86. RECHECKED HIS BP MANUALLY, REMAINS THE SAME. CONTACTED DR. TAIWO SMALL AND REPORTED THE SITUATION. WAITING FOR REPLY AND ORDER.
--- NOTE | 2023-02-24 22:54 | NUR ---
RN NOTE MD TAIWO SMALL REPLIED: DUE TO THIS PT HAS BEEN REFUSING MEDICATIONS, NO ORDER FOR NOW. MONITOR THE PT. Addendum: 02/24/23 at 2259 by DEDE RUIZ RN LILLY RUSSELL, NOTIFIED.
[2023-02-25] VITALS: BP 168/78
[2023-02-25 04:00] VITALS: BP 166/77
--- NOTE | 2023-02-25 06:00 | NUR ---
RN NOTE PT REFUSED AM LAB DRAW.
--- NOTE | 2023-02-25 06:01 | NUR ---
PT REFUSED DRINKING APPLE JUICE, BUT REQUESTING FOR ORANGE JUICE INSTEAD. EDUCATED THE PT THAT ORANGE JUICE IS HIGH IN POTASSIUM, AND PT'S POTASSIUM IS HIGH IN YESTERDAY'S MORNING LAB. PT STATED "I DON'T CARE".
--- NOTE | 2023-02-25 06:07 | NUR ---
RN NOTE PT'S BLOOD SUGAR IS 64. 110 ML OF ORANGE JUICE AND 50 ML OF APPLE JUICE GIVEN TO THE PT ORALLY. WILL RECHECK THE BLOOD SUGAR IN ABOUT 30 MINS. Addendum: 02/25/23 at 0618 by DEDE RUIZ RN PT REFUSED TO INTAKE MORE JUICE. WILL RECHECK THE BS.
[2023-02-25] MEDS: BLOOD SUGAR DIAGNOSTIC 1 EACH STRIP VI SCH ×4 (06:36→21:45)
--- NOTE | 2023-02-25 07:15 | NUR ---
RN OPENING NOTE PT AWAKE, AO X 3. PT IS ON RA, TOLERATED WELL. NO S/S OF DISTRESS OR SOB NOTED. PT REFUSED TO WEAR EXTERNAL NEWSPAPER MANAGING EDITOR. EDUCATED THE PT ABOUT THE BENEFITS OF WEARING EXTERNAL NEWSPAPER MANAGING EDITOR AND RISKS OF NOT WEARING IT, PT STILL REFUSED. AWARE. IV ACCESS IS AT HIS R WRIST, #20G, SL. C/D/I. SAFETY MEASURES IN PLACED: BED IN LOWEST AND LOCKED POSITION; BED ALARM IS ON; SIDE RAILS X 3; CALL LIGHT AND TABLE WITHIN REACH. WILL CONTINUE TO MONITOR FOR JORGE
--- NOTE | 2023-02-25 07:25 | NUR ---
RN CLOSING NOTE PT IS SLEEPING IN BED, EASILY BEING AROUSED. PT IS ON RA, TOLERATED WELL. NO S/S OF DISTRESS OR SOB. PT IS ALERT AND ORIENTED, AO X 3. THROUGH THE SHIFT, ALL THE MEDICATIONS HAVE BEEN TAKEN. HOWEVER, PT REFUSED TO WEAR EXTERNAL COUNTY SHERIFF. AWARE. EDUCATED THE PT TO WEAR THE EXTERNAL COUNTY SHERIFF, PT STILL REFUSED. IV ACCESS IS AT HIS R WRIST, #20G, SL. FLUSHED WELL WITH 10 CC OF NS. IV SITE IS PATENT AND INTACT. SAFETY MEASURES ARE IN PLACED: BED IN LOWEST AND LOCKED POSITION; BED ALARM IS ON; SIDE RAILS X 3; CALL LIGHT AND TABLE ARE WITHIN REACH. ENDORSED NEXT SHIFT NURSE FOR CONTINUING PT CARE. Addendum: 02/25/23 at 0728 by DEDE RUIZ RN HD ACCESS AT HIS R CHEST WALL, DRESSING IS CLEAN, DRY AND INTACT.
[2023-02-25] MEDS: PANTOPRAZOLE 40 MG TABLET.DR PO SCH (07:30)
[2023-02-25] MEDS: SEVELAMER CARBONATE 800 MG TABLET PO SCH ×3 (08:00→18:00)
[2023-02-25] MEDS: LACTOBACILLUS RHAMNOSUS GG 1 EACH CAP.SPRINK PO SCH ×2 (08:43→17:00)
[2023-02-25] MEDS: AMLODIPINE BESYLATE 10 MG TABLET PO SCH (08:43)
[2023-02-25] MEDS: ESCITALOPRAM OXALATE (10 MG) 10 MG TABLET PO SCH (08:43)
[2023-02-25] MEDS: LABETALOL HCL (100MG) 100 MG TABLET PO SCH ×2 (08:44→17:00)
[2023-02-25] MEDS: CHOLECALCIFEROL 1,000 UNIT TABLET (VIT D3) PO SCH (08:45)
[2023-02-25] MEDS: BRIMONIDINE TARTRATE OPHT SOLN 5 ML BOTTLE RIGHTEYE SCH ×3 (08:46→17:00)
--- NOTE | 2023-02-25 09:07 | NUR ---
patient refused/noncompliant to taking medications and blood draw. Patient reeducated regarding risks and benefits but still refused. MD & Charge nurse aware
[2023-02-25 12:00] VITALS: BP_SYST 133; BP_SYST 138; BP_DIAS 80; BP_DIAS 88
--- NOTE | 2023-02-25 12:06 | NUR ---
Patient just started on hemodialysis, ends in 3 hrs approx. Orthostatic blood pressure test to follow after HD
[2023-02-25 13:00] LABS: BASOPHILS # (AUTO) 0.1 K/uL (0.0-0.2); BASOPHILS % (AUTO) 0.9 % (0.0-2.0); EOSINOPHILS % (AUTO) 1.3 % (0.0-6.0); HEMATOCRIT 36 % (39-51); HEMOGLOBIN 11.3 g/dL (13.5-17.5); LYMPHOCYTES # (AUTO) 0.5 K/uL (0.8-4.8); LYMPHOCYTES % (AUTO) 7.3 % (20.0-44.0); MEAN CORPUSCULAR HGB CONC 31 g/dl (31.0-36.0); MEAN CORPUSCULAR VOLUME 84 fL (80-96); MONOCYTES # (AUTO) 0.5 K/uL (0.1-1.30); MONOCYTES % (AUTO) 7.2 % (2.0-12.0); NEUTROPHILS # (AUTO) 5.4 K/uL (1.8-8.9); NEUTROPHILS % (AUTO) 83.3 % (43.0-81.0); PLATELET COUNT (AUTO) 166 K/uL (150-450); RED BLOOD CELL COUNT(AUTO) 4.36 MIL/uL (4.5-6.0); WHITE BLOOD COUNT (AUTO) 6.4 K/uL (4.3-11.0)
[2023-02-25 13:13] LABS: CALCIUM, SERUM 9.4 mg/dL (8.5-10.1); CREATININE 5.1 mg/dL (0.6-1.3); POTASSIUM 3.8 mmol/L (3.5-5.1)
[2023-02-25 13:28] LABS: ALBUMIN 3.5 g/dL (3.4-5.0); BILIRUBIN,TOTAL 0.9 mg/dL (0.2-1.0); MAGNESIUM 2.4 mg/dL (1.8-2.4); PHOSPHORUS 3.7 mg/dL (2.5-4.9); TOTAL PROTEIN, SERUM 8.3 g/dL (6.4-8.2)
--- NOTE | 2023-02-25 15:12 | NUR ---
Patient refused orthostatic BP, patient reeducated of benefits and risks. Per HD nurse report, HD tx terminated earlier due to low bp per record, 82/54 at 1400. Total HD output at 344 ml. Post HD vitals: BP-87/61, ME-87; RR-19, patient refused temperature check. total wt-40.3kg. Patient will be referred for GPS consult.
--- NOTE | 2023-02-25 16:35 | NUR ---
Patient MRSA positive per call from [facility] at [phone]
--- NOTE | 2023-02-25 18:38 | NUR ---
RN CLOSING NOTE PT IS SLEEPING IN BED, AROUSABLE, A/O X3. PT IS ON RA, TOLERATED WELL. NO S/S OF DISTRESS, PAIN NOR SOB. PATIENT REFUSED MOST OF HIS MEDICATIONS THROUGHOUT SHIFT AND REFUSED TO WEAR EXTERNAL REGIONAL RETAIL SALES MANAGER. MD AWARE. PATIENT REEDUCATED ON BENEFITS AND RISKS BUT STILL REFUSED. PATIENT WAS REFERRED TO GPS PER MD RECOMMENDATION. PATIENT HAS IV ACCESS AT HIS R WRIST, #20G, SL, C/D/I. SAFETY MEASURES IN PLACED, BED IN LOWEST AND LOCKED POSITION; BED ALARM ON; SIDE RAILS X 3; CALL LIGHT AND TABLE WITHIN REACH. WILL BE ENDORSED TO PM SHIFT NURSE FOR JORGE
[2023-02-25 20:06] VITALS: BP 179/96
[2023-02-25] MEDS ORDERED: hydrALAZINE HCL 25 MG TABLET PO PRN (21:30)
[2023-02-25] MEDS: LATANOPROST EYE DROP 0.005% 2.5 ML BOTTLE RIGHTEYE SCH (21:44)
[2023-02-25] MEDS: INSULIN GLARGINE, 100 UNIT/ML CARTRIDGE SQ SCH (21:44)
[2023-02-25] MEDS: ATORVASTATIN 40 MG TABLET PO SCH (21:44)
--- NOTE | 2023-02-25 21:45 | NUR ---
RN NOTE PT SBP 171 REPORTED TO SPOT SPRAYER DR ARCHER NEW ORDER FOR HYDRALAZINE 25 MG P.O Q6HRS ORDER NOTED AND SVETA OUT.
[2023-02-25] MEDS: *INSULIN REGULAR(HUMULIN R)HUM 100 UNIT/ML VIAL SQ PRN (21:46)
[2023-02-26 01:51] VITALS: BP 191/96
[2023-02-26] MEDS ORDERED: CLONIDINE HCL 0.1 MG TABLET PO PRN (03:00)
--- NOTE | 2023-02-26 03:15 | NUR ---
RN NOTE PTS SBP [address] ARCHER RECEIVED ORDER FOR CLONIDINE 0.1MG Q8HR PRN ORDER NOTED AND CARRIED OUT.
[2023-02-26 04:00] VITALS: BP 120/65
--- NOTE | 2023-02-26 06:37 | NUR ---
RN CLOSING NOTE PT IS SLEEPING IN BED, AROUSABLE, A/O X3. PT IS ON RA, TOLERATED WELL. NO S/S OF DISTRESS, PAIN NOR SOB. PATIENT TOOK ALL OF HIS MEDS DURING THE SHIFT BUT CONTINUOUS TO REFUSED TO WEAR EXTERNAL EXTRUSION DIE TEMPLATE MAKER. MD AWARE. PATIENT REEDUCATED ON BENEFITS AND RISKS BUT STILL REFUSED X3. IV ACCESS AT HIS R WRIST, #20G, SL. SAFETY MEASURES IN PLACED, BED IN LOWEST AND LOCKED POSITION; BED ALARM ON; SIDE RAILS X 3; CALL LIGHT AND TABLE WITHIN REACH. WILL ENDORSE CARE TO DAY SHIFT NURSE FOR JORGE.
[2023-02-26 07:00] VITALS: BP 147/75
--- NOTE | 2023-02-26 07:10 | NUR ---
RN OPENING NOTE RECEIVED PATIENT AWAKE, A/O X3. PT IS ON ROOM AIR, TOLERATING WELL. NO SOB NOTED, BREATHING EVEN AND UNLABORED. ON TELE MONITORING BUT PATIENT IS REFUSING. DENIES ANY PAIN AT THIS TIME. WITH IV ACCESS AT HIS R WRIST, #20G, SL. WITH R CHEST WALL HD ACCESS. SAFETY MEASURES PUT IN PLACE, BED IN LOWEST AND LOCKED POSITION; BED ALARM ON; SIDE RAILS X 3; CALL LIGHT AND TABLE WITHIN EASY REACH. WILL CONTINUE WITH PLAN OF CARE.
[2023-02-26] MEDS: PANTOPRAZOLE 40 MG TABLET.DR PO SCH (07:30)
[2023-02-26] MEDS: BLOOD SUGAR DIAGNOSTIC 1 EACH STRIP VI SCH ×5 (07:53→21:47)
[2023-02-26] MEDS: SEVELAMER CARBONATE 800 MG TABLET PO SCH ×3 (08:00→17:39)
[2023-02-26] MEDS: ESCITALOPRAM OXALATE (10 MG) 10 MG TABLET PO SCH (09:00)
[2023-02-26] MEDS: LABETALOL HCL (100MG) 100 MG TABLET PO SCH ×2 (09:00→17:00)
[2023-02-26] MEDS: LACTOBACILLUS RHAMNOSUS GG 1 EACH CAP.SPRINK PO SCH ×2 (09:00→17:00)
[2023-02-26] MEDS: BRIMONIDINE TARTRATE OPHT SOLN 5 ML BOTTLE RIGHTEYE SCH ×3 (09:00→17:00)
[2023-02-26] MEDS: CHOLECALCIFEROL 1,000 UNIT TABLET (VIT D3) PO SCH (09:00)
[2023-02-26] MEDS: AMLODIPINE BESYLATE 10 MG TABLET PO SCH (09:00)
--- NOTE | 2023-02-26 12:26 | NUR ---
OPERATOR NOTE SEEN BY DR SONI, PATIENT REFUSED TO SPEAK WITH MD. PATIENT REMAINS TO BE NON COMPLIANT WITH MEDICATIONS, BLOOD DRAW AND CARE. SAFETY MEASURES ENSURED. IN STABLE CONDITION.
--- NOTE | 2023-02-26 15:35 | NUR ---
OUTSIDE LABORER NOTE NOTIFIED HD NURSE OF MD ORDER FOR HEMODIALYSIS. NURSE STILL HAVE EMERGENCY HD, WILL DIALYSE PATIENT ONCE AVAILABLE. CHARGE NURSE AND TEACHING ASSOCIATE NOTIFIED.
[2023-02-26 16:00] VITALS: BP 169/81
--- NOTE | 2023-02-26 18:51 | NUR ---
ANALYSIS CONSULTANT CLOSING NOTE PATIENT AWAKE, A/O X3. PT IS ON ROOM AIR, TOLERATED WELL. NO SOB NOTED, BREATHING EVEN AND UNLABORED. ON TELE MONITORING BUT PATIENT IS REFUSING. DENIES ANY PAIN AT THIS TIME. WITH IV ACCESS AT HIS R WRIST, #20G, SL. WITH R CW HD ACCESS. FOR DISCHARGE AFTER HEMODIALYSIS ORDERED. PATIENT REFUSED ALL PO MEDICATIONS, MD AWARE. ALL NURSING NEEDS ATTENDED. SAFETY MEASURES IN PLACED, BED IN LOWEST AND LOCKED POSITION; BED ALARM ON; SIDE RAILS X 3; CALL LIGHT AND TABLE WITHIN EASY REACH. WILL ENDORSE TO INDUSTRIAL PAINTER NURSE FOR CONTINUITY OF CARE.
--- NOTE | 2023-02-26 19:35 | NUR ---
FOOD AND BEVERAGE COORDINATOR NOTES TELE ON STANDBY,LYING ON BED,SLEEPING WITH BLANKET COVERING HIM,AROUSABLE TO VERBAL STIMULI,BREATHING REGULAR,NOT ANYI [place] FORM OF DISTRESS,REFUSED BODY CHECK,WITH RIGHT WRIST SALINE LOCK INTACT AND PATENT.RIGHT CW CATH FOR HD ACCESS,HD MACHINE AT BEDSIDE,ON STANDBY,HD TECH WAS CALLED TO [facility].WILL COMEBACK TO DO HD TREATMENT,IF NOT TODAY,IT WILL BE DONE TOMORROW.WILL CONTINUE TO MONITOR,CALL LIGHT IN REACH,NEEDS ANTICIPATED.
[2023-02-26] MEDS: MUPIROCIN OINT 2% 22 GM TUBE TP SCH ×3 (20:44→21:36)
[2023-02-26] MEDS: ATORVASTATIN 40 MG TABLET PO SCH ×2 (21:19→21:36)
[2023-02-26] MEDS: LATANOPROST EYE DROP 0.005% 2.5 ML BOTTLE RIGHTEYE SCH ×2 (21:20→21:47)
[2023-02-26] MEDS: INSULIN GLARGINE, 100 UNIT/ML CARTRIDGE SQ SCH ×2 (21:20→21:48)
--- NOTE | 2023-02-26 21:45 | NUR ---
BENCH PRESS OPERATOR NOTES ACCU-CHECK BLOOD SUGAR CHECK 153MG/DL,COVERED WITH HUMULIN R 2UNITS ALONG WITH LANTUS 10UNITS SCHEDULED.SNACKS PROVIDED AT BEDSIDE.
[2023-02-26] MEDS: *INSULIN REGULAR(HUMULIN R)HUM 100 UNIT/ML VIAL SQ PRN (21:50)
--- NOTE | 2023-02-26 22:00 | NUR ---
EXCEPTIONAL CHILDREN TEACHER ASSISTANT NOTES REFUSED XALATAN EYEDROPS ON HER RIGHT EYE.
--- NOTE | 2023-02-27 00:16 | NUR ---
CHARGE NURSE NOTES Patient been refusing his tele monitor . Explained the importance of having tele monitor but still refused. Got an order from Dr. De La Paz to D/C the tele since pt has refusing, order noted and carried out
--- NOTE | 2023-02-27 05:30 | NUR ---
MS RN NOTES ACCU-CHECK BLOOD SUGAR CHECK 169,COVERED WITH HUMULIN R 3 UNITS PER SLIDING SCALE.
[2023-02-27] MEDS: BLOOD SUGAR DIAGNOSTIC 1 EACH STRIP VI SCH ×2 (06:00→11:19)
[2023-02-27] MEDS: INSULIN REGULAR, HUMAN 100 UNIT/ML 3 ML VIAL SQ PRN (06:12)
--- NOTE | 2023-02-27 07:01 | NUR ---
MS RN NOTES TELE MONITOR REFUSED,DISCONTINUED BY DR ARCHER.SLEPT WITH INTERVAL,HD TREATMENT TOLERATED WELL.DISCHARGE PLANNING AWAITING FOR PLACEMENT.HAD 3X NON WATERY,NON FOUL SMELL STOOL.NO DISTRESS.WILL ENDORSE TO DAY NURSE FOR JORGE.
--- NOTE | 2023-02-27 07:27 | NUR ---
INFORMATION SYSTEMS SECURITY ANALYST OPENING NOTE Received pt in bed, awake. A/O x 3, able to make needs known. No c/o pain/discomfort at this time. On room air, tolerating well. IV access in the right wrist #20g, sl. HD cath in right chest wall, c/d/i. Safety measures implemented: bed in lowest locked position, side rails up x 3, call light and tray table within easy reach. Will continue to monitor.
[2023-02-27] MEDS: PANTOPRAZOLE 40 MG TABLET.DR PO SCH (07:30)
[2023-02-27] MEDS: SEVELAMER CARBONATE 800 MG TABLET PO SCH ×2 (08:00→12:11)
[2023-02-27 08:29] VITALS: BP 156/91
[2023-02-27] MEDS: ESCITALOPRAM OXALATE (10 MG) 10 MG TABLET PO SCH (08:52)
[2023-02-27] MEDS: LACTOBACILLUS RHAMNOSUS GG 1 EACH CAP.SPRINK PO SCH (08:52)
[2023-02-27 08:53] VITALS: BP 156/91
[2023-02-27] MEDS: AMLODIPINE BESYLATE 10 MG TABLET PO SCH (08:53)
[2023-02-27] MEDS: LABETALOL HCL (100MG) 100 MG TABLET PO SCH (08:53)
[2023-02-27] MEDS: BRIMONIDINE TARTRATE OPHT SOLN 5 ML BOTTLE RIGHTEYE SCH ×2 (08:54→12:11)
[2023-02-27] MEDS: CHOLECALCIFEROL 1,000 UNIT TABLET (VIT D3) PO SCH (08:54)
[2023-02-27] MEDS: MUPIROCIN OINT 2% 22 GM TUBE TP SCH (08:54)
--- NOTE | 2023-02-27 08:54 | NUR ---
RN NOTES Patient refused his 0730 and 0900 due meds despite teaching the benefits and the need to take his medications. Will continue to monitor.
--- NOTE | 2023-02-27 14:59 | NUR ---
WELDING SETTER NOTE Patient discharged to [facility] in a stable condition. A/O x 3, on room air tolerating well. No c/o pain/discomfort at this time. IV access removed, dry dressing applied on site. Patient refused photo to be taken on skin issues. HD cath in right chest wall, c/d/i. All belongings accounted for. Report given to Shana MAYBERRY, verbalized understanding. Md and Charge Nurse aware of discharge. Pt left the unit at 1455 via gurney accompanied by 2 food service director.
[2023-03-02] MEDS ORDERED: SODIUM POLYSTYRENE SULFONATE 15 G/60 ML BOTTLE PO SCH (08:29)
== END 2023-02-27 15:30 | DRG 425 ==
LOC: ER 20:55 → TELE 23:54 → MED 02-27 04:36
PROVIDERS: ADMIT Nurse Practitioner Acute Care; ATTEND Nurse Practitioner Acute Care
PROC: 5A1D70Z Performance of Urinary Filtration, Intermittent, Less than 6 Hours Per Day (ICD-10-PCS; principal; 2023-02-24)
DX: E87.70 Fluid overload, unspecified (principal); I13.2 Hypertensive heart and chronic kidney disease with heart failure and with stage 5 chronic kidney disease, or end stage renal disease; R64 Cachexia; N18.6 End stage renal disease; D63.1 Anemia in chronic kidney disease; J90 Pleural effusion, not elsewhere classified; E11.22 Type 2 diabetes mellitus with diabetic chronic kidney disease; E87.5 Hyperkalemia; Z99.2 Dependence on renal dialysis; Z20.822 Contact with and (suspected) exposure to COVID-19; E78.5 Hyperlipidemia, unspecified; H54.7 Unspecified visual loss; Z79.4 Long term (current) use of insulin; Z79.51 Long term (current) use of inhaled steroids; Z79.899 Other long term (current) drug therapy; I50.9 Heart failure, unspecified; M89.8X9 Other specified disorders of bone, unspecified site; Z86.73 Personal history of transient ischemic attack (TIA), and cerebral infarction without residual deficits; R94.6 Abnormal results of thyroid function studies; S00.83XA Contusion of other part of head, initial encounter; Y92.9 Unspecified place or not applicable; W19.XXXA Unspecified fall, initial encounter; Z91.199 Patient's noncompliance with other medical treatment and regimen due to unspecified reason
CPT/HCPCS: 36415; 70450-TC; 70486-TC; 71045-TC; 80053-TC; 80061-TC; 82962-TC; 83735-TC; 84100-TC; 84439-TC; 84443-TC; 84484-TC; 85025-TC; 87081-TC; 90935-TC; C9803; G0378; J1815

== ENCOUNTER 2023-03-04 11:28 | Inpatient (IN) | payer OTHER ==
[~2023-03-04] VITALS: Ht 162.6 cm; Wt 42.2 kg
--- NOTE | 2023-03-04 11:35 | NUR ---
RECEIVED PT 52 YRS MALE TRANSFER FROM SNF BY [facility] FOR UNCOOPRATVE AND REFUSED TREAMENT
--- NOTE | 2023-03-04 11:36 | NUR ---
PERM CATHETER ON RT SUBCALVIN INTACT AND INPLACE
--- NOTE | 2023-03-04 12:01 | NUR ---
AT BED SIDE SEEN PT
--- NOTE | 2023-03-04 12:20 | NUR ---
INSERTED ANGO CATHETER G 20 ON LT AC BLOOD DROW AND SENT TO LAB BLOOD CULURE X 2 SENT
[2023-03-04] MEDS ORDERED: ONDANSETRON HCL/PF 4 MG/2 ML VIAL IVP ONE (12:30)
[2023-03-04] MEDS ORDERED: IV NS 0.9% 1,000 ML BAG IV ONE (12:30)
[2023-03-04] MEDS ORDERED: ONDANSETRON HCL/PF 4 MG/2 ML VIAL ONE (12:30)
[2023-03-04 12:40] LABS: BASOPHILS # (AUTO) 0.1 K/uL (0.0-0.2); BASOPHILS % (AUTO) 1.4 % (0.0-2.0); EOSINOPHILS % (AUTO) 3.1 % (0.0-6.0); HEMATOCRIT 30 % (39-51); HEMOGLOBIN 9.4 g/dL (13.5-17.5); LYMPHOCYTES # (AUTO) 0.6 K/uL (0.8-4.8); LYMPHOCYTES % (AUTO) 11.3 % (20.0-44.0); MEAN CORPUSCULAR HGB CONC 32 g/dl (31.0-36.0); MEAN CORPUSCULAR VOLUME 82 fL (80-96); MONOCYTES # (AUTO) 0.5 K/uL (0.1-1.30); MONOCYTES % (AUTO) 9.1 % (2.0-12.0); NEUTROPHILS # (AUTO) 3.9 K/uL (1.8-8.9); NEUTROPHILS % (AUTO) 75.1 % (43.0-81.0); PLATELET COUNT (AUTO) 137 K/uL (150-450); RED BLOOD CELL COUNT(AUTO) 3.61 MIL/uL (4.5-6.0); WHITE BLOOD COUNT (AUTO) 5.2 K/uL (4.3-11.0)
[2023-03-04 12:49] LABS: CALCIUM, SERUM 9.6 mg/dL (8.5-10.1); CARBON DIOXIDE 23 mmol/L (21-32); CHLORIDE 100 mmol/L (98-107); GLUCOSE 141 mg/dL (74-106); POTASSIUM 4.9 mmol/L (3.5-5.1); SODIUM SERUM 140 mmol/L (136-145)
[2023-03-04 12:50] LABS: UREA NITROGEN, BLOOD 94 mg/dL (7-18)
[2023-03-04 12:51] LABS: CREATININE 9.5 mg/dL (0.6-1.3)
[2023-03-04 12:54] LABS: ALANINE AMINOTRANSFERASE 9 U/L (12-78); ALBUMIN 3.4 g/dL (3.4-5.0); ALKALINE PHOSPHATASE 96 U/L (46-116); ASPARTATE AMINOTRANSFERASE 9 U/L (15-37); BILIRUBIN,DIRECT 0.2 mg/dL (0.0-0.2); BILIRUBIN,TOTAL 0.9 mg/dL (0.2-1.0); TOTAL PROTEIN, SERUM 7.8 g/dL (6.4-8.2)
--- NOTE | 2023-03-04 12:55 | NUR ---
CRITICAL LAB: [facility] 9.5 MADE AWARE.
[2023-03-04] MEDS ORDERED: NUT.237L67 PO (13:15)
[2023-03-04] MEDS ORDERED: CLON0.1T PO (13:15)
--- NOTE | 2023-03-04 13:50 | NUR ---
COVED SWAB SENT TO LAB
[2023-03-04] MEDS ORDERED: DEXTROSE 50%-WATER 50 ML DISP.SYRIN IV PRN (14:00)
[2023-03-04] MEDS ORDERED: MAG HYDROX/AL HYDROX/SIMETH 30 ML UDC PO PRN ×2 (14:00)
[2023-03-04] MEDS ORDERED: Z GUARD REMEDY 4 OZ OINT TP PRN (14:00)
[2023-03-04] MEDS ORDERED: MAGNESIUM HYDROXIDE 30 ML UDC PO PRN ×2 (14:00)
[2023-03-04] MEDS ORDERED: CLONIDINE HCL 0.1 MG TABLET PO PRN (14:00)
[2023-03-04] MEDS ORDERED: ACETAMINOPHEN 325 MG TABLET PO PRN (14:00)
[2023-03-04] MEDS ORDERED: *INSULIN REGULAR(HUMULIN R)HUM 100 UNIT/ML VIAL SQ PRN (14:00)
[2023-03-04] MEDS ORDERED: ONDANSETRON HCL/PF 4 MG/2 ML VIAL IVP PRN (14:00)
[2023-03-04] MEDS ORDERED: CLONIDINE HCL 0.1 MG TABLET ONE (14:59)
[2023-03-04] MEDS: CLONIDINE HCL 0.1 MG TABLET PO PRN ×2 (15:00→22:02)
--- NOTE | 2023-03-04 15:00 | NUR ---
BP [id number] HR 87 B/MIN CLONIDINE 0.1 MG PO GIVEN
--- NOTE | 2023-03-04 15:01 | NUR ---
bp 187/117
--- NOTE | 2023-03-04 15:32 | NUR ---
BED GIVEN 314-1
--- NOTE | 2023-03-04 15:45 | NUR ---
PT HAD BM MOD AMT excorited in [facility]
--- NOTE | 2023-03-04 16:08 | NUR ---
BP 174/91 [facility] HR 87 B/MIN
--- NOTE | 2023-03-04 16:15 | NUR ---
HAND OFF ROBERTO Carmichael RN TO ROOM 314-1 VIA GARMARLEE STABLE CONDITION NO PAIN
--- NOTE | 2023-03-04 16:30 | NUR ---
ADMISSION NOTE PATIENT RECEIVED FROM THE ER VIA GURNEY ACCOMPANIED BY ER STAFF. A/ O X4. PATIENT ORIENTED TO ROOM AND HOW TO USE THE CALL LIGHT. ON ROOM AIR WITH NO S/S OF SOB OR DISTRESS. PATENT REFUSED SKIN ASSESSMENT AND TELE EXTERNAL MONITOR. EXPLAINED TO PATIENT THE IMPORTANCE OF FOLLOWING REGIME CARE, PATIENT CONTINUED TO REFUSE. NO VITALS WERE OBTAINED, PATENT REFUSED. SAFETY PRECAUTION PLACED BED LOCKED AND AT THE LOWEST POSITION, SRx2, CALL LIGHT WITHIN REACH.
[2023-03-04] MEDS: LABETALOL HCL (100MG) 100 MG TABLET PO SCH (17:00)
[2023-03-04] MEDS: ACIDOPHILUS/BULGARICUS 1 EACH TAB.CHEW PO SCH (17:00)
[2023-03-04] MEDS: NEPRO VAN 237 ML CAN PO SCH (17:00)
[2023-03-04] MEDS: BRIMONIDINE TARTRATE OPHT SOLN 5 ML BOTTLE OP SCH (17:00)
[2023-03-04] MEDS: BLOOD SUGAR DIAGNOSTIC 1 EACH STRIP VI SCH ×2 (17:30→22:00)
--- NOTE | 2023-03-04 17:59 | NUR ---
MEDICATION NOTE PATIENT REFUSED MEDICATION AND BG CHECK. EDUCATED PATIENT ON THE IMPORTANCE OF REGIME OF CARE, SEVERAL ATTEMPTS WERE MADE. PATIENT SAID:" I KNOW" AND CONTINUED TO REFUSE.
--- NOTE | 2023-03-04 19:25 | NUR ---
CLOSING NOTE PATIENT RESTING IN BED AWAKE, A/O X4. ON ROOM AIR WITH NO S/S OF SOB OR DISTRESS. PATIENT IS NONCOMPLIANT WITH CARE THOUGHT SHIFT. PATIENT REFUSED SKIN, LUNGS, AND BOWEL SOUNDS ASSESSMENT. NO S/S OF PAIN AT THIS TIME. SAFETY PRECAUTION MAINTAINED: BED LOCKED AND AT THE LOWEST POSITION, SRx2, CALL LIGHT WITHIN REACH.
--- NOTE | 2023-03-04 19:30 | NUR ---
SENIOR OCCUPATIONAL THERAPIST OPENING NOTE RECEIVED PATIENT RESTING IN BED, EASILY AROUSED. A/O X4, NON-COMPLIANT WITH ASSESSMENTS AND REFUSING PLACEMENT OF TRANSPORTATION MECHANIC. ON RA WITH NO S/S OF SOB OR DISTRESS. SAFETY PRECAUTION IN PLACE: BED LOCKED AND AT THE LOWEST POSITION, SIDERAILS UP X2, CALL LIGHT AND TRAY TABLE WITHIN REACH. WILL CONTINUE TO MONITOR AND ASSIST.
[2023-03-04 20:00] VITALS: BP 184/104
[2023-03-04] MEDS: ATORVASTATIN 40 MG TABLET PO SCH (22:00)
[2023-03-04] MEDS: LATANOPROST EYE DROP 0.005% 2.5 ML BOTTLE RIGHTEYE SCH (22:00)
[2023-03-04] MEDS: INSULIN GLARGINE, 100 UNIT/ML CARTRIDGE SQ SCH (22:00)
--- NOTE | 2023-03-04 22:00 | NUR ---
RN NOTE PT REFUSED BLOOD SUGAR CHECKS AND MEDICATIONS DUE FOR TONIGHT, EVEN THE PRN BLOOD PRESSURE MED. EXPLAINED TO PT THAT BP IS TOO HIGH AT 184/104 AND THE NEED FOR MANAGEMENT, PT REFUSED ANYWAY. PT STATES NOT WANTING TO BE BOTHERED.
--- NOTE | 2023-03-04 23:23 | NUR ---
RN NOTE BETTINA MAYBERRY (DIALYSIS NURSE) CALLED ASKING IF PT WILL CONSENT FOR HEMODIALYSIS TONIGHT AT 0000. PATIENT REFUSED. EXPLAINED RISKS/BENEFITS, PT REFUSED AND DOES NOT WANT TO BE BOTHERED. BETTINA MAYBERRY WAS INFORMED OF REFUSAL AND MENTIONED THAT WE WILL TRY AGAIN IN THE AM.
[2023-03-05] VITALS: BP 176/97
--- NOTE | 2023-03-05 02:00 | NUR ---
RN NOTE PT AGREED TO UNDERGO HEMODIALYSIS (POSSIBLY AROUND 5AM PER HD NURSE) AT THIS MOMENT AND SIGNED CONSENT. BP 176/97 AT THIS TIME, ASKED PT IF HE'S WILLING TO TAKE PRN CLONIDINE AND AGREED TO TAKE IT. CONSULTED WITH HOSPITALIST MELBA GALLAGHER IF THIS PRN BP MED NEEDS TO BE HELD DUE TO POSSIBLE HEMODIALYSIS THIS AM AND THAT DUE TO HISTORY OF NON-COMPLIANCE, PT MAY CHANGE HIS MIND AND REFUSE HD LATER ANYWAY. HOSPITALIST SAID OKAY TO GIVE THE PRN BP MED AT THIS TIME. GIVEN MED ORDERED.
[2023-03-05] MEDS: CLONIDINE HCL 0.1 MG TABLET PO PRN (02:54)
--- NOTE | 2023-03-05 03:15 | NUR ---
RN NOTE SACRAL REDNESS AND ABRASION ON R LEG NOTED ON PT WHILE BEING CHANGED. ASKED IF PICTURES CAN BE TAKEN OF SKIN ISSUES BUT ONLY AGREED TO THE ONE ON THE LEG, REFUSED THE ONE FOR THE SACRUM. PT ALSO REFUSING FOR MRSA SWAB SAMPLE TO BE TAKEN.
--- NOTE | 2023-03-05 04:00 | NUR ---
RN NOTE PT REFUSED VITAL SIGNS CHECK FOR 0400.
[2023-03-05] MEDS: BLOOD SUGAR DIAGNOSTIC 1 EACH STRIP VI SCH ×4 (07:08→21:27)
[2023-03-05] MEDS: INSULIN REGULAR, HUMAN 100 UNIT/ML 3 ML VIAL SQ PRN ×3 (07:09→21:27)
--- NOTE | 2023-03-05 07:09 | NUR ---
RN NOTE PT BLOOD GLUCOSE 140. INSULIN HELD DUE TO HEMODIALYSIS STILL ONGOING AND PT JUST ATE PUDDING.
--- NOTE | 2023-03-05 07:30 | NUR ---
PROPERTY FIELD ADJUSTER CLOSING NOTE PATIENT AWAKE IN BED, WATCHING TV AT THIS TIME. A/O X4, NON-COMPLIANT WITH ASSESSMENTS/MEDS AND REFUSING PLACEMENT OF LIFE SCIENTIST. STABLE ON RA WITH NO S/S OF SOB OR DISTRESS. S/P HD THIS AM, 2L OUTPUT. ALL CARE PROVIDED. SAFETY PRECAUTION MAINTAINED: BED LOCKED AND AT THE LOWEST POSITION, SIDERAILS UP X2, CALL LIGHT AND TRAY TABLE WITHIN REACH. WILL ENDORSE JORGE TO DAY SHIFT NURSE.
--- NOTE | 2023-03-05 07:50 | NUR ---
ICT SECURITY SPECIALIST Opening Note Patient in bed, awake, on RA, A/O x3 non-compliant, refuses tele monitoring on him. IV access at LAC #20G. Safety precaution in place, bed low, locked, side rails up x2, call light at reach. Will continue to monitor patient.
[2023-03-05 08:00] VITALS: BP 158/89
--- NOTE | 2023-03-05 08:53 | NUR ---
WOUND CARE CONSULT: LIMITED ASSESSMENT DUE TO PT UNCOOPERATIVE AT TIMES. RT LOWER LEG DRY ABRASIONS NOTED WELL SACRAL SCARRING (VERY BONY AREA) AND REDNESS/RASH TO BUTTOCKS, ALL PRESENT ON ADMISSION. RECOMMENDATIONS MADE FOR SKIN PROTECTION. DISCUSSED WITH NURSING STAFF. IN AGREEMENT WITH PLAN O F CARE. Addendum: 03/05/23 at 0854 by SONIA GEE WNDNU Amended: Links added.
--- NOTE | 2023-03-05 09:00 | NUR ---
IRRIGATION MANAGER Note Patient refused med x3 before taking med.
[2023-03-05] MEDS: BRIMONIDINE TARTRATE OPHT SOLN 5 ML BOTTLE OP SCH ×3 (09:45→16:54)
[2023-03-05] MEDS: LABETALOL HCL (100MG) 100 MG TABLET PO SCH ×2 (09:46→16:58)
[2023-03-05] MEDS: ACIDOPHILUS/BULGARICUS 1 EACH TAB.CHEW PO SCH ×2 (09:46→16:54)
[2023-03-05] MEDS: AMLODIPINE BESYLATE 10 MG TABLET PO SCH (09:46)
[2023-03-05] MEDS: ESCITALOPRAM OXALATE (10 MG) 10 MG TABLET PO SCH (09:46)
[2023-03-05] MEDS: CHOLECALCIFEROL 1,000 UNIT TABLET (VIT D3) PO SCH (09:47)
[2023-03-05] MEDS: CLOTRIMAZOLE 1% 15 GM TUBE TP SCH ×2 (11:46→16:54)
[2023-03-05] MEDS: NEPRO VAN 237 ML CAN PO SCH ×3 (11:48→17:00)
[2023-03-05] MEDS: LOPERAMIDE HCL (2 MG CAP) 2 MG CAPSULE PO PRN ×2 (12:40→18:07)
[2023-03-05 16:00] VITALS: BP 133/46
--- NOTE | 2023-03-05 18:09 | NUR ---
MIXER WET POUR Note Hold Nepro due to loose stool
--- NOTE | 2023-03-05 18:45 | NUR ---
SALES AND MARKETING ENGINEER Closing Note Patient in bed, awake, A/O x3 non-compliant, refused tele monitoring. On RA, no s/s of distress/SOB/pain. IV access LC #20G, in place, patent, no s/s of infiltration/infection. Kept patient dry, clean, comfortable. Safety measure in place, bed in low, locked, side rails up x2, bed alarm on, call light at reach, bedside table at reach. Will endorse to the next shift nurse. .
--- NOTE | 2023-03-05 19:32 | NUR ---
RN OPENING NOTE PATIENT ASLEEP IN ROOM. A/OX3. NO S/S OF DISTRESS, BREATHING WITHOUT DIFFICULTY ON ROOM AIR. LAC #20 SL INTACT AND PATENT. SAFETY MEASURES IN PLACE: BED LOCKED AND AT LOWEST POSITION, RAILS UP X2, CALL CASTELLANOS WITHIN REACH. WILL CONTINUE TO MONITOR PATIENT. Addendum: 03/05/23 at 1934 by MARIANA BHATIA RN PT IS ADMITTED UNDER TELEMETRY, BUT PATIENT HAS BEEN REFUSING TO WEAR TELE MONITOR DURING DAY SHIFT WAS ENDORSED TO ME FROM DAY SHIFT NURSE. PATIENT ENCOURAGED TO WEAR, BUT HAS INSISTED ON DECLINING TO WEAR MONITOR. PATIENT IS WELL KNOWN TO UNIT. WILL CONTINUE TO STRONGLY ENCOURAGE PATIENT WELL GIVE PATIENT EDUCATION.
[2023-03-05 20:00] VITALS: BP 101/59
[2023-03-05] MEDS: ATORVASTATIN 40 MG TABLET PO SCH ×2 (21:25→21:31)
[2023-03-05] MEDS: LATANOPROST EYE DROP 0.005% 2.5 ML BOTTLE RIGHTEYE SCH ×2 (21:25→21:31)
[2023-03-05] MEDS: INSULIN GLARGINE, 100 UNIT/ML CARTRIDGE SQ SCH (21:27)
[2023-03-06] VITALS: BP 124/66
[2023-03-06 04:00] VITALS: BP 126/74
[2023-03-06 06:17] LABS: BASOPHILS % (AUTO) 0.8 % (0.0-2.0); EOSINOPHILS % (AUTO) 3.7 % (0.0-6.0); HEMATOCRIT 27 % (39-51); HEMOGLOBIN 8.5 g/dL (13.5-17.5); LYMPHOCYTES # (AUTO) 0.6 K/uL (0.8-4.8); MEAN CORPUSCULAR HGB CONC 32 g/dl (31.0-36.0); MEAN CORPUSCULAR VOLUME 84 fL (80-96); MONOCYTES # (AUTO) 0.5 K/uL (0.1-1.30); MONOCYTES % (AUTO) 11.4 % (2.0-12.0); NEUTROPHILS # (AUTO) 3.2 K/uL (1.8-8.9); NEUTROPHILS % (AUTO) 71.1 % (43.0-81.0); PLATELET COUNT (AUTO) 124 K/uL (150-450); RED BLOOD CELL COUNT(AUTO) 3.22 MIL/uL (4.5-6.0); WHITE BLOOD COUNT (AUTO) 4.5 K/uL (4.3-11.0)
[2023-03-06] MEDS: BLOOD SUGAR DIAGNOSTIC 1 EACH STRIP VI SCH ×4 (06:44→22:00)
[2023-03-06] MEDS: INSULIN REGULAR, HUMAN 100 UNIT/ML 3 ML VIAL SQ PRN ×2 (06:45→13:00)
--- NOTE | 2023-03-06 06:56 | NUR ---
RN CLOSING NOTE PATIENT ASLEEP IN BED. A/OX3. NO S/S OF DISTRESS, BREATHING WITHOUT DIFFICULTY ON ROOM AIR. LAC #20 SL INTACT AND PATENT. PATIENT CONTINUES TO DECLINE TELE MONITOR, SOME MEDS, AND BLOOD DRAW. SAFETY MEASURES IN PLACE: BED LOCKED AND AT LOWEST POSITION, RAILS UP X2, CALL CASTELLANOS WITHIN REACH. WILL ENDORSE TO NEXT SHIFT FOR JORGE.
[2023-03-06 07:00] VITALS: BP 134/68
[2023-03-06 07:01] LABS: CALCIUM, SERUM 8.6 mg/dL (8.5-10.1); POTASSIUM 4.7 mmol/L (3.5-5.1)
--- NOTE | 2023-03-06 07:50 | NUR ---
PORCELAIN TURNER Opening Note Patient sitting at bedside, awake, A/O x3, on RA. IV at LAC #20 SL, refused tele monitoring. Consult and redirect patients frequently per patient calling. Safety measures in place, bed low, locked, rails up x2, call light at reach. Will continue to monitor patient.
[2023-03-06] MEDS: BRIMONIDINE TARTRATE OPHT SOLN 5 ML BOTTLE OP SCH ×3 (08:08→17:00)
[2023-03-06] MEDS: CHOLECALCIFEROL 1,000 UNIT TABLET (VIT D3) PO SCH (08:08)
[2023-03-06] MEDS: ESCITALOPRAM OXALATE (10 MG) 10 MG TABLET PO SCH (08:08)
[2023-03-06] MEDS: LABETALOL HCL (100MG) 100 MG TABLET PO SCH ×2 (08:09→17:05)
[2023-03-06] MEDS: AMLODIPINE BESYLATE 10 MG TABLET PO SCH ×2 (08:10→08:12)
[2023-03-06] MEDS: CLOTRIMAZOLE 1% 15 GM TUBE TP SCH ×2 (08:10→17:00)
[2023-03-06] MEDS: NEPRO VAN 237 ML CAN PO SCH ×3 (08:17→17:12)
[2023-03-06] MEDS: ACIDOPHILUS/BULGARICUS 1 EACH TAB.CHEW PO SCH ×2 (08:46→17:13)
[2023-03-06 16:00] VITALS: BP 111/54
--- NOTE | 2023-03-06 17:00 | NUR ---
PERMIT SPECIALIST Note Retake patient BP: 139/72, P:69 before giving med.
--- NOTE | 2023-03-06 19:27 | NUR ---
GUN MECHANIC Closing Note Patient sitting at bedside, awake, A/O x3, on RA, no s/s of distress/SOB/pain. IV at LFA #20 SL, in place, patent, no s/s of infiltration/infection. Refused tele monitoring. Consult and redirect patients frequently per patient calling. Safety measures in place, bed low, locked, rails up x2, call light at reach. Will endorse to the next shift nurse to continue to monitor patient.
--- NOTE | 2023-03-06 19:30 | NUR ---
noc rn opening note received patient sitting at the edge of bed, dinner tray untouched. asking for pudding and milk. patient refusing heart monitor box. denies pain at this time. no s/s of apparent distress in room air. patient has RCW permacath intact. L.AC #20g on saline lock. needs attended for now. safety in place-- bed in lowest, locked position, call light within reach, side rails up X3. will continue with patient's plan of care.
--- NOTE | 2023-03-06 19:59 | NUR ---
noc rn note Patient refusing BP check. Initial BP that COLLECTION SYSTEMS FOREMAN gave me 91/21, attempted to personally check again and patient refused. and per patient "NO, not now. I'm tired right now" will try again when patient permits. Risk and benefits explained. Patient passive about teaching.
--- NOTE | 2023-03-06 21:09 | NUR ---
noc rn note BP re-check BP 123/66 HR 65.
[2023-03-06 21:10] VITALS: BP 123/66
[2023-03-06] MEDS: LATANOPROST EYE DROP 0.005% 2.5 ML BOTTLE RIGHTEYE SCH (22:00)
[2023-03-06] MEDS: ATORVASTATIN 40 MG TABLET PO SCH (22:00)
[2023-03-06] MEDS: INSULIN GLARGINE, 100 UNIT/ML CARTRIDGE SQ SCH (22:00)
[2023-03-07] VITALS: BP 127/66
--- NOTE | 2023-03-07 05:45 | NUR ---
MRSA SWAB OBTAINED AT THIS TIME. AWAITING PICK-UP.
[2023-03-07] MEDS: ACETAMINOPHEN 325 MG TABLET PO PRN ×2 (05:47→05:52)
[2023-03-07] MEDS: ONDANSETRON 4 MG TAB.RAPDIS PO PRN (05:52)
--- NOTE | 2023-03-07 05:55 | NUR ---
otis rn note- [facility] RETURN Patient was c/o shoulder pain when I passed by, and told patient he only has Tylenol for pain and if he wants it, he said yes he will take. When I returned with the open tabs of Tylenol he complained of Nausea and I got zofran 4mg tab in the [facility]. Asked patient if he wants to take it and patient refused and also refused Tylenol. Open Tab of tylenol 650mg wasted on proper wasting bin and unopened tab of Zofran 4mg tab returned in [facility]. Patient refuses any non-pharmacological interventions offered at this time. will monitor.
--- NOTE | 2023-03-07 05:58 | NUR ---
noc rn note Patient refused blood draw. order will be cancelled by lab.
[2023-03-07] MEDS: BLOOD SUGAR DIAGNOSTIC 1 EACH STRIP VI SCH ×4 (06:44→21:58)
[2023-03-07] MEDS: INSULIN REGULAR, HUMAN 100 UNIT/ML 3 ML VIAL SQ PRN ×3 (06:44→22:02)
--- NOTE | 2023-03-07 06:44 | NUR ---
noc rn note Blood sugar 83mg/dL this am. No coverage needed. Patient has snacks on bed side.
[2023-03-07 07:00] VITALS: BP 139/76
--- NOTE | 2023-03-07 07:18 | NUR ---
noc rn closing patient in bed, remains non-compliant. no s/s of apparent distress on room air. needs attended. patient has discharge order in place. will endorse to morning shift rn for continuity of care.
--- NOTE | 2023-03-07 07:20 | NUR ---
RN OPENING NOTE RECEIVED PATIENT IN BED, ASLEEP. EASILY AWAKENED. NO SIGNS OF ACUTE DISTRESS NOTED. ON ROOM AIR, NO SOB NOTED, BREATHING EVEN AND UNLABORED. NO C/O PAIN AT THIS TIME. WITH IV ACCESS ON LEFT AC #20G, INTACT AND PATENT, SALINE LOCKED. RIGHT CHESTWALL PERMACATH WITH DRESSING C/D/I. SAFETY MEASURE IN PLACE. BED IN LOW AND LOCKED POSITION, SIDE RAILS UP X2, CALL LIGHT PLACED WITHIN EASY REACH. WILL CONTINUE TO MONITOR PATIENT.
--- NOTE | 2023-03-07 08:25 | NUR ---
RN NOTE ALL ORAL MEDICATION REFUSED IN SPITE EXPLANATION OF RISKS AND BENEFITS. WILL CONTINUE TO ENCOURAGE PATIENT TO COMPLY WITH CARE REGIMEN.
[2023-03-07] MEDS: CHOLECALCIFEROL 1,000 UNIT TABLET (VIT D3) PO SCH (08:54)
[2023-03-07] MEDS: ACIDOPHILUS/BULGARICUS 1 EACH TAB.CHEW PO SCH ×2 (08:55→16:38)
[2023-03-07] MEDS: AMLODIPINE BESYLATE 10 MG TABLET PO SCH (08:56)
[2023-03-07] MEDS: LABETALOL HCL (100MG) 100 MG TABLET PO SCH ×2 (08:56→16:38)
[2023-03-07] MEDS: ESCITALOPRAM OXALATE (10 MG) 10 MG TABLET PO SCH (08:56)
[2023-03-07] MEDS: NEPRO VAN 237 ML CAN PO SCH ×3 (08:57→17:00)
[2023-03-07] MEDS: BRIMONIDINE TARTRATE OPHT SOLN 5 ML BOTTLE OP SCH ×3 (09:29→16:38)
[2023-03-07] MEDS: CLOTRIMAZOLE 1% 15 GM TUBE TP SCH ×2 (09:30→16:38)
--- NOTE | 2023-03-07 10:43 | NUR ---
RN NOTE PATIENT C/O NAUSEA. ZOFRAN 4MG IVP GIVEN ORDERED.
--- NOTE | 2023-03-07 10:45 | NUR ---
RN NOTE PATIENT NOTED STICKING HIS FINGERS INSIDE HIS MOUTH, EXPLAINED RISKS/CONSEQUENCES OF DOING THAT. SAID HE WANTED TO VOMIT AND THAT'S GONNA HELP HIM VOMIT. EXPLAINED THAT I ALREADY GAVE MEDICATION ZOFRAN WHICH GONNA HELP HIM WITH THE NAUSEA BUT PATIENT REMAINS NON-COMPLIANT WITH CARE AND CONTINUES TO SCREAM. WILL CONTINUE TO MONITOR PATIENT AND EDUCATE REGARDING COMPLIANCE WITH TREATMENT.
[2023-03-07 16:00] VITALS: BP 149/83
--- NOTE | 2023-03-07 18:56 | NUR ---
RN CLOSING NOTE PATIENT IN BED, AWAKE. HEMODIALYSIS ONGOING. NO SIGNS OF ACUTE DISTRESS NOTED. REMAINS STABLE ON ROOM AIR, NO SOB NOTED, BREATHING EVEN AND UNLABORED. NO C/O PAIN AT THIS TIME. WITH IV ACCESS ON LEFT AC #20G, INTACT AND PATENT, SALINE LOCKED. RIGHT CHESTWALL PERMACATH WITH DRESSING C/D/I. PATIENT NON-COMPLIANT WITH CARE. REFUSED MEDICATIONS. SAFETY MEASURE MAINTAINED. BED IN LOW AND LOCKED POSITION, SIDE RAILS UP X2, CALL LIGHT PLACED WITHIN EASY REACH. WILL ENDORSE TO NEXT SHIFT FOR CONTINUITY OF CARE.
--- NOTE | 2023-03-07 19:00 | NUR ---
RN OPENING NOTES RECEIVED PT AWAKE & SITTING IN BED. A/O X3, ABLE TO MAKE NEEDS KNOWN. PT IS IN RA TOLERATING WELL, BREATHING EVEN AND UNLABORED @ THIS TIME. PT IV PRESENT ON LEFT AC #20G SALINE LOCK, PATENT, INTACT AND FLUSHES WELL W/ NO S&SX OF INFILTRATION @ SITE NOTED. HD CATH @ RIGHT CHEST IS IN PLACE WITH BRUIT AND THRILL NOTED. SAFETY MEASURE IS IN PLACE. BED IN LOWEST & LOCKED POSITION. SIDE RAILS UP X 2. BEDSIDE TABLE AND CALL LIGHT IS WITHIN REACH. BED ALARM IS ON. WILL CONTINUE TO MONITOR PT ACCORDINGLY.
[2023-03-07 20:00] VITALS: BP 155/76
[2023-03-07] MEDS: ATORVASTATIN 40 MG TABLET PO SCH (21:39)
[2023-03-07] MEDS: LATANOPROST EYE DROP 0.005% 2.5 ML BOTTLE RIGHTEYE SCH (21:40)
[2023-03-07] MEDS: INSULIN GLARGINE, 100 UNIT/ML CARTRIDGE SQ SCH (21:59)
--- NOTE | 2023-03-07 22:03 | NUR ---
PT REFUSED INSULIN LANTUS AND INSULIN REGULAR. PT WAS INFORMED OF HIS BLOOD GLUCOSE OF 155. PT WAS GIVEN INSTRUCTIONS AND EXPLANATION OF THE IMPORTANCE OF TAKING THE MEDICATION. PT STILL REFUSED TO TAKE THE MEDICATION. CHARGE NURSE IS INFORMED AND AWARE.
--- NOTE | 2023-03-07 23:39 | NUR ---
PT REFUSED VITAL SIGNS TO BE TAKEN. CHARGE NURSE IS INFORMED AND AWARE. WILL CONTINUE TO MONITOR.
--- NOTE | 2023-03-08 04:00 | NUR ---
PT REFUSED SKIN TREATMENT FOR THE RASH IN THE BUTTOCKS. EXPLAINED TO PT RISK AND BENEFITS. WILL CONTINUE TO ENCOURAGE PT TO COMPLY WITH PLAN OF CARE.
--- NOTE | 2023-03-08 06:36 | NUR ---
PT REFUSED ACCU-CHECK TO BE TAKEN DESPITE EXPLAINING THE RISK AND BENEFITS OF THE PROCEDURE. PT STATED "I DON'T WANT INSULIN." ATTEMPTED TO ASKED THE PT 3X BUT PT STILL REFUSED. WILL CONTINUE TO ENCOURAGE PT TO COMPLY WITH PLAN OF CARE.
--- NOTE | 2023-03-08 06:39 | NUR ---
RN CLOSING NOTE PT AWAKE 7 RESTING COMFORTABLY IN BED. A/O X3, RESPONSIVE. PT IS IN RA W/ NO S&SX OF RESPIRATORY DISTRESS NOTED @ THIS TIME. PT IV PRESENT ON LEFT AC #20G SALINE LOCK, PATENT, INTACT AND FLUSHES WELL W/ NO S &SX OF INFILTRATION @ SITE NOTED. HD CATHETER IN THE RIGHT CHEST IS IN PLACE. PT DIAPER CHANGED X 7. PT KEPT CLEAN AND DRY. ADMINISTERED MEDICATIONS ACCORDINGLY PER MD'S ORDER. SAFETY MEASURE IS IN PLACE. BED IN LOWEST & LOCKED POSITION. SIDE RAILS UP X 2. BEDSIDE TABLE AND CALL LIGHT IS WITHIN REACH. BED ALARM IS ON. WILL ENDORSE PT TO THE NEXT SHIFT FOR JOGRE.
[2023-03-08] MEDS: BLOOD SUGAR DIAGNOSTIC 1 EACH STRIP VI SCH ×4 (07:30→22:00)
--- NOTE | 2023-03-08 07:35 | NUR ---
RN OPENING NOTE RECEIVED PATIENT ASLEEP IN BED, AWAKENS TO VERBAL STIMULI. A/O X3. ON ROOM AIR, BREATHING EVEN AND UNLABORED, NO DISTRESS OR SHORTNESS OF BREATH NOTED. IV ACCESS ON LAC #20G SL, PATENT AND FLUSHING WELL. WITH RIGHT CHEST HD CATHETER. FALL AND SAFETY MEASURES IN PLACE, BED ALARM ON, BED IN LOW AND LOCK POSITION, CALL LIGHT AND TABLE WITHIN EASY REACH, SIDE RAILS X2. WILL CONTINUE TO MONITOR.
--- NOTE | 2023-03-08 07:45 | NUR ---
RN NOTE PATIENT IS VERBALLY AGGRESSIVE, REFUSES BLOOD SUGAR CHECK, REFUSES VITAL SIGNS AND REFUSES MEDICATION. WILL CONTINUE TO MONITOR
[2023-03-08 08:00] VITALS: BP 153/77
[2023-03-08] MEDS: CHOLECALCIFEROL 1,000 UNIT TABLET (VIT D3) PO SCH (09:10)
[2023-03-08] MEDS: ACIDOPHILUS/BULGARICUS 1 EACH TAB.CHEW PO SCH ×3 (09:11→16:57)
[2023-03-08] MEDS: ESCITALOPRAM OXALATE (10 MG) 10 MG TABLET PO SCH (09:11)
[2023-03-08] MEDS: LABETALOL HCL (100MG) 100 MG TABLET PO SCH ×3 (09:11→16:56)
[2023-03-08] MEDS: AMLODIPINE BESYLATE 10 MG TABLET PO SCH (09:12)
[2023-03-08] MEDS: NEPRO VAN 237 ML CAN PO SCH ×3 (09:16→16:52)
[2023-03-08] MEDS: BRIMONIDINE TARTRATE OPHT SOLN 5 ML BOTTLE OP SCH ×3 (09:16→16:48)
[2023-03-08] MEDS: CLOTRIMAZOLE 1% 15 GM TUBE TP SCH ×2 (09:26→16:53)
[2023-03-08 10:00] VITALS: BP 153/77
[2023-03-08 12:00] VITALS: BP 142/70
--- NOTE | 2023-03-08 12:00 | NUR ---
RN NOTE PATIENT ALLOWED VITAL SIGNS CHECK BUT REFUSED BLOOD SUGAR CHECK. WILL CONTINUE TO MONITOR PATIENT
--- NOTE | 2023-03-08 16:50 | NUR ---
RN NOTE SCANNED ALL SCHEDULED MEDICATIONS AFTER PATIENT VERBALIZED TO TAKE IT. PATIENT INFORMED OF CURRENT VITAL SIGNS BP 153/77 HR 75. REITERATED AND EMPHASIZED THE IMPORTANCE OF TAKING MEDICATIONS ORDERED HOWEVER PATIENT VERBALIZED REFUSAL TO TAKE IT FOR UNKNOWN REASON. WILL CONTINUE TO MONITOR PATIENT
[2023-03-08 17:44] VITALS: BP 159/91
--- NOTE | 2023-03-08 18:55 | NUR ---
RN CLOSING NOTE PT AWAKE IN BED, A/O X3. PT IS IN RA W/ NO S&SX OF RESPIRATORY DISTRESS NOTED AT THIS TIME. PT IV PRESENT ON LEFT AC #20G SALINE LOCK, PATENT, INTACT AND FLUSHES WELL. HD CATHETER IN THE RIGHT CHEST. PT KEPT CLEAN AND DRY, REMINDED TO OBSERVE PROPER HYGIENE AT ALL TIMES. ADMINISTERED MEDICATIONS ORDERED AND DISCUSSED THE CONSEQUENCE OF REFUSING MEDICATIONS. REFUSED SKIN ASSESSMENT. SAFETY MEASURE IS IN PLACE. BED IN LOWEST & LOCKED POSITION. SIDE RAILS UP X 2. BEDSIDE TABLE AND CALL LIGHT IS WITHIN REACH. BED ALARM IS ON. WILL ENDORSE TO THE NEXT SHIFT FOR JORGE.
--- NOTE | 2023-03-08 19:59 | NUR ---
MS RN OPENING NOTES: RECEIVED PATIENT AWAKE IN BED, BED INLOW POSITION, CALL LIGHTS WITHIN REACH, NO COMPLAIN OF PAIN AND DISCOMFORT AT THIS TIME , ON ROOM AIR SATURATING WELL, PATIENT IS A/O X3 ABLE TO MAKE NEEDS KNOWN, ON HEMODIALYSI, DONE TODAY WITH 2LTR OUT, IV LINE AT [id number], PATIENT KEPT CLEAN AND DRY ALL NEEDS MET WILL CONTINUE TO MONITOR.
[2023-03-08] MEDS: ATORVASTATIN 40 MG TABLET PO SCH (22:00)
[2023-03-08] MEDS: LATANOPROST EYE DROP 0.005% 2.5 ML BOTTLE RIGHTEYE SCH (22:00)
[2023-03-08] MEDS: INSULIN GLARGINE, 100 UNIT/ML CARTRIDGE SQ SCH (22:00)
--- NOTE | 2023-03-08 22:06 | NUR ---
RN NOTES; PATIENT WAS NOTED WITH NAUSEA AND VOMITING, OFFERED ZOFRAN 4MG IVP PATIENT REFUSED EXPLAINED THAT RISK AND BENEFITS BUT PATIENT CONSTANTLY REFUSED AND GETS AGITATED. PATIENT HAS OTHER MEDICATION AT BEDTIME, ATORVASTATIN AND LATANOPROST EYE DROPS FOR RIGHT EYE, LONG ACTING INSULIN AND BLOOD SUGAR CHECK, EXPLAINED RISK AND BENEFITS OF TAKING THE MEDICATIONS, PATIENT REFUSED ALL OF IT AND STARTED TO GET AGITATED, PATIENT HAS HISTORY OF CONSTANTLY REFUSING MEDICATION, WILL CONTINUE TO MONITOR.
--- NOTE | 2023-03-09 05:29 | NUR ---
RN NOTES: PATIENT WAS NOTED WITH OUT IV LINE OFFERED TO RE INSERT IV BUT PATIENT CONTINUOUSLY REFUSED, EXPLAIN RISK AND BENEFITS BUT STILL REFUSED WILL CONTINUE TO MONITOR.
--- NOTE | 2023-03-09 06:53 | NUR ---
RN NOTES; PATIENT REFUSED BLOOD SUGAR CHECK IN AM, STILL REFUSED IV LINE INSERTION AND CHANGE, PATIENT IS NONE COMPLIANCE O MEDICATION AND MANAGEMENT OF CARE, WILL CONTINUE TO MONITOR.
--- NOTE | 2023-03-09 07:09 | NUR ---
RN CLOSING NOTES: PATIENT AWAKE IN BED, BED IN LOW POSITION CALL LIGHTS WITHIN REACH, PATIENT HAS EPISODE OF VOMITING, NONE COMPLIANCE , CONSISTENTLY REFUSING MEDICATION, BLOOD PRESSURE CHECK,BLOOD SUGAR CHECK, NOTED WITH OUT IV LINE AT 0400 AM OFFERED TO REINSERT BUT PATIENT REFUSED, ON HEMODIALYSIS WITH R CHEST HD PORT CLEAN NO BLEEDING WAS OBSERVED. CHARGE NURSE WAS MADE AWARE, PATIENT KEPT CLEAN AND DRY, NEEDS ATTENDED WILL CONTINUE TO MONITOR
--- NOTE | 2023-03-09 07:15 | NUR ---
RN OPENING NOTE RECEIVED PATIENT ASLEEP IN BED, EASY TO AROUSE, RESPONDS TO VERBAL STIMULI. A/O X3. ON ROOM AIR, TOLERATING WELL. NO SIGNS OF ACUTE DISTRESS NOTED AT THIS TIME. NO SOB NOTED, BREATHING EVEN AND UNLABORED. PATIENT HAS NO IV ACCESS AT THIS TIME. WITH RIGHT CHEST HD CATHETER. FALL AND SAFETY MEASURES IN PLACE; BED ALARM ON; BED IN LOW AND LOCKED POSITION; CALL LIGHT WITHIN EASY REACH; SIDE RAILS X2. WILL CONTINUE TO MONITOR THE PATIENT.
[2023-03-09] MEDS: BLOOD SUGAR DIAGNOSTIC 1 EACH STRIP VI SCH ×4 (07:30→22:00)
[2023-03-09] MEDS: CHOLECALCIFEROL 1,000 UNIT TABLET (VIT D3) PO SCH (09:00)
[2023-03-09] MEDS: CLOTRIMAZOLE 1% 15 GM TUBE TP SCH ×2 (09:00→17:00)
[2023-03-09] MEDS: ACIDOPHILUS/BULGARICUS 1 EACH TAB.CHEW PO SCH ×2 (09:00→17:00)
[2023-03-09] MEDS: LABETALOL HCL (100MG) 100 MG TABLET PO SCH ×2 (09:00→17:00)
[2023-03-09] MEDS: ESCITALOPRAM OXALATE (10 MG) 10 MG TABLET PO SCH (09:00)
[2023-03-09] MEDS: BRIMONIDINE TARTRATE OPHT SOLN 5 ML BOTTLE OP SCH ×3 (09:00→17:00)
[2023-03-09] MEDS: NEPRO VAN 237 ML CAN PO SCH ×3 (09:00→17:00)
[2023-03-09] MEDS: AMLODIPINE BESYLATE 10 MG TABLET PO SCH (09:00)
--- NOTE | 2023-03-09 09:00 | NUR ---
RN NOTES PATIENT WAS NOTED WITHOUT IV LINE. OFFERED TO RE-INSERT IV LINE BUT PATIENT REFUSED, EXPLAIN RISK AND BENEFITS BUT STILL REFUSED. WILL CONTINUE TO MONITOR.
--- NOTE | 2023-03-09 09:35 | NUR ---
RN NOTES SCANNED ALL SCHEDULED MEDICATIONS AFTER PATIENT VERBALIZED TO TAKE IT. PATIENT REFUSED TO TAKE IT. EXPLAINED AND EMPHASIZED THE IMPORTANCE OF TAKING MEDICATIONS ORDERED HOWEVER PATIENT VERBALIZED REFUSAL TO TAKE IT FOR UNKNOWN REASON. WILL CONTINUE TO MONITOR PATIENT
[2023-03-09 11:41] LABS: BASOPHILS % (AUTO) 0.6 % (0.0-2.0); EOSINOPHILS % (AUTO) 0.1 % (0.0-6.0); HEMATOCRIT 29 % (39-51); HEMOGLOBIN 9.1 g/dL (13.5-17.5); LYMPHOCYTES # (AUTO) 0.3 K/uL (0.8-4.8); LYMPHOCYTES % (AUTO) 4.5 % (20.0-44.0); MEAN CORPUSCULAR HGB CONC 31 g/dl (31.0-36.0); MEAN CORPUSCULAR VOLUME 84 fL (80-96); MONOCYTES # (AUTO) 0.2 K/uL (0.1-1.30); MONOCYTES % (AUTO) 2.9 % (2.0-12.0); NEUTROPHILS # (AUTO) 5.7 K/uL (1.8-8.9); NEUTROPHILS % (AUTO) 91.9 % (43.0-81.0); PLATELET COUNT (AUTO) 123 K/uL (150-450); RED BLOOD CELL COUNT(AUTO) 3.49 MIL/uL (4.5-6.0); WHITE BLOOD COUNT (AUTO) 6.2 K/uL (4.3-11.0)
[2023-03-09 11:51] LABS: CALCIUM, SERUM 8.9 mg/dL (8.5-10.1); CREATININE 4.5 mg/dL (0.6-1.3)
[2023-03-09] MEDS: ONDANSETRON 4 MG TAB.RAPDIS PO PRN (13:09)
--- NOTE | 2023-03-09 13:09 | NUR ---
RN NOTES PATIENT HAS BEEN NAUSEOUS AND VOMITING. PATIENT ASK FOR PRN MEDICATION TO LESSEN HIS N/V. GAVE ZOFRAN TAB. WILL CONTINUE TO MONITOR
--- NOTE | 2023-03-09 14:00 | NUR ---
RN NOTES PATIENT STARTED HD AT 1400H. WILL CONTINUE MONITOR.
--- NOTE | 2023-03-09 17:04 | NUR ---
RN NOTES PATIENT HD ENDED AT 1700H WITH 2L OF OUTPUT. PATIENT TOLERATED WELL. PATIENT IS STABLE. WILL CONTINUE TO MONITOR. NO S/SX OF NAUSEA AND VOMITING. WILL CONTINUE TO MONITOR.
--- NOTE | 2023-03-09 18:47 | NUR ---
RN CLOSING NOTES PATIENT ASLEEP IN BED, EASY TO AROUSE, RESPONDS TO VERBAL STIMULI. A/O X3. ON ROOM AIR, TOLERATED WELL. NO SIGNS OF ACUTE DISTRESS NOTED AT THIS TIME. NO SOB NOTED, BREATHING EVEN AND UNLABORED. PATIENT HAS NO IV ACCESS AT THIS TIME. WITH RIGHT CHEST HD CATHETER. PATIENT REFUSED PO MEDICATIONS; MD AWARE. ALL NURSING NEEDS ATTENDED. FALL AND SAFETY MEASURES PLACED; BED ALARM WAS ON; BED IN LOW AND LOCKED POSITION; CALL LIGHT WITHIN EASY REACH; SIDE RAILS X2. WILL ENDORSE TO CONSTRUCTION MANAGEMENT ASSISTANT NURSE FOR CONTINUITY OF CARE.
--- NOTE | 2023-03-09 19:24 | NUR ---
MS RN OPENING NOTES; RECEIVED PATIENT SLEEP IN BED, AROUSABLE TO VERBAL STIMULI, BED IN LOW POSITION CALL LIGHTS WITHIN REACH, NO COMPLAIN OF PAIN AND DISCOMFORT AT THIS TIME, ON ROOM AIR SATURATING WELL, PATIENT IS A/O X3 ABLE TO MAKE NEEDS KNOWN, NO EPISODE OF VOMITING, NO IV LINE , OFFERED PATIENT REFUSED, WITH RT CHEST HD CATH- HD DONE TODAY-2LTS OUT, PATIENT KEPT CLEAN AND DRY ALL NEEDS MET WILL CONTINUE TO MONITOR.
--- NOTE | 2023-03-09 20:02 | NUR ---
RN NOTES; PATIENT REFUSED INITIAL BLOOD PRESSURE CHECK OFFERED TWICE PATIENT STILL REFUSED WILL CONTINUE TO MONITOR.
--- NOTE | 2023-03-09 21:55 | NUR ---
JEFE NOTES; Addendum: 03/09/23 at 2157 by BARBI JARA RN PATIENT REFUSED IV INSERTION OFFERED TWICE EXPLAIN RISK AND BENEFITS BUT REFUSED, REFUSED CHOLESTEROL MEDICATION, ALLOWED BLOOD SUGAR CHECK-86, ALLOWS LINEN CHANGE WILL CONTINUE TO MONITOR.
[2023-03-09] MEDS: LATANOPROST EYE DROP 0.005% 2.5 ML BOTTLE RIGHTEYE SCH (22:00)
[2023-03-09] MEDS: INSULIN GLARGINE, 100 UNIT/ML CARTRIDGE SQ SCH (22:00)
[2023-03-09] MEDS: ATORVASTATIN 40 MG TABLET PO SCH (22:00)
--- NOTE | 2023-03-09 22:05 | NUR ---
RN NOTES: BLOOD SUGAR-86/ NO INSULIN GIVEN PER SLIDNG SCALE, PATIENT HAS DOES NOT EATING MUCH DUE TO FEELING OF VOMITING, REFUSED ZOFRAN MEDICATIONS
[2023-03-10] MEDS: ONDANSETRON 4 MG TAB.RAPDIS PO PRN (02:31)
[2023-03-10] MEDS: BLOOD SUGAR DIAGNOSTIC 1 EACH STRIP VI SCH ×4 (06:50→23:03)
--- NOTE | 2023-03-10 06:50 | NUR ---
RN NOTES: REFUSED BLOOD SUGAR CHECK IN THE MORNING EXPLAIN RISK AND BENEFIT , PATIENT KEPT ON REFUSING WILL CONTINUE TO MONITOR.
--- NOTE | 2023-03-10 07:00 | NUR ---
RN CLOSING NOTES: PATIENT AWAKE IN BED BED IN LOW POSITION CALL LIGHTS WITHIN REACH, NO COMPLAIN OF PAIN AND DISCOMFORT AT THIS TIME, ON ROOM AIR SATURATING WELL, PATIENT IS A/O X3 ABLE TO MAKE NEEDS, NO IV LINE PRESENT PATIENT REFUSED, ON HEMODIALYSIS HD ON RIGHT CHEST WALL, NO BLEEDING WAS OBSERVED, PATIENT KEPT CLEAN AND DRY ALL NEEDS MET WILL ENDORSE TO INCOMING SHIFT.
--- NOTE | 2023-03-10 07:02 | NUR ---
MS RN OPENING NOTES; RECEIVED PATIENT aSLEEP IN BED, AROUSABLE TO VERBAL STIMULI, BED IN LOW POSITION CALL LIGHTS WITHIN REACH, NO COMPLAIN OF PAIN AND DISCOMFORT AT THIS TIME, ON ROOM AIR SATURATING WELL, PATIENT IS A/O X3 ABLE TO MAKE NEEDS KNOWN, NO EPISODE OF VOMITING, NO IV LINE , OFFERED PATIENT REFUSED, WITH RT CHEST HD CATH- HD, PATIENT KEPT CLEAN AND DRY ALL NEEDS MET WILL CONTINUE TO MONITOR.
[2023-03-10 08:00] VITALS: BP 170/89
[2023-03-10] MEDS: AMLODIPINE BESYLATE 10 MG TABLET PO SCH (09:00)
[2023-03-10] MEDS: ESCITALOPRAM OXALATE (10 MG) 10 MG TABLET PO SCH ×2 (09:00→09:55)
[2023-03-10] MEDS: LABETALOL HCL (100MG) 100 MG TABLET PO SCH ×2 (09:00→17:00)
[2023-03-10] MEDS: ACIDOPHILUS/BULGARICUS 1 EACH TAB.CHEW PO SCH ×3 (09:00→17:00)
[2023-03-10] MEDS: CHOLECALCIFEROL 1,000 UNIT TABLET (VIT D3) PO SCH (09:00)
[2023-03-10] MEDS: CLOTRIMAZOLE 1% 15 GM TUBE TP SCH ×2 (09:54→17:00)
[2023-03-10] MEDS: BRIMONIDINE TARTRATE OPHT SOLN 5 ML BOTTLE OP SCH ×3 (09:55→17:00)
[2023-03-10] MEDS: NEPRO VAN 237 ML CAN PO SCH ×3 (09:56→17:00)
--- NOTE | 2023-03-10 10:16 | NUR ---
Due to history of refusing medications, patient was initially asked if he's taking his medications this morning. Patient agreed to take however, refused all his oral medications on actual administration. Likewise, lab draw for cbc and cmp was reordered due to earlier refusal. MD informed, charge nurse aware
[2023-03-10 10:47] LABS: CALCIUM, SERUM 9.1 mg/dL (8.5-10.1); CREATININE 3.1 mg/dL (0.6-1.3); POTASSIUM 4.6 mmol/L (3.5-5.1)
[2023-03-10 10:53] LABS: ALBUMIN 3.1 g/dL (3.4-5.0); BILIRUBIN,TOTAL 0.8 mg/dL (0.2-1.0); TOTAL PROTEIN, SERUM 7.1 g/dL (6.4-8.2)
[2023-03-10 11:56] LABS: EOSINOPHILS % (AUTO) 0.7 % (0.0-6.0); HEMATOCRIT 27 % (39-51); HEMOGLOBIN 8.7 g/dL (13.5-17.5); LYMPHOCYTES # (AUTO) 0.6 K/uL (0.8-4.8); LYMPHOCYTES % (AUTO) 14.7 % (20.0-44.0); MEAN CORPUSCULAR HGB CONC 32 g/dl (31.0-36.0); MEAN CORPUSCULAR VOLUME 84 fL (80-96); MONOCYTES # (AUTO) 0.3 K/uL (0.1-1.30); MONOCYTES % (AUTO) 8.2 % (2.0-12.0); NEUTROPHILS # (AUTO) 3.2 K/uL (1.8-8.9); NEUTROPHILS % (AUTO) 75.4 % (43.0-81.0); PLATELET COUNT (AUTO) 137 K/uL (150-450); RED BLOOD CELL COUNT(AUTO) 3.25 MIL/uL (4.5-6.0); WHITE BLOOD COUNT (AUTO) 4.2 K/uL (4.3-11.0)
--- NOTE | 2023-03-10 16:15 | NUR ---
TURBINE ASSEMBLER reported to the nurse, patient's refusal to taking routine vital signs. Nurse spoke with the patient explaining risks and benefits but patient still refused. Additionally, It was observed that patient has been asking for food but not consuming the food requested. Patient requested 2 milk at 1300 and asked to be opened - not consumed. Requested another milk at 1500 - consumed half at 1600. Requested egg sandwich at 1300 - not consumed as of 1600. MD informed, Charge nurse aware.
--- NOTE | 2023-03-10 17:12 | NUR ---
Patient refused all his medications for 1700. Patient has scheduled hemodialysis today approximately around 1600. Patient has acknowledged and agreeable to HD procedure, HD staff informed. Charge nurse aware. Patient referred to [facility] as ordered by Dr. Barbour
--- NOTE | 2023-03-10 18:45 | NUR ---
Closing note - Patient undergoing hemodialysis at this time. Patient has been referred to [facility]. Safety protocol in placed, will be endorsed to pm shift nurse for camilo
--- NOTE | 2023-03-10 19:30 | NUR ---
MS H[facility]BROOK INITIAL NOTES Received report from am nurse and seen patient in bed lying on his side with the dialysis nurse at the bedside doing dialysis treatment to the patient. No signs of any acute distress noted. breathing even and non-labored. will continue monitoring.call light at reach.
[2023-03-10 20:00] VITALS: BP 173/74
[2023-03-10] MEDS: ATORVASTATIN 40 MG TABLET PO SCH (22:53)
--- NOTE | 2023-03-10 23:00 | NUR ---
MS SHERON NOTES Blood sugar checked done 134, lantus 10 units given alejandra SQ as ordered. educate patient regarding his insulin. snacks also served. 2 units of regular insulin given as well. No signs of hypo/hyper glycemia noted. will continue monitoring. call light at reach.
[2023-03-10] MEDS: INSULIN GLARGINE, 100 UNIT/ML CARTRIDGE SQ SCH (23:02)
[2023-03-10] MEDS: LATANOPROST EYE DROP 0.005% 2.5 ML BOTTLE RIGHTEYE SCH (23:03)
[2023-03-10] MEDS: INSULIN REGULAR, HUMAN 100 UNIT/ML 3 ML VIAL SQ PRN (23:07)
--- NOTE | 2023-03-11 01:00 | NUR ---
MS GLUING MACHINE ADJUSTER NOTES PT SLEEPING AT THIS TIME WITHOUT ANY SIGNS OF ANY DISTRESS NOTED. WILL CONTINUE MONITORING.
--- NOTE | 2023-03-11 05:15 | NUR ---
MS CARDROOM HAND NOTES PT WOKE UP AND ASKING FOR FOOD HE SAID THAT HE'S SO HUNGRY . HE REFUSED HIS DINNER LAST NIGHT AFTER HE ASKED PETE LEIGH TO WARM UP . GAVE SOME CRACKERS AND APPLE JUICE AFTER BLOOD SUGAR CHECKED LAST NIGHT . I OFFERED HIS NEPHRO SUPPLEMENT HE STATES HE DOESN'T DRINK THAT KIND OF SUPPLEMENT DRINK . HE AGREED TO HAVE APPLE JUICE AND TUNA SANDWICH . PT REFUSED TO BE CLEANED UP BUT HE AGREED TO CHANGED HIS GOWN. PT DENIES ANY DISCOMFORT . NO SIGNS OF ANY ACUTE DISTRESS NOTED. WILL CONTINUE MONITORING. ALL LIGHT AT REACH.
--- NOTE | 2023-03-11 07:30 | NUR ---
MS SHOE TREER CLOSING NOTES PT AWAKE AND RESTING IN BED . NO SIGNS OF ANY ACUTE DISTRESS NOTED. STILL REFUSING TO HAVE HEPLOCK INSERTION EVEN THOUGH I EXPLAINED TO HIM WHY HE NEEDS IT. PT REFUSED TO HAVE MORNING CARE AND BLOOD SUGAR CHECK WELL HE TOLD ME HE WANTS TO EAT FIRST. NO SIGNS OF ANY ACUTE DISTRESS NOTED. KEPT HIM WARM AND COMFORTABLE AT ALL TIMES. WILL ENDORSE TO AM NURSE FOR CONTINUITY OF CARE. PLACE TIFFANIE LIGHT AT REACH.
--- NOTE | 2023-03-11 07:33 | NUR ---
MS RN OPENING NOTE RECEIVED PATIENT AWAKE IN BED, A/O X 3, ABLE TO MAKE NEEDS KNOWN; STABLE ON ROOM AIR, BREATHING EVEN AND UNLABORED. NO S/S OF DISTRESS NOTED; NO PAIN AT THIS TIME, WITH HD ACCESS AT RIGHT CHEST WALL. PATIENT REFUSED IV ACCESS INSERTION. SAFETY MEASURES IMPLEMENTED, BED LOCKED IN LOWEST POSITION, SIDE RAILS UP X 2, CALL LIGHT AND TABLE WITHIN REACH; WILL CONTINUE TO MONITOR PATIENT THROUGHOUT SHIFT.
[2023-03-11 08:00] VITALS: BP 183/88
[2023-03-11] MEDS: CLOTRIMAZOLE 1% 15 GM TUBE TP SCH ×2 (08:17→17:00)
[2023-03-11] MEDS: BLOOD SUGAR DIAGNOSTIC 1 EACH STRIP VI SCH ×4 (08:36→22:13)
[2023-03-11] MEDS: BRIMONIDINE TARTRATE OPHT SOLN 5 ML BOTTLE OP SCH ×3 (08:46→17:00)
[2023-03-11] MEDS: AMLODIPINE BESYLATE 10 MG TABLET PO SCH (08:47)
[2023-03-11] MEDS: CHOLECALCIFEROL 1,000 UNIT TABLET (VIT D3) PO SCH ×2 (08:48→09:00)
[2023-03-11] MEDS: LABETALOL HCL (100MG) 100 MG TABLET PO SCH ×2 (08:48→17:00)
[2023-03-11] MEDS: ACIDOPHILUS/BULGARICUS 1 EACH TAB.CHEW PO SCH ×3 (08:48→17:00)
[2023-03-11] MEDS: ESCITALOPRAM OXALATE (10 MG) 10 MG TABLET PO SCH (08:48)
[2023-03-11] MEDS: NEPRO VAN 237 ML CAN PO SCH ×3 (08:49→17:00)
--- NOTE | 2023-03-11 09:00 | NUR ---
RN NOTE PATIENT IS UNCOOPERATIVE AND SELECTIVE IN TAKING MEDICATIONS. PATIENT REFUSED TO TAKE VITAMIN D3 AND LACTINEX. CONSEQUENCES OF REFUSING MEDICATIONS DISCUSSED WITH PATIENT BUT PATIENT INSISTED NOT TO TAKE. WILL CONTINUE TO MONITOR PATIENT
--- NOTE | 2023-03-11 09:45 | NUR ---
RN NOTE PATIENT REFUSED 7:30 ACCUCHECK. PATIENT AGREED TO HAVE ACCUCHECK 8:20. GLUCOSE LEVEL WAS 52 THEN IT WAS RECHECKED AND GLUCOSE LEVEL WENT DOWN TO 33. PROTOCOL WAS FOLLOWED, D50 IV PRN WAS GIVEN, PATIENT WAS ABLE TO EAT BREAKFAST AND DRINK JUICE. RECHECKED GLUCOSE LEVEL AGAIN WITH RESULT AT 201. DR WAS INFORMED AND CHARGE NURSE WAS AWARE.
--- NOTE | 2023-03-11 12:50 | NUR ---
RN NOTE PATIENT HEMODIALYSIS WAS TERMINATED 30 MINUTES EARLIER DUE TO DECREASED BLOOD PRESSURE. OUTPUT WAS 600ML. PATIENT IS IN ROOM, RESTING COMFORTABLY, NO COMPLAIN OF DISCOMFORT OR PAIN. WILL CONTINUE TO MONITOR
[2023-03-11 15:52] VITALS: BP 105/59
--- NOTE | 2023-03-11 17:21 | NUR ---
RN NOTE PATIENT REFUSED ALL PM MEDS. MULTIPLE ATTEMPTS WERE MADE. PATIENT WAS EDUCATED ON RISKS AND BENEFITS OF TAKING MEDICATIONS. PATIENT REFUSED REGARDLESS OF INSTRUCTIONS GIVEN. WILL CONTINUE TO MONITOR PATIENT AND ENDORSE TO NEXT SHIFT NURSE
--- NOTE | 2023-03-11 19:39 | NUR ---
RN CLOSING NOTE PT AWAKE IN BED, A/O X3. PT IS IN RA W/ NO S&SX OF RESPIRATORY DISTRESS NOTED AT THIS TIME. PATIENT PULLED OUT IV ACCESS AND REFUSES FOR IV REINSERTION. PATIENT HAS AN HD CATHETER IN THE RIGHT CHEST. PT KEPT CLEAN AND DRY, REMINDED TO OBSERVE PROPER HYGIENE AT ALL TIMES. ADMINISTERED MEDICATIONS ORDERED AND DISCUSSED THE CONSEQUENCE OF REFUSING MEDICATIONS. REFUSED SKIN ASSESSMENT. SAFETY MEASURE IS IN PLACE. BED IN LOWEST & LOCKED POSITION. SIDE RAILS UP X 2. BEDSIDE TABLE AND CALL LIGHT IS WITHIN REACH. BED ALARM IS ON. WILL ENDORSE TO THE DATA CONTROL CLERK SUPERVISOR FOR JORGE.
--- NOTE | 2023-03-11 19:44 | NUR ---
MS RN OPENING NOTE RECEIVED PATIENT AWAKE IN BED, A/O X 3, ABLE TO MAKE NEEDS KNOWN; STABLE ON ROOM AIR, BREATHING EVEN AND UNLABORED. NO S/S OF DISTRESS NOTED; NO PAIN AT THIS TIME, WITH HD ACCESS AT RIGHT CHEST WALL.SAFETY MEASURES IMPLEMENTED, BED LOCKED IN LOWEST POSITION, SIDE RAILS UP X 2, CALL LIGHT AND TABLE WITHIN REACH; WILL CONTINUE TO MONITOR.
[2023-03-11 20:00] VITALS: BP 139/77
[2023-03-11] MEDS: ATORVASTATIN 40 MG TABLET PO SCH (21:06)
[2023-03-11] MEDS: LATANOPROST EYE DROP 0.005% 2.5 ML BOTTLE RIGHTEYE SCH (21:10)
[2023-03-11] MEDS: INSULIN GLARGINE, 100 UNIT/ML CARTRIDGE SQ SCH (22:15)
--- NOTE | 2023-03-12 06:28 | NUR ---
MS RN CLOSING NOTE; PATIENT AWAKE IN BED, A/O X 3, ABLE TO MAKE NEEDS KNOWN; STABLE ON ROOM AIR, BREATHING EVEN AND UNLABORED. NO S/S OF DISTRESS NOTED; NO PAIN DURING SHIFT, WITH HD ACCESS AT RIGHT CHEST WALL.SAFETY MEASURES IMPLEMENTED, BED LOCKED IN LOWEST POSITION, SIDE RAILS UP X 2, CALL LIGHT AND TABLE WITHIN REACH; WILL CONTINUE TO MONITOR.
[2023-03-12] MEDS: INSULIN REGULAR, HUMAN 100 UNIT/ML 3 ML VIAL SQ PRN (06:35)
[2023-03-12 07:00] VITALS: BP 160/78
--- NOTE | 2023-03-12 07:20 | NUR ---
MS RN OPENING NOTE RECEIVED PATIENT AWAKE IN BED, PATIENT IS ALERT/ ORIENTD X 3-4. ABLE TO MAKE NEEDS KNOWN. ON ROOM AIR WITH EQUAL AND UNLABORED BREATHING. WITH NO SIGNS OF DISTRESS NOTED. NO COMPLAIN OF PAIN AT THIS TIME. WITH HD ACCESS ON THE RIGHT CHEST WALL, COVERED WITH TEGADERM, INTACT. PATIENT REFUSED IV ACCESS INSERTION, MD AWARE. SAFETY MEASURES ENSURED, WITH BED ON LOCKED AND LOWEST POSITION, SIDE RAILS UP X 2, CALL LIGHT AND TABLE WITHIN REACH; WILL CONTINUE WITH PLAN OF CARE.
[2023-03-12] MEDS: BLOOD SUGAR DIAGNOSTIC 1 EACH STRIP VI SCH ×4 (07:42→22:47)
[2023-03-12] MEDS: NEPRO VAN 237 ML CAN PO SCH ×3 (09:00→17:00)
[2023-03-12] MEDS: AMLODIPINE BESYLATE 10 MG TABLET PO SCH (09:31)
[2023-03-12] MEDS: ACIDOPHILUS/BULGARICUS 1 EACH TAB.CHEW PO SCH ×2 (09:31→17:00)
[2023-03-12] MEDS: BRIMONIDINE TARTRATE OPHT SOLN 5 ML BOTTLE OP SCH ×3 (09:31→17:00)
[2023-03-12] MEDS: CLOTRIMAZOLE 1% 15 GM TUBE TP SCH ×2 (09:32→17:00)
[2023-03-12] MEDS: ESCITALOPRAM OXALATE (10 MG) 10 MG TABLET PO SCH (09:32)
[2023-03-12] MEDS: LABETALOL HCL (100MG) 100 MG TABLET PO SCH ×2 (09:32→17:00)
[2023-03-12] MEDS: CHOLECALCIFEROL 1,000 UNIT TABLET (VIT D3) PO SCH (09:32)
--- NOTE | 2023-03-12 10:30 | NUR ---
MS RN NOTE SEEN BY HOSPITALIST STACI, WITH ORDER FOR DISCHARGE. HEALTH TEACHING DONE AND VERBALIZED UNDERSTANDING. WILL CONTINUE WITH PLAN OF CARE.
[2023-03-12] MEDS ORDERED: LATA2.5D15 RIGHTEYE (11:24)
[2023-03-12] MEDS ORDERED: BRIM5DRO3 RIGHTEYE (11:24)
[2023-03-12] MEDS ORDERED: AMLO10TA4 PO (11:24)
[2023-03-12] MEDS ORDERED: ESCI10TA PO (11:24)
[2023-03-12] MEDS ORDERED: ATOR20TA PO (11:24)
[2023-03-12] MEDS ORDERED: LABE100T5 PO (11:24)
[2023-03-12] MEDS ORDERED: CHOL500052 PO (11:24)
[2023-03-12 16:00] VITALS: BP 129/81
--- NOTE | 2023-03-12 18:47 | NUR ---
MS RN CLOSING NOTE RECEIVED PATIENT AWAKE IN BED, PATIENT IS ALERT/ ORIENTED X 3-4. ABLE TO MAKE NEEDS KNOWN. ON ROOM AIR WITH EQUAL AND UNLABORED BREATHING. WITH NO SIGNS OF DISTRESS NOTED. NO COMPLAIN OF PAIN AT THIS TIME. WITH HD ACCESS ON THE RIGHT CHEST WALL, COVERED WITH TEGADERM, INTACT. PATIENT REFUSED IV ACCESS INSERTION, MD AWARE. SAFETY MEASURES ENSURED, WITH BED ON LOCKED AND LOWEST POSITION, SIDE RAILS UP X 2, CALL LIGHT AND TABLE WITHIN REACH; WILL CONTINUE WITH PLAN OF CARE.
--- NOTE | 2023-03-12 18:48 | NUR ---
MS RN CLOSING NOTE PATIENT AWAKE IN BED, PATIENT IS ALERT/ ORIENTED X 3-4. ABLE TO MAKE NEEDS KNOWN. ON ROOM AIR WITH EQUAL AND UNLABORED BREATHING. WITH NO SIGNS OF DISTRESS NOTED. NO COMPLAIN OF PAIN AT THIS TIME. WITH HD ACCESS ON THE RIGHT CHEST WALL, COVERED WITH TEGADERM, INTACT. PATIENT REFUSED IV ACCESS INSERTION, MD AWARE. SAFETY MEASURES ENSURED, WITH BED ON LOCKED AND LOWEST POSITION, SIDE RAILS UP X 2, CALL LIGHT AND TABLE WITHIN REACH; WILL ENDORSE TO NEXT SHIFT FOR CONTINUITY OF CARE. STILL ONGOING HEMODIALYSIS, IN STABLE CONDITION.
--- NOTE | 2023-03-12 19:40 | NUR ---
MS RN OPENING NOTES RECEIVED PATIENT IN BED AWAKE, ALERT AND ORIENTED. A/O X 4. NO S/S OF PAIN NOTED AT THIS TIME. ON ROOM AIR, BREATHING EVEN AND UNLABORED, NO DISTRESS OR SOB NOTED. NO IV ACCESS, PATIENT REFUSED INSERTION, MD AWARE. WITH HD ACCESS RIGHT CHEST WALL, COVERED WITH TEGADERM, INTACT. SAFETY MEASURES IN PLACE WITH BED IN LOWEST LOCKED POSITION. SIDE RAILS UP X 2. CALL LIGHT AND TABLE WITHIN EASY REACH. WILL CONTINUE TO MONITOR THE PATIENT.
[2023-03-12 20:00] VITALS: BP 136/77
[2023-03-12] MEDS: INSULIN GLARGINE, 100 UNIT/ML CARTRIDGE SQ SCH (22:00)
[2023-03-12] MEDS: ATORVASTATIN 40 MG TABLET PO SCH (22:30)
[2023-03-12] MEDS: LOPERAMIDE HCL (2 MG CAP) 2 MG CAPSULE PO PRN (22:34)
[2023-03-12] MEDS: LATANOPROST EYE DROP 0.005% 2.5 ML BOTTLE RIGHTEYE SCH (22:41)
[2023-03-13] MEDS: LOPERAMIDE HCL (2 MG CAP) 2 MG CAPSULE PO PRN (02:18)
[2023-03-13] MEDS: BLOOD SUGAR DIAGNOSTIC 1 EACH STRIP VI SCH ×4 (06:51→22:00)
--- NOTE | 2023-03-13 07:19 | NUR ---
MS RN CLOSING NOTES PATIENT IN BED AWAKE, ALERT AND ORIENTED. A/O X 4. NO S/S OF PAIN NOTED AT THIS TIME. ON ROOM AIR, BREATHING EVEN AND UNLABORED, NO DISTRESS OR SOB NOTED. NO IV ACCESS, PATIENT REFUSED INSERTION, MD AWARE. WITH HD ACCESS RIGHT CHEST WALL, COVERED WITH TEGADERM, INTACT. SAFETY MEASURES MAINTAINED. WILL ENDORSE TO THE NEXT SHIFT.
--- NOTE | 2023-03-13 07:20 | NUR ---
MS RN OPENING NOTE RECEIVED PATIENT AWAKE SITTING IN BED, A/O X 3, ABLE TO MAKE NEEDS KNOWN; TOLERATING ON ROOM AIR, WITH EVEN AND UNLABORED BREATHING. NOT IN ANY FORM OF DISTRESS; NO PAIN AT THIS TIME, WITH PERMACATH ACCESS AT RIGHT CHEST WALL, INTACT AND WITH CLEAN DRY DRESSING. SAFETY MEASURES IMPLEMENTED, BED LOCKED IN LOWEST POSITION, SIDE RAILS UP X 2, CALL LIGHT AND TABLE WITHIN REACH; WILL CONTINUE TO MONITOR.
[2023-03-13 08:30] VITALS: BP 136/66
[2023-03-13] MEDS: CHOLECALCIFEROL 1,000 UNIT TABLET (VIT D3) PO SCH (09:00)
[2023-03-13] MEDS: ACIDOPHILUS/BULGARICUS 1 EACH TAB.CHEW PO SCH ×2 (09:00→17:00)
[2023-03-13] MEDS: ESCITALOPRAM OXALATE (10 MG) 10 MG TABLET PO SCH (09:00)
[2023-03-13] MEDS: LABETALOL HCL (100MG) 100 MG TABLET PO SCH ×2 (09:00→17:00)
[2023-03-13] MEDS: CLOTRIMAZOLE 1% 15 GM TUBE TP SCH ×2 (09:00→17:00)
[2023-03-13] MEDS: AMLODIPINE BESYLATE 10 MG TABLET PO SCH (09:00)
[2023-03-13] MEDS: BRIMONIDINE TARTRATE OPHT SOLN 5 ML BOTTLE OP SCH ×3 (09:00→17:00)
[2023-03-13] MEDS: NEPRO VAN 237 ML CAN PO SCH ×3 (09:10→17:00)
--- NOTE | 2023-03-13 09:40 | NUR ---
MS RN NOTES PATIENT REFUSED ALL HIS MORNING MEDS. OFFERED 3X AND EXPLAINED THE RISK AND HARM OF NOT TAKING HIS MEDICATIONS ESPECIALLY THE BLOOD PRESSURE MEDS. MADE AWARE
--- NOTE | 2023-03-13 09:45 | NUR ---
MS RN NOTES PATIENT REFUSED ALL HIS MORNING MEDS. OFFERED 3X AND EXPLAINED THE RISK AND BENEFITS OF NOT TAKING HIS MEDICATIONS ESPECIALLY THE BLOOD PRESSURE MEDS. MADE AWARE.
--- NOTE | 2023-03-13 10:40 | NUR ---
MS RN NOTES PATIENT REFUSED LAB DRAW STAT BMP. EXPLAINED THE RISK AND BENEFITS. MADE AWARE.
--- NOTE | 2023-03-13 11:01 | NUR ---
MS RN NOTE SEEN AND EXAMINED BY HOSPITALIST
--- NOTE | 2023-03-13 11:02 | NUR ---
"SW Consult: SW consult requested for patient possible homelessness. Patient brought to the hospital due to multiple medical issues. Patient presents alert and oriented x3 (self,place,situation). Patient reported he was brought to the hospital due to being sick. He did not want to clarify what sick meant. Patient stated that he would want to be discharged to the streets. He stated that he has his assisted in [place] but was unable to identify address. Patient reported that his support is his mother and father but was unable to give any information and refused to give information. He would become angry when this technical writer and editor would assess him. SW assessed for suicidal or homicidal, pt denied. SW assessed any hallucinations visual/auditory, pt denied. SW assessed for substance abuse or drug abuse and pt denied. SW consulted with CM and CM stated that they have given pt multiple options such as SNF or hospice care, he has refused the care that has been offered. Pt has been refusing his dialysis treatment multiple times. Pt has been consistently refusing his care at the hospital and does not want the help. SW offered pt resources and pt was accepting of shelters and substance abuse referrals. Pt stated that he is not homeless but has been living in a assisted. Pt did take the resources. SW placed the homeless waiver form in pt's chart. DC PLAN: Pt refusing placement options from this technical writer and editor and CM. Patient wanted to be discharge to [facility]. He did not identify address. Substance Abuse resources provided included: [facility] Substance Abuse Self-Helpline ([facility]) ; CRI -HELP [address] [facility]. [place] [id number] ; [facility] [address] [facility] [address] ; [facility] [address] [place] [facility]. [facility] [address] ; [facility] [address] [facility] [address] ; [facility] [place] [address] [facility] [phone] ; [facility] [address] [facility] [phone] ; [facility] Substance Abuse Helpline([facility])-[facility] ; [facility] ; [facility] [place]; [facility] [place]; [facility] [place]; [facility] [place]in [place]; [facility]; [facility] [place]; [facility] [place]; [facility], [facility]. [facility]; Alcoholics Anonymous -SFV; Eg-Ylja-Dfnodlk ; Marijuana Anonymous -SFV; Narcotics Anonymous www.na.org; Shelters: [facility] Provider: [facility] [place] Address: [address] [place], [address] # of Beds: 47 Population Served: [facility] 6 | [facility] Provider: [facility] Address: [address] [place] [address], [address] # of Beds: 66 Population Served: [facility] [place] Provider: First to Serve Address: [address] [facility], [address] # of Beds: 56 Population Served: [facility] Doug BrennanTammy [place] Provider: [facility] Address: [address] [facility], [address] # of Beds: 49 Population Served: [facility] 8 | [facility] Provider: First to Serve Address: [address] [facility], [address] # of Beds: 37 Population Served: [facility] Hygiene: [facility]: [address] [address] [place] ; [facility] [address] [facility] ; [facility] [address] Susi Webb [place] . Food Resources: [place] [facility] at [facility]- [address]. [place]; Meet Each Need with [place] ([facility]) [address] [facility]; [facility] Food Pant[facility] 4310 [facility]; [facility] 9175 [facility]. Mental Health resources provided: [facility] [address] [place], [place] [address] ; [facility] [place] [address] [facility] [address], [place], [place] [phone] ; [facility] [address] [facility] [place] [address] ; [facility] [place], [place] [phone] Healthcare Clinics: [facility] [address] [facility], [address] [place]. [place] ; [facility] [address] [facility] [address] [place] [address]; [facility] [address] [facility] [place] [address] [phone] Counseling--Outpatient [facility] [address] [facility], [place] [address] (Specializes in in-depth psychotherapy for emotional distress: anxiety, depression, interpersonal conflicts, life transitions, childhood abuse) [facility] [address] [place] [address] (Assist with solving problem marital difficulties, separation & divorce, aging parents, & grief, chronic & terminal illness) [facility] [address] [place] [address] (Deal with loss & grief, anxiety, marital difficulties) Homebound/Mental Health Services [address] [facility] [address] [place] [address] (Provide in-home mental services to people who are incapable of leaving their homes) [facility] Elderly Senior Service/Resource Center [address] [place] [address] [facility] [address] GoldmanTammy [place], [place] [phone] PSYCHIATRIC OUTPATIENT SERVICES [facility] Partial Hospitalization and Intensive Outpatient Program (Managed Care and [place] Only)[address] [facility] [phone] [facility] Partial Hospitalization and Outpatient [id number] [place], [place] [phone] [facility] Center [id number] [place], [place] [phone] [facility] Partial Hospitalization and Outpatient [id number] [facility] [place], [phone] "
--- NOTE | 2023-03-13 12:45 | NUR ---
MS RN NOTES PATIENT WAS UNDERGOING DIALYSIS WHEN HE SUDDENLY BECAME AGGITATED. HE INTENTIONALLY SLID OFF OF THE BED WITH THE DIALYSIS NURSE HOLDING ON TO HIM PREVENTING ANY STRONG IMPACT OR INJURY. SEVERAL NURSES WENT TO THE ROOM WHEN THE HD NURSE CALLED FOR HELP. AT THIS POINT, PATIENT WAS SAYING THAT 'I WANT TO '. PATIENT HELPED BACK TO BED AND SAFETY MEASURES ENSURED. HD NURSE OPTED TO STOP THE HD BECAUSE PATIENT WAS REFUSING VS CHECK AND MIGHT PULL OUT THE HD CATH. HD NURSE ALSO SAID THAT HE TRIED TO PUNCH HER TWICE. PATIENT BODY CHECK DONE, WITH NO APPARENT BRUISE/INJURY NOTED. NO COMPLAIN OF PAIN/ DISCOMFORT. CHARGE NURSE NOTIFIED. CALLED SECURITY. PATIENT WAS SEEN BY PSYCHIATRIST DR. PRIETO PREVIOUSLY. SEEN BY GPS LEG MAN VAIBHAV. PATIENT DENIES SUICIDAL IDEATION. PATIENT SAID THAT HE JUST DOESN'T WANT TO BE DISCHARGED YET AND PROMISED TO COOPERATE IF HE WILL STAY TODAY. CHARGE NURSE AND SET RIDER AWARE. PROVIDE WITH CALM AND QUIET ENVIRONMENT. WILL CONTINUE TO MONITOR PATIENT.
--- NOTE | 2023-03-13 19:05 | NUR ---
MS RN CLOSING NOTES PATIENT ASLEEP IN BED, ALERT AND ORIENTED. A/O X 4. NO S/S OF PAIN NOTED AT THIS TIME. ON ROOM AIR, BREATHING EVEN AND UNLABORED, NO DISTRESS OR SOB NOTED. NO IV ACCESS, PATIENT REFUSED INSERTION, MD AWARE. WITH HD ACCESS RIGHT CHEST WALL, COVERED WITH TEGADERM, INTACT. SAFETY MEASURES MAINTAINED. PATIENT WILL ORDER ONCE WITH PLACEMENT. WILL ENDORSE TO THE NEXT SHIFT.
--- NOTE | 2023-03-13 19:20 | NUR ---
MS RN OPENING NOTE PATIENT SLEEPING IN BED, EASILY AWAKENED, PT ALERT/ORIENTED X 3, PT ABLE TO MAKE NEEDS KNOWN. PATIENT STABLE ON RA, NO S/S OF DISTRESS OR SOB NOTED, BREATHING EVEN AND UNLABORED. NO IV ACCESS, PT CONTINUES TO REFUSE. RIGHT CHEST WALL HD CATH INTACT, DRESSING C/D/I. SAFETY MEASURES IN PLACE: CALL LIGHT WITHIN REACH, SIDE RAILS UP X 3, BED LOCKED IN LOWEST POSITION, BED ALARM ON. WILL CONTINUE TO MONITOR PATIENT
[2023-03-13 20:00] VITALS: BP 164/82
--- NOTE | 2023-03-13 20:31 | NUR ---
RN NOTE PATIENT PURPOSELY LAID ON FLOOR, STATES HE DIDN'T HIT HIS HEAD OR ANY OTHER BODY PART. PATIENT ASSISTED TO BED, BECAME AGITATED AND HOSTILE, PT HIT PLAN MANAGER. SECURITY CALLED. PATIENT INSISTING TO HAVE DIAPER CHANGED DESPITE BEING CHANGED 5 MINUTES AGO AND HAVING A CLEAN DIAPER AT THIS TIME. PATIENT REFUSING TO LAY IN BED, SITTING ON SIDE OF BED. WILL CONTINUE TO MONITOR PATIENT
[2023-03-13] MEDS: ATORVASTATIN 40 MG TABLET PO SCH (22:00)
[2023-03-13] MEDS: INSULIN GLARGINE, 100 UNIT/ML CARTRIDGE SQ SCH (22:00)
[2023-03-13] MEDS: LATANOPROST EYE DROP 0.005% 2.5 ML BOTTLE RIGHTEYE SCH (22:00)
[2023-03-14] MEDS: ONDANSETRON 4 MG TAB.RAPDIS PO PRN (01:48)
--- NOTE | 2023-03-14 07:20 | NUR ---
MS RN CLOSING NOTE PATIENT SLEEPING IN BED, EASILY AWAKENED, PT ALERT/ORIENTED X 3, PT ABLE TO MAKE NEEDS KNOWN. PATIENT STABLE ON RA, NO S/S OF DISTRESS OR SOB NOTED, BREATHING EVEN AND UNLABORED. NO IV ACCESS, PT CONTINUES TO REFUSE. RIGHT CHEST WALL HD CATH INTACT, DRESSING C/D/I. PATIENT REFUSED MEDS AND ACCU CHECKS ALL SHIFT. SAFETY MEASURES IN PLACE: CALL LIGHT WITHIN REACH, SIDE RAILS UP X 3, BED LOCKED IN LOWEST POSITION, BED ALARM ON. WILL ENDORSE TO DAYSHIFT RN FOR CONTINUITY OF CARE
[2023-03-14] MEDS: BLOOD SUGAR DIAGNOSTIC 1 EACH STRIP VI SCH ×2 (07:30→11:42)
--- NOTE | 2023-03-14 07:52 | NUR ---
RN OPENING NOTE- PATIENT CURRENTLY SLEEPING IN BED, EASILY AWAKENED, PT ALERT/ORIENTED , PT ABLE TO MAKE NEEDS KNOWN. PATIENT STABLE ON RA, NO S/S OF DISTRESS OR SOB NOTED, BREATHING NON-LABORED. NO IV ACCESS, PT CONTINUES TO REFUSE. RIGHT CHEST WALL HD CATH INTACT, DRESSING C/D/I. SAFETY MEASURES IN PLACE: CALL LIGHT WITHIN REACH, SIDE RAILS UP X 3, BED LOCKED IN LOWEST POSITION, BED ALARM ON. WILL CONTINUE TO MONITOR / ASSIST
[2023-03-14 08:18] VITALS: BP 172/75
[2023-03-14] MEDS: CHOLECALCIFEROL 1,000 UNIT TABLET (VIT D3) PO SCH (08:44)
[2023-03-14] MEDS: ACIDOPHILUS/BULGARICUS 1 EACH TAB.CHEW PO SCH (08:44)
[2023-03-14] MEDS: AMLODIPINE BESYLATE 10 MG TABLET PO SCH (08:45)
[2023-03-14] MEDS: LABETALOL HCL (100MG) 100 MG TABLET PO SCH (08:45)
[2023-03-14] MEDS: ESCITALOPRAM OXALATE (10 MG) 10 MG TABLET PO SCH (08:45)
[2023-03-14] MEDS: BRIMONIDINE TARTRATE OPHT SOLN 5 ML BOTTLE OP SCH ×3 (08:48→12:37)
[2023-03-14] MEDS: NEPRO VAN 237 ML CAN PO SCH ×2 (08:48→12:37)
[2023-03-14] MEDS: CLOTRIMAZOLE 1% 15 GM TUBE TP SCH ×2 (08:48→08:53)
[2023-03-14 16:01] VITALS: BP 150/76
--- NOTE | 2023-03-14 16:01 | NUR ---
RN NOTE- DISCHARGE TO [facility]. REPORT PHONED INTO FACILITY. PT VS STABLE. REFUSED PHOTOS AND MEDS, REFUSED ACCU CHECKS. TO FACILITY FOR HOSPICE EVAL AND CARE. ID [id number] REMOVED, ESCORTED OFF UNIT BY STAFF.
== END 2023-03-14 16:00 | DRG 194 ==
LOC: ER 11:30 → TELE 16:02 → MED 03-08 14:52
PROVIDERS: ADMIT Internal Medicine; ATTEND Internal Medicine
PROC: 5A1D70Z Performance of Urinary Filtration, Intermittent, Less than 6 Hours Per Day (ICD-10-PCS; principal; 2023-03-05)
DX: I13.2 Hypertensive heart and chronic kidney disease with heart failure and with stage 5 chronic kidney disease, or end stage renal disease (principal); N18.6 End stage renal disease; E86.0 Dehydration; E11.22 Type 2 diabetes mellitus with diabetic chronic kidney disease; D63.1 Anemia in chronic kidney disease; I69.351 Hemiplegia and hemiparesis following cerebral infarction affecting right dominant side; E83.9 Disorder of mineral metabolism, unspecified; R62.7 Adult failure to thrive; Z99.2 Dependence on renal dialysis; Z91.158 Patient's noncompliance with renal dialysis for other reason; E78.5 Hyperlipidemia, unspecified; E87.5 Hyperkalemia; H54.7 Unspecified visual loss; R11.2 Nausea with vomiting, unspecified; R19.7 Diarrhea, unspecified; F32.A Depression, unspecified; Z91.199 Patient's noncompliance with other medical treatment and regimen due to unspecified reason; Z79.899 Other long term (current) drug therapy; Z91.148 Patient's other noncompliance with medication regimen for other reason; Z79.4 Long term (current) use of insulin; I50.9 Heart failure, unspecified; Z20.822 Contact with and (suspected) exposure to COVID-19
CPT/HCPCS: 36415; 71045-TC; 80048-TC; 80053-TC; 80076-TC; 82962-TC; 83605-TC; 84484-TC; 85025-TC; 86705; 86706; 87040-TC; 87081-TC; 87340; 90935-TC; C9803; G0378; J1815; J2405; J7030; Q0162

== ENCOUNTER 2023-03-19 20:31 | Inpatient (IN) | payer OTHER ==
[~2023-03-19] VITALS: Ht 165.1 cm; Wt 51.7 kg
[~2023-03-19 20:31] MED LIST changes: +ATOR20TA PO; +BRIM5DRO3 RIGHTEYE; +CHOL500052 PO; +CLON0.1T PO; -DIPH1TAB PO; -DOXY100T2 PO; -EPOE40007 SQ; -INSU100V39 SQ; +NUT.237L67 PO; -PANT40TA2 PO; -SEVE2.4P3 PO; -SODI10PO PO
--- NOTE | 2023-03-19 20:45 | NUR ---
[facility]IALYS[facility] (NORMALLY M/W/F), LAST WAS 1 WK AGO. PT OPTED TO BE IN HOSPICE X5 DAYS THEN CHANGED HIS MIND. PLACED IN BED, IN NAD, BUT NOT COOPERATIVE. REFUSING SOME VITALS TO BE TAKEN.
--- NOTE | 2023-03-19 20:50 | NUR ---
COVID SWAB COLLECTED, SENT TO LAB
--- NOTE | 2023-03-19 21:29 | NUR ---
CHYRON OPERATOR AT BEDSIDE
[2023-03-19 22:13] LABS: BASOPHILS # (AUTO) 0.1 K/uL (0.0-0.2); BASOPHILS % (AUTO) 1.4 % (0.0-2.0); EOSINOPHILS % (AUTO) 1.1 % (0.0-6.0); HEMATOCRIT 29 % (39-51); HEMOGLOBIN 9.1 g/dL (13.5-17.5); LYMPHOCYTES # (AUTO) 0.4 K/uL (0.8-4.8); LYMPHOCYTES % (AUTO) 7.1 % (20.0-44.0); MEAN CORPUSCULAR HGB CONC 32 g/dl (31.0-36.0); MEAN CORPUSCULAR VOLUME 85 fL (80-96); MONOCYTES # (AUTO) 0.4 K/uL (0.1-1.30); MONOCYTES % (AUTO) 6.1 % (2.0-12.0); NEUTROPHILS % (AUTO) 84.3 % (43.0-81.0); PLATELET COUNT (AUTO) 162 K/uL (150-450); RED BLOOD CELL COUNT(AUTO) 3.38 MIL/uL (4.5-6.0); WHITE BLOOD COUNT (AUTO) 5.9 K/uL (4.3-11.0)
[2023-03-19 22:37] LABS: ALBUMIN 3.3 g/dL (3.4-5.0); BILIRUBIN,DIRECT 0.2 mg/dL (0.0-0.2); BILIRUBIN,TOTAL 0.7 mg/dL (0.2-1.0); CALCIUM, SERUM 9.1 mg/dL (8.5-10.1); TOTAL PROTEIN, SERUM 7.4 g/dL (6.4-8.2)
[2023-03-19 22:42] LABS: CREATININE 8.3 mg/dL (0.6-1.3)
--- NOTE | 2023-03-19 22:46 | NUR ---
CRITICAL RESULTS: POTASSIUM 7 CREATININE 8.3
--- NOTE | 2023-03-19 22:56 | NUR ---
DR JAELYN DUNN ON PHONE CALL WITH DR VALERIO MACHINE FINISHER
[2023-03-19] MEDS ORDERED: SODIUM BICARBONATE SYR 50 MEQ/50 ML DISP.SYRIN IV ONE (23:00)
[2023-03-19] MEDS ORDERED: INSULIN REGULAR, HUMAN 100 UNIT/ML 10 ML VIAL IV ONE (23:00)
[2023-03-19] MEDS ORDERED: SODIUM POLYSTYRENE SULFONATE 15 G/60 ML BOTTLE PO ONE (23:00)
[2023-03-19] MEDS ORDERED: DEXTROSE 50%-WATER 50 ML DISP.SYRIN IV ONE (23:00)
[2023-03-19] MEDS ORDERED: CALCIUM CHLORIDE 1,000 MG/10 ML DISP.SYRIN IV ONE (23:00)
[2023-03-19] MEDS ORDERED: ACETAMINOPHEN 325 MG TABLET PO ONE (23:00)
--- NOTE | 2023-03-19 23:04 | NUR ---
CALLED RT FOR BREATHING TX
[2023-03-19] MEDS: ALBUTEROL FS 2.5 MG/3 ML VIAL.NEB NEB ONE ×2 (23:10→23:30)
--- NOTE | 2023-03-19 23:30 | NUR ---
MD AT BEDSIDE, AWARE OF PT'S REFUSAL FOR BREATHING TX AND TAKING PO KAYEXALATE.
--- NOTE | 2023-03-19 23:30 | NUR ---
PT K+ 7.0, REFUSED KAYEXALATE. TOLD THIS RN MULTIPLE TIMES TO "FUCK OFF". EDUCATED ON THE RISK AND BENEFITS OF TAKING PO KAYEXALATE DUE TO HIS ELEVATED POTASSIUM. PT AAOX4 ABLE TO MAKE NEEDS KNOWN.
--- NOTE | 2023-03-19 23:30 | NUR ---
PT REFUSED BREATHING TX; DR JAELYN DUNN AWARE
--- NOTE | 2023-03-19 23:33 | NUR ---
MOVE SHEET SUBMITTED
--- NOTE | 2023-03-19 23:53 | NUR ---
HD NURSE AT PT'S BEDSIDE
--- NOTE | 2023-03-20 00:11 | NUR ---
S/W BHAVNA Roth/Yan FROM [facility] SA[facility] PROVIDED VERBAL AUTH FOR OBS
--- NOTE | 2023-03-20 01:29 | NUR ---
HD DONE; 2L OUTPU Addendum: 03/20/23 at 0130 by JISIP HD DONE; 2L OUTPUT. VSS
--- NOTE | 2023-03-20 03:00 | NUR ---
PT REMOVED BP CUFF, PULSE OX. REFUSED TO HAVE VITALS TAKEN.
[2023-03-20] MEDS ORDERED: ONDANSETRON HCL/PF 4 MG/2 ML VIAL IVP PRN (05:00)
[2023-03-20] MEDS ORDERED: MAGNESIUM HYDROXIDE 30 ML UDC PO PRN (05:00)
[2023-03-20] MEDS ORDERED: MAG HYDROX/AL HYDROX/SIMETH 30 ML UDC PO PRN (05:00)
[2023-03-20] MEDS ORDERED: Z GUARD REMEDY 4 OZ OINT TP PRN (05:00)
--- NOTE | 2023-03-20 05:00 | NUR ---
PT REFUSES TO HAVE VITALS TAKEN.
--- NOTE | 2023-03-20 05:10 | NUR ---
PATIENT REFUSED MORNING LABS AND VITAL SIGNS. MIKAL MACE AWARE. ELEVATOR REPAIRER HELPER WILL TRY AGAIN LATER.
--- NOTE | 2023-03-20 06:14 | NUR ---
Isabelle dumont in [place] - 03/20/23 at 0627 by NORMAN [phone]
--- NOTE | 2023-03-20 06:27 | NUR ---
REPORT GIVEN TO 3W RN FOR JORGE
--- NOTE | 2023-03-20 06:50 | NUR ---
PT TRANSFERRING TO 321-1 VIA ACLS PROTOCOL. VSS. ALL BELONGINGS WITH PT.
[2023-03-20 07:00] VITALS: BP 176/99
--- NOTE | 2023-03-20 07:15 | NUR ---
MS LODGING FACILITIES MANAGER NOTES RECEIVED PATIENT RESTING IN BED, ALERT/ORIENTED X4, ABLE TO MAKE NEEDS KNOWN. ON ROOM AIR. WITH EVEN AND UNLABORED BREATHING. WITH HEMODIALYSIS ACCESS ON RIGHT CHEST WALL AND LEFT FOREARM G#20 ON SALINE LOCK, INTACT AND PATENT. PATIENT WITH ADMITTING DIAGNOSIS OF HYPERKALEMIA=7.0 WITH HISTORY OF REFUSING DIALYSIS. S/P DIALYSIS IN ED 2 LITERS OUT. DID INITIAL ASSESSMENT, INITIAL INTERVENTIONS AND CARE PLAN DONE. PATIENT SAFETY MEASURES PROVIDED. CALL LIGHT WITHIN EASILY REACH. WILL CONTINUE WITH PLAN OF CARE.
[2023-03-20] MEDS ORDERED: DEXTROSE 50%-WATER 50 ML DISP.SYRIN IV PRN (11:00)
[2023-03-20] MEDS: BLOOD SUGAR DIAGNOSTIC 1 EACH STRIP IN SCH ×3 (12:00→22:11)
[2023-03-20] MEDS: ACETAMINOPHEN 325 MG TABLET PO PRN (14:22)
[2023-03-20 15:50] VITALS: BP 157/86
[2023-03-20] MEDS: INSULIN REGULAR, HUMAN 100 UNIT/ML 3 ML VIAL SQ PRN ×2 (17:37→22:12)
[2023-03-20 17:55] LABS: POTASSIUM 5.5 mmol/L (3.5-5.1)
[2023-03-20 17:56] LABS: ALBUMIN 3.2 g/dL (3.4-5.0); BILIRUBIN,TOTAL 0.6 mg/dL (0.2-1.0); CALCIUM, SERUM 8.9 mg/dL (8.5-10.1); CREATININE 5.6 mg/dL (0.6-1.3); PHOSPHORUS 3.8 mg/dL (2.5-4.9)
[2023-03-20 17:57] LABS: MAGNESIUM 2.4 mg/dL (1.8-2.4); TOTAL PROTEIN, SERUM 7.4 g/dL (6.4-8.2)
--- NOTE | 2023-03-20 18:58 | NUR ---
MS RN CLOSING NOTES PATIENT COMFORTABLY RESTING IN BED. ALERT/ORIENTED X4. TOLERATING ROOM AIR. NOT IN ANY FORM OF DISTRESS. HD ACCESS ON RIGHT CHEST WALL AND RFA G#20, INTACT AND PATENT. ACCU CHECK DONE ORDERED LATEST 228, PATIENT REFUSED INSULIN. ADMINISTRED PAIN MEDICATION TYLENOL GIVEN 1422 AND REASSESS FOR EFFECTIVENESS. INFORMED HOSPITALIST POST OF PATIENT'S LATEST SERUM K-5.5 AND SODIUM 137. WILL CONTINUE TO ENCOURAGE COMPLIANCE IN ALL ASPECTS OF CARE. WILL ENDORSE TO PM SHIFT ACCORDINGLY.
--- NOTE | 2023-03-20 19:55 | NUR ---
WIRE BRUSH MAKER OPENING NOTES RECEIVED PATIENT COMFORTABLY RESTING IN BED. AWAKE, ALERT AND ORIENTED. A/O X4. ON ROOM AIR, BREATHING EVEN AND UNLABORED , NO DISTRESS OR SOB NOTED AT THIS TIME. HD ACCESS ON RIGHT CHEST WALL AND RFA G#20, INTACT AND PATENT. IV ACCESS LFA #20G, INTACT AND PATENT. SAFETY MEASURES IN PLACE WITH BED IN LOWEST LOCKED POSTION. SIDE RAILS UP X 2. CALL LIGHT AND TRAY WITHIN EASY REACH. WILL CONTINUE WITH THE PLAN OF CARE.
[2023-03-20 20:20] VITALS: BP 140/77
[2023-03-20] MEDS: ZOLPIDEM TARTRATE 5 MG TABLET PO PRN (22:02)
--- NOTE | 2023-03-20 22:05 | NUR ---
RN NOTES-AMBIEN GIVEN AMBIEN 5MG GIVEN PRN PER PATIENT'S REQUEST FOR SLEEP. WILL CONTINUE TO MONITOR THE PATIENT.
[2023-03-21 04:22] VITALS: BP 155/91
[2023-03-21] MEDS: BLOOD SUGAR DIAGNOSTIC 1 EACH STRIP IN SCH ×4 (06:57→22:46)
[2023-03-21 07:00] VITALS: BP 167/92
--- NOTE | 2023-03-21 07:16 | NUR ---
VEGETABLE FARM WORKER CLOSING NOTES PATIENT COMFORTABLY RESTING IN BED. AWAKE, ALERT AND ORIENTED. A/O X4. ON ROOM AIR, BREATHING EVEN AND UNLABORED , NO DISTRESS OR SOB NOTED AT THIS TIME. HD ACCESS ON RIGHT CHEST WALL AND RFA G#20, INTACT AND PATENT. IV ACCESS LFA #20G, INTACT AND PATENT. ALL NEEDS ATTENDED. SAFETY MEASURES MAINTAINED. WILL ENDORSE TO THE NEXT SHIFT.
--- NOTE | 2023-03-21 07:30 | NUR ---
COLON AND RECTAL SURGEON NOTES PT AWAKE, SITTING IN BED, ALERT AND ORIENTED, NO COMPLAINT OF PAIN, NOT IN DISTRESS, CALL LIGHT WITHIN, KEPT COMFORTABLE IN BED.
[2023-03-21] MEDS: ACETAMINOPHEN 325 MG TABLET PO PRN (10:22)
[2023-03-21 11:34] LABS: CALCIUM, SERUM 8.5 mg/dL (8.5-10.1); CREATININE 3.2 mg/dL (0.6-1.3); MAGNESIUM 2.1 mg/dL (1.8-2.4); POTASSIUM 3.9 mmol/L (3.5-5.1)
[2023-03-21 11:55] LABS: BASOPHILS # (AUTO) 0.1 K/uL (0.0-0.2); BASOPHILS % (AUTO) 1.7 % (0.0-2.0); EOSINOPHILS % (AUTO) 3.7 % (0.0-6.0); HEMATOCRIT 27 % (39-51); HEMOGLOBIN 8.4 g/dL (13.5-17.5); LYMPHOCYTES # (AUTO) 0.3 K/uL (0.8-4.8); LYMPHOCYTES % (AUTO) 8.8 % (20.0-44.0); MEAN CORPUSCULAR HGB CONC 32 g/dl (31.0-36.0); MEAN CORPUSCULAR VOLUME 86 fL (80-96); MONOCYTES # (AUTO) 0.3 K/uL (0.1-1.30); MONOCYTES % (AUTO) 7.1 % (2.0-12.0); NEUTROPHILS % (AUTO) 78.7 % (43.0-81.0); PLATELET COUNT (AUTO) 150 K/uL (150-450); WHITE BLOOD COUNT (AUTO) 3.8 K/uL (4.3-11.0)
[2023-03-21 12:00] VITALS: BP 162/86
[2023-03-21 16:00] VITALS: BP 161/96
--- NOTE | 2023-03-21 18:29 | NUR ---
STEAM BONE PRESS TENDER NOTES PT IN BED, AWAKE, ALERT AND ORIENTED, DENIES PAIN, NOT IN DISTRESS, COMPLETED DIALYSIS TODAY, TOLERATED WELL, DR. VALERIO INFORMED OF PHOS LEVEL, AWAITING ORDERS, CALL LIGHT WITHIN REACH, ALL NEEDS ATTENDED.
--- NOTE | 2023-03-21 19:20 | NUR ---
MAIL ROOM NOTES RECEIVED ORDER FROM DR. VALERIO TO GIVE NEUTRA PHOS TAB 250 MG X 1 FOR PHOS REPLACEMENT, NOTED AND CARRIED OUT.
[2023-03-21] MEDS ORDERED: K PHOS NEUTRAL 250 MG TABLET PO ONE (19:30)
--- NOTE | 2023-03-21 19:30 | NUR ---
REFINING STILL OPERATOR OPENING NOTES RECEIVED PT COMFORTABLY RESTING IN BED. AWAKE, ALERT AND ORIENTED. A/O X4. ON ROOM AIR, BREATHING EVEN AND UNLABORED , NO DISTRESS OR SOB NOTED AT THIS TIME. PATIENT STILL REFUSES TO PLACE PERSONALIZED LIVING MANAGER. HD ACCESS ON RIGHT CHEST WALL. IV ACCESS RFA G#20, INTACT AND PATENT. S/P HEMODIALYSIS 2L. SAFETY MEASURES IN PLACE: BED LOCKED AND IN LOW POSITION, SIDE RAILS UP X3, CALL LIGHT AND TRAY TABLE WITHIN REACH. WILL CONTINUE TO MONITOR AND ASSIST.
[2023-03-21 20:00] VITALS: BP 128/77
--- NOTE | 2023-03-21 20:11 | NUR ---
RN NOTE PT AGREED TO TAKE THE NEUTRA PHOS TAB 250 MG. ASKED TABLET TO BE CUT IN HALF. ONCE PT TOOK HALF OF TABLET, PT REFUSED TO TAKE THE REST SAYING HE DOES NOT WANT IT ANYMORE. EXPLAINED THAT HE NEEDS TO TAKE THE FULL DOSE PER MD ORDERS BUT PT STILL REFUSED AND STATES "I DONT CARE WHAT THE DOCTOR SAYS". EXPLAINED RISK/BENEFITS, PT STILL REFUSED.
[2023-03-21] MEDS: INSULIN REGULAR, HUMAN 100 UNIT/ML 3 ML VIAL SQ PRN (22:46)
[2023-03-22] MEDS: BLOOD SUGAR DIAGNOSTIC 1 EACH STRIP IN SCH ×4 (06:48→22:00)
[2023-03-22] MEDS: INSULIN REGULAR, HUMAN 100 UNIT/ML 3 ML VIAL SQ PRN ×2 (06:49→18:09)
--- NOTE | 2023-03-22 06:49 | NUR ---
RN NOTE PATIENT BLOOD SUGAR: 92. GIVEN 2 ORANGE JUICE AT THIS TIME.
[2023-03-22 07:00] VITALS: BP 163/94
--- NOTE | 2023-03-22 07:00 | NUR ---
MUSIC DEPARTMENT CHAIR CLOSING NOTES PT IN BED RESTING AT THIS TIME, EASILY AROUSABLE. A/O X4. STABLE ON ROOM AIR, BREATHING EVEN AND UNLABORED , NO DISTRESS OR SOB NOTED AT THIS TIME. PATIENT STILL REFUSES TO PLACE ENTERPRISE SYSTEMS ARCHITECT. HD ACCESS ON RIGHT CHEST WALL. IV ACCESS RFA G#20, INTACT AND PATENT. S/P HEMODIALYSIS 2L ON 03/21/23. ALL CARE PROVIDED AND MEDS TOLERATED WELL. SAFETY MEASURES MAINTAINED: BED LOCKED AND IN LOW POSITION, SIDE RAILS UP X3, CALL LIGHT AND TRAY TABLE WITHIN REACH. WILL ENDORSE JORGE TO DAY SHIFT NURSE. Addendum: 03/22/23 at 0740 by MARGOT CORONADO RN PT REFUSED 0000 AND 0400 VITAL SIGNS.
--- NOTE | 2023-03-22 07:20 | NUR ---
RN OPENING NOTES PATIENT AWAKE IN BED, A/O X3. NO S/S OF PAIN NOTED AT THIS TIME. ON ROOM AIR. BREATHING EVEN AND UNLABORED, NO DISTRESS OR SHORTNESS OF BREATH NOTED. IV ACCESS LFA #20G, INTACT AND PATENT, FLUSHING WELL. PATIENT HAS HD ACCESS ON RIGHT CHEST WALL. FALL AND SAFETY MEASURES IN PLACE AND MAINTAINED AT ALL TIMES. BED ALARM ON, BED IN LOW AND LOCK POSITION. CALL LIGHT AND TABLE WITHIN EASY REACH, SIDE RAILS UP X 2. WILL CONTINUE TO MONITOR THE PATIENT.
--- NOTE | 2023-03-22 09:21 | NUR ---
RN NOTE VITAL SIGNS CHECKED WITH BLOOD PRESSURE OF 163/94 VIA AUTOMATIC BP MACHINE. PATIENT REFUSES RECHECKING BLOOD PRESSURE VIA MANUAL BP CUFF. REFUSES PRN BP MEDICATION. INFORMED VIA TEXT.
[2023-03-22] MEDS: hydrALAZINE HCL IV 20 MG VIAL IV PRN ×2 (10:48→15:53)
--- NOTE | 2023-03-22 11:00 | NUR ---
RN NOTE DR POST MADE ROUNDS AND ORDER FOR C XRAY. CALLED RADIOLOGY AND WAS INFORMED THAT THEY WILL DO IT TODAY. WILL CONTINUE TO MONITOR PATIENT
[2023-03-22] MEDS: ACETAMINOPHEN 325 MG TABLET PO PRN ×2 (12:01→20:12)
--- NOTE | 2023-03-22 12:01 | NUR ---
RN NOTE PATIENT COMPLAINS OF GENERALIZED PAIN WITH PAIN SCALE OF 3. TYLENOL PRN MEDICATION ADMINISTERED. WILL CONTINUE TO MONITOR THE PATIENT
[2023-03-22 12:02] VITALS: BP 190/107
[2023-03-22 16:00] VITALS: BP 169/93
--- NOTE | 2023-03-22 16:05 | NUR ---
RN NOTE CALLED RADIOLOGY TO FOLLOW UP ON THE CXRAY. SPOKE WITH JOSS AND HE CONFIRMED THAT THEY WILL DO IT TODAY. WILL CONTINUE TO MONITOR PATIENT
--- NOTE | 2023-03-22 17:00 | NUR ---
RN NOTE PATIENT REFUSES MEDICATION. EDUCATED ABOUT THE CONSEQUENCES OF BEING NON COMPLIANT TO MEDS. PATIENT IS PASSIVE ABOUT THE INFORMATION GIVEN INFORMING RN THAT HE WILL TAKE IT LATER. CHARGE NURSE AWARE. WILL CONTINUE TO MONITOR PATIENT.
--- NOTE | 2023-03-22 18:21 | NUR ---
RN NOTE PATIENT AGREED TO GET THE INSULIN FOR BLOOD SUGAR OF 175. AFTER SCANNING THE MEDICATION, PATIENT CHANGED MIND AND REFUSED TO TAKE IT. EDUCATED ABOUT CONSEQUENCES OF NON COMPLIANCE, PATIENT STILL INSISTED NOT TO TAKE IT. CHARGE NURSE AWARE
--- NOTE | 2023-03-22 19:29 | NUR ---
RN CLOSING NOTES PATIENT AWAKE IN BED, A/O X3. NO S/S OF PAIN NOTED AT THIS TIME. ON ROOM AIR. BREATHING EVEN AND UNLABORED, NO DISTRESS OR SHORTNESS OF BREATH NOTED. IV ACCESS LFA #24G, INTACT AND PATENT, FLUSHING WELL. PATIENT HAS HD ACCESS ON RIGHT CHEST WALL. FALL AND SAFETY MEASURES IN PLACE AND MAINTAINED AT ALL TIMES. BED ALARM ON, BED IN LOW AND LOCK POSITION. CALL LIGHT AND TABLE WITHIN EASY REACH, SIDE RAILS UP X 2. WILL ENDORSE TO HARDWARE SALES ASSISTANT NURSE.
[2023-03-22 20:00] VITALS: BP 148/78
--- NOTE | 2023-03-22 20:27 | NUR ---
MOBILE SALES CONSULTANT OPENING NOTES; RECEIVED PATIENT AWAKE IN BED =, BE DIN LOW POSITION , CALL LIGHTS WITHIN REACH, NO COMPLAIN OF PAIN AND DISCOMFORT AT THIS TIME, ON ROOM AIR SATURATING WELL, PATIENT IS A/OX3-4 ABLE TO MAKE NEEDS KNOWN, ON HEMODIALYSIS HD CATH AT RIGHT CHEST WALL NO BLEEDING WAS OBSERVED, PATIENT KEPT CLEAN AND DRY ALL NEEDS MET WILL CONTINUE TO MONITOR.
--- NOTE | 2023-03-22 22:22 | NUR ---
RN NOTES: PATIENT REFUSED BLOOD SUGAR CHECK AT BED TIME OFFERED 3X EXPLAIN RISK AND BENEFITS PATIENT REFUSED WILL CONTINUE TO MONITOR.
[2023-03-22] MEDS: ZOLPIDEM TARTRATE 5 MG TABLET PO PRN (23:24)
--- NOTE | 2023-03-23 06:22 | NUR ---
RESEARCH PHLEBOTOMIST CLOSING NOTES: PATIENT SLEEP IN BED COMFORTABLY, AROUSABLE TO VERBAL STIMULI, BE DIN LOW POSITION, CALL LIGHTS WITHIN REACH, NO COMPLAIN OF PAIN AND DISCOMFORT AT THIS TIME, ON ROOM AIR SATURATING WELL PATIENT IS A/O X3-4 ABLE TO EXPRESS NEEDS, REFUSED TELE MONITOR-, PATIENT KEPT CLEAN AND DRY ALL NEEDS MET ENDORSE TO INCOMING SHIFT.
[2023-03-23] MEDS: BLOOD SUGAR DIAGNOSTIC 1 EACH STRIP IN SCH ×4 (06:49→21:48)
--- NOTE | 2023-03-23 06:49 | NUR ---
RN NOTES: BLOOD SUGAR-112/ NO INSULIN GIVEN PER SLIDING SCALE,
--- NOTE | 2023-03-23 07:29 | NUR ---
MS RN OPENING NOTE Received pt in bed, awake. A/O x 4, able to make needs known. No c/o pain/discomfort at this time. On room air, tolerating well. IV access in LFA #24, sl. HD cath in the right chest wall, c/d/i. Safety measures maintained: bed in lowest locked position, side rails up x 3, call light and tray table within easy reach. Will continue to monitor.
[2023-03-23 07:30] VITALS: BP 178/94
[2023-03-23] MEDS: hydrALAZINE HCL IV 20 MG VIAL IV PRN ×4 (07:39→21:52)
--- NOTE | 2023-03-23 07:45 | NUR ---
RN NOTE Patient BP-176/86, MO-85, rechecked manual BP-180/90, Apresolin 10mg/0.5ml IV prn given at 0739. Will continue to monitor.
--- NOTE | 2023-03-23 08:30 | NUR ---
RN NOTE Patient refused BP rechecked.
--- NOTE | 2023-03-23 12:23 | NUR ---
RN NOTE Patient refused blood sugar check due at 1200.
--- NOTE | 2023-03-23 14:00 | NUR ---
RN NOTE Patient is agitated, Charge Nurse and MD aware.
[2023-03-23 16:00] VITALS: BP 162/90
[2023-03-23] MEDS: ACETAMINOPHEN 325 MG TABLET PO PRN (16:21)
--- NOTE | 2023-03-23 16:25 | NUR ---
RN NOTE Patient verbalized he is not feeling well and pain all over his body, Tylenol 650mg tab prn given at 1621. Will continue to monitor.
--- NOTE | 2023-03-23 16:25 | NUR ---
RN NOTE Patient BP-162/90, NE-76, Apresolin 10mg/0.5ml IV prn given at 1620. Will continue to monitor.
[2023-03-23] MEDS: INSULIN REGULAR, HUMAN 100 UNIT/ML 3 ML VIAL SQ PRN ×2 (18:12→21:49)
--- NOTE | 2023-03-23 18:51 | NUR ---
MS RN CLOSING NOTE Patient resting in bed. A/O x 3-4, able to make needs known. No c/o pain/discomfort at this time. On room air, tolerating well. IV access in LFA #24, sl. HD cath in the right chest wall, c/d/i. Needs attended. Safety measures maintained: bed in lowest locked position, side rails up x 3, call light and tray table within easy reach. Will endorse camilo to detail maker and fitter.
--- NOTE | 2023-03-23 19:30 | NUR ---
noc rn opening received patient in bed, with eyes closed, easy to arouse. no s/s of apparent distress on room air. pain chronic. RCW HD cath clean, dry, intact dressing. needs attended for now. safety in place-- bed in lowest locked position, call light within reach, side rails up X2. will continue with plan of care for patient.
[2023-03-23 20:00] VITALS: BP 176/86
--- NOTE | 2023-03-23 20:27 | NUR ---
noc rn note- non-admin Patient SBP 176, I told patient Im going to give him Apresoline and he was agreeable at first. When I pulled out the medication and about to give it to him he suddenly changed his mind and to quote "No I don't need it" "I just want to sleep right now". Risk and benefits explained to patient but he refused to listen. opened vial of Apresoline wasted on proper waste bin and the omnicell.
--- NOTE | 2023-03-23 22:04 | NUR ---
noc rn note Patient finally agreed to be given Apresoline IV. Had to pull out a new vial. will re-assess.
[2023-03-23 22:22] VITALS: BP 138/73
--- NOTE | 2023-03-23 22:35 | NUR ---
otis rn note-- BP re-assessment 138/73 hr 79, will monitor
[2023-03-23] MEDS: ZOLPIDEM TARTRATE 5 MG TABLET PO PRN (22:57)
[2023-03-24 05:57] LABS: BASOPHILS # (AUTO) 0.1 K/uL (0.0-0.2); BASOPHILS % (AUTO) 1.2 % (0.0-2.0); EOSINOPHILS % (AUTO) 1.5 % (0.0-6.0); HEMATOCRIT 30 % (39-51); HEMOGLOBIN 9.4 g/dL (13.5-17.5); LYMPHOCYTES # (AUTO) 0.6 K/uL (0.8-4.8); LYMPHOCYTES % (AUTO) 11.5 % (20.0-44.0); MEAN CORPUSCULAR HGB CONC 31 g/dl (31.0-36.0); MEAN CORPUSCULAR VOLUME 85 fL (80-96); MONOCYTES # (AUTO) 0.4 K/uL (0.1-1.30); MONOCYTES % (AUTO) 8.3 % (2.0-12.0); NEUTROPHILS # (AUTO) 3.9 K/uL (1.8-8.9); NEUTROPHILS % (AUTO) 77.5 % (43.0-81.0); PLATELET COUNT (AUTO) 168 K/uL (150-450); RED BLOOD CELL COUNT(AUTO) 3.53 MIL/uL (4.5-6.0)
[2023-03-24 06:00] LABS: CALCIUM, SERUM 8.9 mg/dL (8.5-10.1); CREATININE 3.8 mg/dL (0.6-1.3); MAGNESIUM 2.1 mg/dL (1.8-2.4); PHOSPHORUS 3.5 mg/dL (2.5-4.9)
[2023-03-24 06:09] LABS: POTASSIUM 6.4 mmol/L (3.5-5.1)
--- NOTE | 2023-03-24 06:10 | NUR ---
noc rn note- critical lab lab called for potassium 6.4 today. patient dialysis patient, made charge nurse aware and no need to inform hospitalist per charge.
[2023-03-24 07:00] VITALS: BP 167/94
[2023-03-24] MEDS: BLOOD SUGAR DIAGNOSTIC 1 EACH STRIP IN SCH ×4 (07:05→21:27)
[2023-03-24] MEDS: INSULIN REGULAR, HUMAN 100 UNIT/ML 3 ML VIAL SQ PRN ×2 (07:05→21:30)
--- NOTE | 2023-03-24 07:06 | NUR ---
otis rn note- non-admin Blood sugar 118 Hg/dL this am. no coverage needed.
--- NOTE | 2023-03-24 07:40 | NUR ---
OPENING NOTE PATIENT IS AWAKE A/Ox4 ON ROOM AIR WITH NO S/S OF SOB OR DISTRESS. IV ACCESS LFA G24 UNABLE TO ACCESS, PATIENT REFUSED. HD CATH ON THE RIGHT CHEST WALL. PATIENT SKIN ASSESSMENT REFUSED. PATIENT COMPLAINTS OF PAIN AND DISCOMFORT, WHEN ASKED PAIN LEVEL, PATIENT STATED HE DOESN'T KNOW. FALL AND SAFETY PRECAUTION IN PLACE, BED LOCKED AND AT THE LOWEST POSITION, SRx2, CALL LIGHT WITHIN REACH.
[2023-03-24] MEDS ORDERED: SODIUM POLYSTYRENE SULFONATE 15 G/60 ML BOTTLE PO ONE (11:00)
--- NOTE | 2023-03-24 11:32 | NUR ---
MEDICATION NOTE PATIENT REFUSED MEDICATION. EXPLAINED BENEFITS OF MEDICATION TO DECREASE POTASSIUM. PATIENT CONTINUED TO REFUSED, STATED "IM NOT GOING TO TAKE IT".
[2023-03-24 16:00] VITALS: BP 176/92
--- NOTE | 2023-03-24 19:00 | NUR ---
RN OPENING NOTE (CORRECT NOTE) RECEIVED PT AWAKE IN BED. A/O X4, ABLE TO MAKE NEEDS KNOWN. PT IS IN RA TOLERATING WELL, BREATHING EVEN AND UNLABORED @ THIS TIME. PT HAS NO IV PRESENT. PT PULLED HIS IV AND REFUSED A NEW IV INSERTION ENDORSED BY SHERON LARES. PT IS ON DIAPER. SAFETY MEASURES IS IN PLACE. BED IN LOWEST AND LOCK POSITION. SIDE RAILS UP X 2. BEDSIDE TABLE AND CALL LIGHT IS EASY REACH. BE ALARM IS ON. WILL CONTINUE TO MONITOR PT ACCORDINGLY.
--- NOTE | 2023-03-24 19:00 | NUR ---
RN OPENING NOTE RECEIVED PT AWAKE IN BED. PT IS A/O X 4, ABLE TO MAKE NEEDS KNOWN. PT IS IN RA TOLERATING WELL, BREATHING EVEN AND UNLABORED @ THIS TIME. PT IV PRESENT ON THE LEFT HAND #22G & RIGHT HAND #22G, PATENT, INTACT AND FLUSHES WELL W/ NO S & SX OF INFILTRATION NOTED @ THIS TIME. PT HAS PURE WICK DRAINING YELLOW COLORED URINE. SAFETY MEASURES IS IN PLACE. BED IN LOWEST AND LOCK POSITION. SIDE RAILS UP X 2. BEDSIDE TABLE AND CALL LIGHT IS EASY REACH. BED ALARM IS ON. WILL CONTINUE TO MONITOR PT ACCORDINGLY. Addendum: 03/24/23 at 2034 by WENDY CHIANG RN WRONG PT.
--- NOTE | 2023-03-24 19:10 | NUR ---
CLOSING NOTE PATIENT IS AWAKE, IN BED RESTING, A/Ox4 ON ROOM AIR WITH NO S/S OF SOB OR DISTRESS. IV ACCESS LFA G24 REMOVED BY PATIENT DURING SHIFT. PRESSURE DRESSING WAS APPLIED. NO S/S OF ACTIVE BLEEDING. REFUSED NEW IV. HD CATH ON THE RIGHT CHEST WALL REMAINS. RECEIVED HD, 2L OUTPUT. PATIENT NOT COMPLAINT WITH MEDICATION REGIME DURING SHIFT, PROVIDED VERBAL EDUCATION AND PATIENT CONTINUED TO REFUSE. FALL AND SAFETY PRECAUTION MAINTAINED, BED LOCKED AND AT THE LOWEST POSITION, SRx2, CALL LIGHT WITHIN REACH.
[2023-03-25] MEDS: BLOOD SUGAR DIAGNOSTIC 1 EACH STRIP IN SCH ×4 (06:43→22:06)
[2023-03-25] MEDS: INSULIN REGULAR, HUMAN 100 UNIT/ML 3 ML VIAL SQ PRN ×3 (06:45→22:22)
--- NOTE | 2023-03-25 06:54 | NUR ---
RN CLOSING NOTE PT AWAKE & RESTING COMFORTABLY IN BED. PT IS A/O X 4,RESPONSIVE & FOLLOWS VERBAL COMMAND. PT IS IN RA W/ NO S & SX OF RESPIRATORY DISTRESS @ THIS TIME. PT IV PRESENT ON THE LEFT HAND #22G & RIGHT HAND #22G, PATENT, INTACT AND FLUSHES WELL W/ NO S & SX OF INFILTRATION NOTED @ THIS TIME. PT IHAS PURE WICK DRAINING YELLOW COLORED URINE. SAFETY MEASURES IS IN PLACE. BED IN LOWEST AND LOCK POSITION. SIDE RAILS UP X 2. BEDSIDE TABLE AND CALL LIGHT IS EASY REACH. BED ALARM IS ON. WILL ENDORSE TO THE NEXT SHIFT FOR JORGE. Addendum: 03/25/23 at 0701 by WENDY CHIANG RN WRONG PT.
--- NOTE | 2023-03-25 07:01 | NUR ---
RN CLOSING NOTE (CORRECT NOTE) PT AWAKE & RESTING COMFORTABLY IN BED. A/O X4, RESPONSIVE & FOLLOWS VERBAL COMMAND. PT IS IN RA TOLERATING WELL, BREATHING EVEN AND UNLABORED @ THIS TIME. PT HAS NO IV PRESENT. PT IS ON DIAPER. BEDSIDE TABLE AND CALL LIGHT IS EASY REACH. SAFETY MEASURES IS IN PLACE. BED IN LOWEST AND LOCK POSITION. SIDE RAILS UP X 2. BEDSIDE TABLE AND CALL LIGHT IS EASY REACH. BE ALARM IS ON. WILL ENDORSE TO THE NEXT SHIFT FOR JORGE.
--- NOTE | 2023-03-25 08:04 | NUR ---
RN OPENING NOTE RECEIVED PT SLEEPING ON BED. ON ROOM AIR TOLERATING WELL, BREATHING EVEN AND UNLABORED. PT HAS NO IV PRESENT. PT IS ON DIAPER. SAFETY MEASURES IS IN PLACE. BED IN LOWEST LOCKED POSITION, SIDE RAILS UP X2, CALL LIGHT IS EASY REACH. BE ALARM IS ON. WILL CONTINUE TO MONITOR.
[2023-03-25] MEDS ORDERED: NEPRO VAN 237 ML CAN PO PRN (11:00)
[2023-03-25 11:15] LABS: CALCIUM, SERUM 8.5 mg/dL (8.5-10.1); CREATININE 3.2 mg/dL (0.6-1.3); MAGNESIUM 2.1 mg/dL (1.8-2.4); PHOSPHORUS 3.4 mg/dL (2.5-4.9); POTASSIUM 4.6 mmol/L (3.5-5.1)
[2023-03-25 11:32] LABS: BASOPHILS % (AUTO) 1.1 % (0.0-2.0); EOSINOPHILS % (AUTO) 1.9 % (0.0-6.0); HEMATOCRIT 27 % (39-51); HEMOGLOBIN 8.5 g/dL (13.5-17.5); LYMPHOCYTES # (AUTO) 0.9 K/uL (0.8-4.8); MEAN CORPUSCULAR HGB CONC 31 g/dl (31.0-36.0); MEAN CORPUSCULAR VOLUME 88 fL (80-96); MONOCYTES # (AUTO) 0.5 K/uL (0.1-1.30); MONOCYTES % (AUTO) 11.9 % (2.0-12.0); NEUTROPHILS # (AUTO) 2.5 K/uL (1.8-8.9); NEUTROPHILS % (AUTO) 63.1 % (43.0-81.0); PLATELET COUNT (AUTO) 126 K/uL (150-450); RED BLOOD CELL COUNT(AUTO) 3.11 MIL/uL (4.5-6.0); WHITE BLOOD COUNT (AUTO) 3.9 K/uL (4.3-11.0)
[2023-03-25] MEDS: LOPERAMIDE HCL (2 MG CAP) 2 MG CAPSULE PO PRN (12:21)
--- NOTE | 2023-03-25 13:00 | NUR ---
RN NOTE IV re-inserted on right wrist #22. Flushes well.
--- NOTE | 2023-03-25 13:04 | NUR ---
RN NOTE PATIENT BLOOD GLUCOSE IS 149 AND HE REFUSED INSULIN SLIDING SCALE. EXPLAINED THE RISK OF NOT TAKING THE MEDICATION AND STILL REFUSED.
[2023-03-25] MEDS: EPOETIN ALFA-EPBX 4,000 UNIT/ML VIAL IV SCH (13:06)
--- NOTE | 2023-03-25 15:30 | NUR ---
RN NOTE IV access pulled out, patient refusing re-insertion at this time.
[2023-03-25 16:00] VITALS: BP 190/89
--- NOTE | 2023-03-25 16:07 | NUR ---
RN NOTE CALLED FACILITY AND ASK FOR HIS CURRENT MEDICATION LIST BUT STILL WAITING FROM THEM TO FAX IT.
[2023-03-25] MEDS ORDERED: MORP20SO SL (16:31)
[2023-03-25] MEDS ORDERED: HYOS0.1275 SL (16:31)
[2023-03-25] MEDS ORDERED: ACET650S11 RC (16:31)
[2023-03-25] MEDS ORDERED: INSU100V3 SQ (16:31)
[2023-03-25] MEDS ORDERED: PROM12.513 PO (16:31)
[2023-03-25] MEDS ORDERED: LORA-259 PO (16:31)
[2023-03-25] MEDS ORDERED: BISA10SU11 RC (16:31)
[2023-03-25] MEDS ORDERED: ACETAMINOPHEN 650 MG/SUPP.RECT RC PRN (17:00)
[2023-03-25] MEDS ORDERED: ALBUTEROL HALF STRENGTH 1.25 MG/3 ML VIAL.NEB IH PRN (17:00)
[2023-03-25] MEDS ORDERED: HYOSCYAMINE SULFATE 0.125 MG TAB.SUBL SL PRN (17:00)
[2023-03-25] MEDS ORDERED: MAGNESIUM HYDROXIDE 30 ML UDC PO PRN (17:00)
[2023-03-25] MEDS ORDERED: CLONIDINE HCL 0.1 MG TABLET PO PRN (17:00)
[2023-03-25] MEDS ORDERED: LORAZEPAM 1 MG TABLET PO PRN (17:00)
[2023-03-25] MEDS ORDERED: BISACODYL SUPP (10 MG) 10 MG/SUPP.RECT SUPP.RECT RC PRN (17:00)
[2023-03-25] MEDS: LABETALOL HCL (100MG) 100 MG TABLET PO SCH (18:10)
[2023-03-25] MEDS ORDERED: PROMETHAZINE HCL SYRUP 6.25 MG/5 ML UDC PO PRN (18:30)
[2023-03-25] MEDS ORDERED: ONDANSETRON 4 MG TAB.RAPDIS PO PRN (18:30)
[2023-03-25] MEDS ORDERED: MORPHINE SULFATE IR 15 MG TABLET PO PRN (19:00)
--- NOTE | 2023-03-25 19:00 | NUR ---
RN CLOSING NOTE PATIENT IS ON BED A/O X4 , ABLE TO MAKE NEEDS KNOWN. ON ROOM AIR WITH NO SIGNS OF RESPIRATORY DISTRESS. BLOOD PRESSURE WAS 183/92 SCHEDULED LABETALOL GIVEN, ENDORSED TO RESEARCH MANUFACTURING OPERATOR THAT IF BP REMIANS ABOVE 150 TO GIVE PRN CATAPRESS AND IS AWARE. SAFETY MEASURES IS IN PLACE. BED IN LOWEST AND LOCK POSITION. SIDE RAILS UP X 2. BEDSIDE TABLE AND CALL LIGHT IS EASY REACH. BED ALARM IS ON. WILL ENDORSE TO THE NEXT SHIFT FOR JORGE.
--- NOTE | 2023-03-25 19:00 | NUR ---
RN OPENING NOTE RECEIVED PT AWAKE IN BED. PT A/O X 4, ABLE TO MAKE NEEDS KNOWN. PT IS IN RA TOLERATING WELL, BREATHING EVEN AND UNLABORED @ THIS TIME. PT HAS NO IV PRESENT. SAFETY MEASURE IS IN PLACE. BED IN LOWEST AND LOCKED POSITION. SIDE RAILS X 2. BEDSIDE TABLE AND CALL LIGHT IS EASY REACH. BED ALARM IS ON. WILL MONITOR PT ACCORDINGLY.
[2023-03-25 20:00] VITALS: BP 164/86
[2023-03-25] MEDS: ACIDOPHILUS/BULGARICUS 1 EACH TAB.CHEW PO SCH (20:11)
[2023-03-25] MEDS: ATORVASTATIN 40 MG TABLET PO SCH ×2 (22:00→22:06)
[2023-03-25] MEDS: INSULIN GLARGINE, 100 UNIT/ML CARTRIDGE SQ SCH ×2 (22:00→22:10)
[2023-03-25] MEDS: LATANOPROST EYE DROP 0.005% 2.5 ML BOTTLE RIGHTEYE SCH ×2 (22:00→22:08)
[2023-03-26 05:43] LABS: BASOPHILS # (AUTO) 0.1 K/uL (0.0-0.2); BASOPHILS % (AUTO) 1.2 % (0.0-2.0); EOSINOPHILS % (AUTO) 2.3 % (0.0-6.0); HEMATOCRIT 24 % (39-51); HEMOGLOBIN 7.5 g/dL (13.5-17.5); LYMPHOCYTES # (AUTO) 1.5 K/uL (0.8-4.8); LYMPHOCYTES % (AUTO) 30.1 % (20.0-44.0); MEAN CORPUSCULAR HGB CONC 32 g/dl (31.0-36.0); MEAN CORPUSCULAR VOLUME 86 fL (80-96); MONOCYTES # (AUTO) 0.7 K/uL (0.1-1.30); MONOCYTES % (AUTO) 13.2 % (2.0-12.0); NEUTROPHILS # (AUTO) 2.6 K/uL (1.8-8.9); NEUTROPHILS % (AUTO) 53.2 % (43.0-81.0); PLATELET COUNT (AUTO) 107 K/uL (150-450); RED BLOOD CELL COUNT(AUTO) 2.74 MIL/uL (4.5-6.0)
[2023-03-26 06:08] LABS: CALCIUM, SERUM 8.5 mg/dL (8.5-10.1); CREATININE 3.9 mg/dL (0.6-1.3); PHOSPHORUS 2.7 mg/dL (2.5-4.9); POTASSIUM 4.9 mmol/L (3.5-5.1)
[2023-03-26] MEDS: BLOOD SUGAR DIAGNOSTIC 1 EACH STRIP IN SCH ×4 (06:33→21:30)
[2023-03-26] MEDS: INSULIN REGULAR, HUMAN 100 UNIT/ML 3 ML VIAL SQ PRN ×4 (06:34→21:29)
--- NOTE | 2023-03-26 06:35 | NUR ---
HELD INSULIN REGULAR D/T PT BLOOD GLUCOSE OF 87.
--- NOTE | 2023-03-26 06:35 | NUR ---
RN CLOSING NOTE PT AWAKE IN BED. PT A/O X 4, RESPONSIVE AND FOLLOWS VERBAL COMMAND. PT IS IN RA W/ NO S&SX OF RESPIRATORY DISTRESS @ THIS TIME. PT HAS NO IV PRESENT. PT DIAPER X 3. PT KEPT CLEAN AND DRY. SAFETY MEASURE IS IN PLACE. BED IN LOWEST AND LOCKED POSITION. SIDE RAILS X 2. BEDSIDE TABLE AND CALL LIGHT IS EASY REACH. BED ALARM IS ON. WILL ENDORSE TO THE NEXT SHIFT FOR JORGE.
[2023-03-26 07:00] VITALS: BP 169/110
--- NOTE | 2023-03-26 07:30 | NUR ---
MS RN OPENING NOTES; PT IS ASLEEP EASILY ROUSED. PT IS A/O X 4, ABLE TO MAKE NEEDS KNOWN, PER PM RN, PT HAS HISTORY OF NONCOMPLIANCE WITH TREATMENT PLAN. PT IS ON RA W/ NO S/S OF SOB. PT HAS NO IV ACCESS AT THIS TIME. PER PM RN, PT PULLED OUT MOST RECENT IV ACCESS AND DECLINES REINSERTION AT THE MOMENT; WILL ATTEMPT TO REINSERT DURING SHIFT. ALL SAFETY MEASURES ARE IN PLACE. . BEDSIDE TABLE AND CALL LIGHT WITHIN EASY REACH.WILL CONT WITH PLAN OF CARE DURING SHIFT.
[2023-03-26] MEDS: ACIDOPHILUS/BULGARICUS 1 EACH TAB.CHEW PO SCH ×2 (08:49→16:59)
[2023-03-26] MEDS: LABETALOL HCL (100MG) 100 MG TABLET PO SCH ×2 (09:00→16:59)
[2023-03-26] MEDS: BRIMONIDINE TARTRATE OPHT SOLN 5 ML BOTTLE OP SCH ×3 (09:00→17:00)
[2023-03-26] MEDS: AMLODIPINE BESYLATE 10 MG TABLET PO SCH (09:00)
--- NOTE | 2023-03-26 09:00 | NUR ---
RN NOTES HELD B/P MEDS D/T SCHEDULED HEMODIALYSIS.
[2023-03-26] MEDS: ESCITALOPRAM OXALATE (10 MG) 10 MG TABLET PO SCH (09:25)
[2023-03-26 16:00] VITALS: BP 180/82
--- NOTE | 2023-03-26 18:22 | NUR ---
MS RN CLOSING NOTES: PT IS AWAKE, A/O X 4, ABLE TO MAKE NEEDS KNOWN. PT HAS HISTORY OF NONCOMPLIANCE WITH TREATMENT PLAN AT TIMES. PT IS ON RA W/ NO S/S OF SOB. S/P HD, OUTPUT= 2L. R UPPER CW HD CATH NOTED. PER HD RN, PT REFUSED TO CHANGE CATH DRESSING, HD RN WILL RETRY AT NEXT SCHEDULED HD. PT HAS NO IV ACCESS AT THIS TIME, PT DECLINED IV INSERTION DURING SHIFT. ALL NEEDS MET, KEPT PT CLEAN DRY AND COMFORTABLE. ALL SAFETY MEASURES ARE IN PLACE; TABLE AND CALL LIGHT WITHIN EASY REACH, WILL ENDORSE TO PM SHIFT.
--- NOTE | 2023-03-26 19:49 | NUR ---
MS RN OPENING NOTES; RECEIVED PATIENT AWAKE IN BED, BED IN LOW POSITION CALL LIGHTS WITHIN REACH, NO COMPLAIN OF PAIN AND DISCOMFORT AT THIS TIME, ON ROOM AIR SATURATING WELL, PATIENT IS A/O X4 ABLE TO MAKE NEEDS KNOWN, NO IV LINE PATIENT REFUSED, WITH HD CATHETER AT RIGHT UPPER CHEST WALL NO BLEEDING WAS OBSERVED, PATIENT KEPT CLEAN AND DRY ALL NEEDS MET WILL CONTINUE TO MONITOR.
[2023-03-26 20:00] VITALS: BP 161/79
[2023-03-26] MEDS: ATORVASTATIN 40 MG TABLET PO SCH ×2 (21:07→21:31)
[2023-03-26] MEDS: LATANOPROST EYE DROP 0.005% 2.5 ML BOTTLE RIGHTEYE SCH (21:31)
[2023-03-26] MEDS: INSULIN GLARGINE, 100 UNIT/ML CARTRIDGE SQ SCH (21:31)
--- NOTE | 2023-03-26 21:31 | NUR ---
RN NOTES: PATIENT REFUSED BEDTIME MEDICATION AND EYE DROPS, AND LONG ACTING INSULIN, REGULAR INSULIN 2U GIVEN/ ALLOWED WITH BS-160 WILL CONTINUE TO MONITOR
[2023-03-26] MEDS: ZOLPIDEM TARTRATE 5 MG TABLET PO PRN (23:39)
[2023-03-27 05:43] LABS: BASOPHILS # (AUTO) 0.1 K/uL (0.0-0.2); BASOPHILS % (AUTO) 2.2 % (0.0-2.0); HEMATOCRIT 25 % (39-51); HEMOGLOBIN 7.8 g/dL (13.5-17.5); LYMPHOCYTES # (AUTO) 1.3 K/uL (0.8-4.8); LYMPHOCYTES % (AUTO) 21.6 % (20.0-44.0); MEAN CORPUSCULAR HGB CONC 32 g/dl (31.0-36.0); MEAN CORPUSCULAR VOLUME 86 fL (80-96); MONOCYTES # (AUTO) 0.4 K/uL (0.1-1.30); MONOCYTES % (AUTO) 7.4 % (2.0-12.0); NEUTROPHILS % (AUTO) 66.8 % (43.0-81.0); PLATELET COUNT (AUTO) 107 K/uL (150-450); RED BLOOD CELL COUNT(AUTO) 2.89 MIL/uL (4.5-6.0)
[2023-03-27 06:20] LABS: CALCIUM, SERUM 8.9 mg/dL (8.5-10.1); CREATININE 2.8 mg/dL (0.6-1.3); PHOSPHORUS 1.6 mg/dL (2.5-4.9)
--- NOTE | 2023-03-27 06:21 | NUR ---
MS RN CLOSING NOTES: PATIENT AWAKE IN BED, BED IN LOW POSITION CALL LIGHTS WITHIN REACH, NO COMPLAIN OF PAIN AND DISCOMFORT AT THIS TIME, ON ROOM AIR SATURATING WELL, PATIENT IS A/O X4 ABLE TO MAKE NEEDS KNOWN, NO IV LINE PATIENT REFUSED, WITH RIGHT CHEST WALL HD CATHETER, NO BLEEDING WAS OBSERVED, PATIENT KEPT CLEAN AND DRY ALL NEEDS MET ENDORSE TO INCOMING SHIFT.
[2023-03-27 06:24] LABS: POTASSIUM 6.5 mmol/L (3.5-5.1)
--- NOTE | 2023-03-27 06:53 | NUR ---
RN NOTES: BLOOD SUGAR-113/ NO INSULIN GIVEN PER SLIDING SCALE.
--- NOTE | 2023-03-27 06:54 | NUR ---
RN NOTES; RECEIVED A CRITICAL LAB OF POTASSIUM AT 6.5 NOTIFY HOSPITALIST AND ORDER TO HAVE A HEMODIALYSIS TODAY, INFORM FACILITIES ENGINEERING MANAGER DR VALERIO ENDORSE TO AM LABS FOR FOLLOW UP WILL CONTINUE TO MONITOR, PATIENT STILL REFUSED IV LINE INSERTION. WILL CONTINUE TO MONITOR.
--- NOTE | 2023-03-27 07:50 | NUR ---
MS RN OPENING NOTES; PT IS ASLEEP EASILY ROUSED. PT IS A/O X 4, ABLE TO MAKE NEEDS KNOWN, PER PM RN, PT HAS HISTORY OF NONCOMPLIANCE WITH TREATMENT PLAN. PT IS ON RA W/ NO S/S OF SOB. PT HAS NO IV ACCESS AT THIS TIME. PER PM RN, PT REFUSED IV REINSERTION, IS AWARE; WILL ATTEMPT TO REINSERT DURING SHIFT. ALL SAFETY MEASURES ARE IN PLACE. BEDSIDE TABLE AND CALL LIGHT WITHIN EASY REACH, WILL CONT WITH PLAN OF CARE DURING SHIFT.
[2023-03-27] MEDS: BLOOD SUGAR DIAGNOSTIC 1 EACH STRIP IN SCH ×4 (07:56→22:52)
[2023-03-27] MEDS: EPOETIN ALFA-EPBX 4,000 UNIT/ML VIAL IV SCH (08:48)
[2023-03-27] MEDS: LABETALOL HCL (100MG) 100 MG TABLET PO SCH ×3 (09:00→16:35)
[2023-03-27] MEDS: ESCITALOPRAM OXALATE (10 MG) 10 MG TABLET PO SCH (09:00)
[2023-03-27] MEDS: AMLODIPINE BESYLATE 10 MG TABLET PO SCH ×2 (09:00→13:25)
[2023-03-27] MEDS: BRIMONIDINE TARTRATE OPHT SOLN 5 ML BOTTLE OP SCH ×3 (09:00→17:00)
[2023-03-27] MEDS: ACIDOPHILUS/BULGARICUS 1 EACH TAB.CHEW PO SCH ×2 (09:00→16:34)
--- NOTE | 2023-03-27 09:00 | NUR ---
RN NOTES: PT REFUSED IV INSERTION, RN EXPLAINED IV ACCESS IS NEEDED FOR IV PROCRIT, PT STILL REFUSED, MD AWARE.
--- NOTE | 2023-03-27 09:40 | NUR ---
MS RN NOTES: PT REFUSED HD THIS AM, PT STATES HE "DOESN'T WANT THE BP CUFF CONTINUOUSLY ON HIS ARM. HD RN AND PRIMARY RN EXPLAINED THE IMPORTANCE OF BP MONITORING DURING HD, PT BECAME COMBATIVE AND STARTED VERBALIZING PROFANITY TO STAFF. BOTH RNS EXPLAINED THE IMPORTANCE OF HD, PT YELLED "GET LOST". HD RN WILL ATTEMPT HD ONCE PT HAS CALMED DOWN, IS AWARE.
--- NOTE | 2023-03-27 13:31 | NUR ---
RN NOTES: PER HD RN, PT BP IS ELEVATED DURING HD, BP= 199/93, HR= 91. RN TO ADMISITER AM BP MEDS HOWEVER PT REFUSED AGAIN. RN EXPLAINED RATIONALE FOR MEDICATION, PT STILL DECLINED; WILL RETURN MEDS PER PROTOCOL.
[2023-03-27] MEDS ORDERED: NEUTRA PHOS 1 POWD.PACKET NG ONE (15:30)
[2023-03-27] MEDS ORDERED: TUBERCULIN,PURIF.PROT.DERIV. 5 TU/0.1 ML DISP.SYRIN ID ONE (16:30)
--- NOTE | 2023-03-27 18:00 | NUR ---
RN NOTES-TB SKIN TEST PT REFUSED MULTIPLE TIMES BUT FINALLY PT AGREED, RN ADMINISTERED TB SKIN TEST @ 1800. SITE IS LEFT FOREARM, WILL ENDORSE TO PM SHIFT.
--- NOTE | 2023-03-27 18:41 | NUR ---
MS RN CLOSING NOTES: PT IS AWAKE, A/O X 4, ABLE TO MAKE NEEDS KNOWN, PT HAS HISTORY OF NONCOMPLIANCE WITH TREATMENT PLAN. REFUSED SOME MEDICATIONS DURING SHIFT. S/P HD, OUTPUT = 2L. HD CATH AT R UPPER CHEST WALL DRESSING CHANGED TODAY BY HD RN. PT IS ON RA W/ NO S/S OF SOB. PT HAS NO IV ACCESS AT THIS TIME. PT REFUSED IV REINSERTION DURING SHIFT, MD IS AWARE. ALL NEEDS MET, KEPT PT CLEAN, DRY AND COMFORTABLE. ALL SAFETY MEASURES ARE IN PLACE. BEDSIDE TABLE AND CALL LIGHT WITHIN EASY REACH, WILL ENDORSE TO PM SHIFT.
--- NOTE | 2023-03-27 19:17 | NUR ---
MS RN OPENING NOTES: PATIENT AWAKE IN BED, BED IN LOW POSITION CALL LIGHTS WITHIN REACH, NO COMPLAIN OF PAIN AND DISCOMFORT AT THIS TIME, ON ROOM AIR SATURATING WELL PATIENT IS A/O X 4 ABLE TO MAKE NEEDS KNOWN, NONE COMPLAINT, NO IV LINE PATIENT REFUSED, WITH HD CATH AT RIGHT CHEST WALL, HD DONE TODAY WITH 2LTS OUT, PATIENT KEPT CLEAN AND DRY ALL NEEDS MET WILL CONTINUE TO MONITOR.
[2023-03-27 20:00] VITALS: BP 157/100
[2023-03-27 21:07] VITALS: BP 157/100
[2023-03-27] MEDS: LATANOPROST EYE DROP 0.005% 2.5 ML BOTTLE RIGHTEYE SCH (22:00)
[2023-03-27] MEDS: ATORVASTATIN 40 MG TABLET PO SCH (22:00)
[2023-03-27] MEDS: INSULIN GLARGINE, 100 UNIT/ML CARTRIDGE SQ SCH (22:00)
[2023-03-27] MEDS: INSULIN REGULAR, HUMAN 100 UNIT/ML 3 ML VIAL SQ PRN (22:52)
--- NOTE | 2023-03-27 22:54 | NUR ---
RN NOTES: PATIENT REFUSED BEDTIME MEDICATION AND EYEDROPS EXPLAINE RISK AND BENEFITS PATIENT STILL REFUSED.
[2023-03-28] MEDS: LOPERAMIDE HCL (2 MG CAP) 2 MG CAPSULE PO PRN (00:12)
[2023-03-28] MEDS: ZOLPIDEM TARTRATE 5 MG TABLET PO PRN (00:36)
--- NOTE | 2023-03-28 06:43 | NUR ---
MS RN CLOSING NOTES: PATIENT AWAKE IN BED, BED IN LOW POSITION, CALL LIGHTS WITHIN REACH, NO COMPLAIN OF PAIN AND DISCOMFORT AT THIS TIME, ON ROOM AIR SATURATING WELL, NO IV LINE, PATIENT REFUSED IV INSERTION, WITH HD CATH AT RIGHT CHEST WALL, NO BLEEDING WAS OBSERVED, PATIENT KEPT CLEAN AND DRY ALL NEEDS MET ENDORSE TO INCOMING SHIFT.
--- NOTE | 2023-03-28 06:43 | NUR ---
RN NOTES: PATIENT REFUSED AM BLOOD SUGAR CHECK, REFUSED AM LABS EXPLAINED RISK AND BENEFITS PATIENT STILL REFUSED WILL CONTINUE TO MONITOR.
--- NOTE | 2023-03-28 07:24 | NUR ---
MS RN OPENING NOTES: RECEIVED PATIENT SLEEPING IN BED, AOX4,ON ROOM AIR, STABLE WITHOUT DISTRESS. BED IN LOW POSITION, CALL LIGHTS WITHIN REACH, NO COMPLAIN OF PAIN AND DISCOMFORT AT THIS TIME, , NO IV LINE, PATIENT REFUSED IV INSERTION, WITH HD CATH AT RIGHT CHEST WALL, NO BLEEDING WAS OBSERVED, PATIENT KEPT CLEAN AND DRY, WILL ADMINISTER ALL SCHEDULED MEDS AND CONTINUE TO MONITOR.
[2023-03-28] MEDS: BLOOD SUGAR DIAGNOSTIC 1 EACH STRIP IN SCH ×5 (07:30→22:00)
[2023-03-28] MEDS: BRIMONIDINE TARTRATE OPHT SOLN 5 ML BOTTLE OP SCH ×3 (09:00→17:00)
[2023-03-28] MEDS: AMLODIPINE BESYLATE 10 MG TABLET PO SCH (09:00)
[2023-03-28] MEDS: ACIDOPHILUS/BULGARICUS 1 EACH TAB.CHEW PO SCH ×2 (09:00→17:13)
[2023-03-28] MEDS: LABETALOL HCL (100MG) 100 MG TABLET PO SCH ×2 (09:00→17:13)
[2023-03-28] MEDS: ESCITALOPRAM OXALATE (10 MG) 10 MG TABLET PO SCH (09:00)
--- NOTE | 2023-03-28 09:03 | NUR ---
RN NOTES PT IS NONCOMPLIANT. REFUSED MORNING ACCUCHECK AND VITALS. PT REFUSED ALL MORNING MEDS. PT EDUCATION DONE AND REINFORCED TEACHINGS. PT STILL REFUSED. WILL CONTINUE TO MONITOR.
[2023-03-28] MEDS: INSULIN REGULAR, HUMAN 100 UNIT/ML 3 ML VIAL SQ PRN ×3 (11:49→21:18)
--- NOTE | 2023-03-28 18:45 | NUR ---
MS RN CLOSING NOTES: PATIENT SLEEPING IN BED, AOX4,ON ROOM AIR, STABLE WITHOUT DISTRESS. BED IN LOW POSITION, CALL LIGHTS WITHIN REACH, NO COMPLAIN OF PAIN AND DISCOMFORT AT THIS TIME, , NO IV LINE, PATIENT REFUSED IV INSERTION, WITH HD CATH AT RIGHT CHEST WALL, NO BLEEDING WAS OBSERVED, PATIENT KEPT CLEAN AND DRY. PM MEDS GIVEN ORDERED. POSSIBLE DISCHARGE TOMORROW. WILL ENDORSE TO NEXT SHIFT.
[2023-03-28 20:00] VITALS: BP 140/55
--- NOTE | 2023-03-28 20:00 | NUR ---
MS MEDICAL STAFFING COORDINATOR INITIAL NOTES Received pt in bed lying and he states that he feel dizzy, i spoke to him maybe his blood sugar low , his hand cold to touch, no n/v noted. He told me that he just woke up . i asked him if its Ok to checked his blood sugar and give his medication later because I just got report that he's been refusing his medication. I also asked him that if possible can re-insert a new IV line and also told the him the purpose of it , but pts denies regarding refusing his medication but he told me that he doesn't want the IV line insertion . Kept him warm and comfortable at all times. will continue monitoring.
--- NOTE | 2023-03-28 20:30 | NUR ---
MS SHERON NOTES blood sugar checked came out 73, gave juice and sandwich , pt states"thank you " . I told him that i will give his routine before 2200 . will [address] monitoring[address] place call light at reach.
[2023-03-28] MEDS: INSULIN GLARGINE, 100 UNIT/ML CARTRIDGE SQ SCH (21:15)
--- NOTE | 2023-03-28 22:00 | NUR ---
ms waxing machine operator notes pt refused to have re-check his blood sugar . no signs of any discomfort , hypo/hyper glycemia noted. Pt states I'm ok " . will continue monitoring.
[2023-03-28] MEDS: ATORVASTATIN 40 MG TABLET PO SCH (22:03)
[2023-03-28] MEDS: LATANOPROST EYE DROP 0.005% 2.5 ML BOTTLE RIGHTEYE SCH (22:07)
--- NOTE | 2023-03-29 06:06 | NUR ---
ms dea notes pt resting at this time while dialysis nurse came and started the treatment. No signs of any discomfort or any acute distress noted. He refused blood draw and blood sugar check as well will continue monitoring . place call light at reach.
--- NOTE | 2023-03-29 07:09 | NUR ---
MS RN OPENING NOTE RECEIVED PATIENT AWAKE IN BED, CURRENTLY RECEIVING DIALYSIS, A/Ox4. ON ROOM AIR, NO S/S OF RESPIRATORY DISTRESS OR DISCOMFORT. NO IV ACCESS PATIENT REFUSING. ON BEDREST USES DIAPER. SKIN ISSUES: SACRAL REDNESS. PATIENT HAS RCW HD CATH. SAFETY MEASURES IN PLACE: BED LOCKED AND IN LOWEST POSITION, HOB ELEVATED, CALL LIGHT WITHIN REACH, SIDE RAILS UPx2. WILL CONTINUE TO MONITOR.
--- NOTE | 2023-03-29 07:35 | NUR ---
Dialysis Notes: HD treatment completed and tolerated procedure well. UF 2L as ordered.
[2023-03-29] MEDS: BLOOD SUGAR DIAGNOSTIC 1 EACH STRIP IN SCH (07:55)
[2023-03-29 08:03] LABS: EOSINOPHILS % (AUTO) 3.2 % (0.0-6.0); HEMATOCRIT 23 % (39-51); HEMOGLOBIN 7.3 g/dL (13.5-17.5); LYMPHOCYTES # (AUTO) 2.7 K/uL (0.8-4.8); LYMPHOCYTES % (AUTO) 53.3 % (20.0-44.0); MEAN CORPUSCULAR HGB CONC 31 g/dl (31.0-36.0); MEAN CORPUSCULAR VOLUME 87 fL (80-96); MONOCYTES # (AUTO) 0.6 K/uL (0.1-1.30); MONOCYTES % (AUTO) 12.9 % (2.0-12.0); NEUTROPHILS # (AUTO) 1.5 K/uL (1.8-8.9); NEUTROPHILS % (AUTO) 30.6 % (43.0-81.0); PLATELET COUNT (AUTO) 122 K/uL (150-450); RED BLOOD CELL COUNT(AUTO) 2.69 MIL/uL (4.5-6.0)
[2023-03-29 08:37] LABS: CALCIUM, SERUM 8.3 mg/dL (8.5-10.1); CREATININE 2.2 mg/dL (0.6-1.3); MAGNESIUM 1.9 mg/dL (1.8-2.4); PHOSPHORUS 1.6 mg/dL (2.5-4.9); POTASSIUM 4.3 mmol/L (3.5-5.1)
[2023-03-29] MEDS: EPOETIN ALFA-EPBX 4,000 UNIT/ML VIAL IV SCH (08:48)
[2023-03-29 09:00] VITALS: BP 158/63
[2023-03-29] MEDS: LABETALOL HCL (100MG) 100 MG TABLET PO SCH (09:00)
[2023-03-29] MEDS: BRIMONIDINE TARTRATE OPHT SOLN 5 ML BOTTLE OP SCH (09:00)
[2023-03-29] MEDS: AMLODIPINE BESYLATE 10 MG TABLET PO SCH (09:00)
[2023-03-29] MEDS: ESCITALOPRAM OXALATE (10 MG) 10 MG TABLET PO SCH (09:00)
[2023-03-29] MEDS: ACIDOPHILUS/BULGARICUS 1 EACH TAB.CHEW PO SCH (09:00)
--- NOTE | 2023-03-29 10:30 | NUR ---
LAST PATTERN GRADER NOTE PATIENT DISCHARGED TO BOARD AND CARE, A/Ox4, ABLE TO MAKE NEEDS KNOWN. NON-COMPLIANT. PATIENT STABLE ON ROOM AIR, NO S/S OF RESPIRATORY DISTRESS. PATIENT REFUSED TO SIGN PAPER WORK AND ALLOW PHOTOS TO BE TAKEN, CHARGE NURSE AWARE. ALL INFORMATION GIVEN TO elastic assembler. PATIENT LEFT UNIT VIA [employer] @[phone] ACCOMPANIED BY TWO elastic assembler. CHARGE NURSE AND MD AWARE OF DISCHARGE.
[2023-03-29] MEDS ORDERED: K PHOS NEUTRAL 250 MG TABLET PO ONE (13:00)
== END 2023-03-29 10:30 | DRG 194 ==
LOC: ER 20:36 → TELE 03-20 06:26 → MED 03-23 11:42
PROVIDERS: ADMIT Nurse Practitioner Acute Care; ATTEND Nurse Practitioner Acute Care
PROC: 5A1D70Z Performance of Urinary Filtration, Intermittent, Less than 6 Hours Per Day (ICD-10-PCS; principal; 2023-03-20)
DX: I13.2 Hypertensive heart and chronic kidney disease with heart failure and with stage 5 chronic kidney disease, or end stage renal disease (principal); I31.39 Other pericardial effusion (noninflammatory); I27.20 Pulmonary hypertension, unspecified; D63.1 Anemia in chronic kidney disease; I69.351 Hemiplegia and hemiparesis following cerebral infarction affecting right dominant side; E87.1 Hypo-osmolality and hyponatremia; E87.5 Hyperkalemia; I50.23 Acute on chronic systolic (congestive) heart failure; I42.9 Cardiomyopathy, unspecified; N18.6 End stage renal disease; E11.22 Type 2 diabetes mellitus with diabetic chronic kidney disease; J98.11 Atelectasis; E78.5 Hyperlipidemia, unspecified; Z91.158 Patient's noncompliance with renal dialysis for other reason; H54.7 Unspecified visual loss; M89.8X9 Other specified disorders of bone, unspecified site; Z91.199 Patient's noncompliance with other medical treatment and regimen due to unspecified reason; Z99.2 Dependence on renal dialysis; Z20.822 Contact with and (suspected) exposure to COVID-19; Z79.4 Long term (current) use of insulin; Z79.51 Long term (current) use of inhaled steroids; Z79.899 Other long term (current) drug therapy; F32.A Depression, unspecified; J90 Pleural effusion, not elsewhere classified
CPT/HCPCS: 36415; 71045-TC; 80048-TC; 80053-TC; 80076-TC; 82962-TC; 83735-TC; 84100-TC; 84132-TC; 85025-TC; 86704; 86705; 86706; 86803; 87081-TC; 87340; 90935-TC; 93307-TC; C9803; G0378; J0360; J0885; J1815; J3490; J7030; Q0169